=== PATIENT | female | born 1960 | race Caucasian/White ===

== ENCOUNTER 2017-04-11 15:30 | Outpatient (CLI) | payer MEDICARE, OTHER | END 2017-04-11 15:31 | disposition critical access hospital (66) | LOC: EMS 15:30 | PROVIDERS: ATTEND Surgery | DX: R11.0 Nausea (principal); R19.7 Diarrhea, unspecified; R53.1 Weakness | CPT/HCPCS: A0425; A0429 ==

== ENCOUNTER 2017-04-11 16:03 | Emergency (ER) | payer MEDICARE, OTHER ==
[2017-04-11] MEDS ORDERED: SODIUM CHLORIDE 0.9% 1,000 ML IV ONE ×2 (16:14)
[2017-04-11] MEDS ORDERED: ONDANSETRON 4 MG/2 ML VIAL IVP STA (16:20)
--- NOTE | 2017-04-11 16:22 | ED Physician Documentation ---
PD HPI NVD - Stated complaint Stated Complaint: DIARRHEA - Chief complaint Chief Complaint: Abd Pain - History obtained from History obtained from: Patient, EMS - History of Present Illness Timing - onset: How many days ago (2) Timing - duration: Days (2) Timing - details: Gradual onset Pain level max: 0 Pain level now: 0 Associated symptoms: No: Fever, Abdominal pain, Chest pain, Hematemesis, Melena , Hematochezia, Dizzy, Near syncope / syncope, Loss of appetite, Weight loss, Dysuria, Hematuria, Vaginal bleeding Contributing factors: No: Sick contact, Bad food, Travel, Recent antibiotics, Alcohol use, Anticoagulated, Diabetes Improved by: Other (nothing) Worsened by: Other (nothing) Recently seen: Not recently seen - Additonal information Additional information: Patient is a 56-year-old diabetic female who presents to the emergency department with diarrhea for the past 2 days. She states that she has had 5 episodes of diarrhea between yesterday and today. No fevers. No abdominal pain. Has had nausea but no vomiting. Blood sugar 112 today. Review of Systems Constitutional: denies: Fever, Chills Ears: denies: Ear pain Nose: denies: Rhinorrhea / runny nose, Congestion Throat: denies: Sore throat Cardiac: denies: Chest pain / pressure Respiratory: denies: Cough GI: reports: Nausea, Diarrhea. 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 - Present Medications Home Medications: Ambulatory Orders Medication Instructions Recorded Confirmed Atenolol 200 mg PO DAILY 10/23/12 04/11/17 Diphenhydramine HCl [Benadryl] 25 mg PO DAILY 10/23/12 04/11/17 Insulin Glargine,Hum.rec.anlog 21 unit SQ BID 10/23/12 04/11/17 [Lantus] Levothyroxine [Synthroid] 150 mcg PO QDAC 10/23/12 04/11/17 Pregabalin [Lyrica] 75 mg PO BID 10/23/12 04/11/17 Sertraline [Zoloft] 100 mg PO DAILY 10/23/12 04/11/17 Telmisartan [Micardis] 80 mg PO HS 10/23/12 04/11/17 Warfarin Sodium [Coumadin] 2.5 mg PO DAILY 10/23/12 04/11/17 Warfarin Sodium [Coumadin] 5 mg PO DAILY 10/23/12 04/11/17 Simvastatin [Zocor] 20 mg PO DAILY 02/26/13 04/11/17 Ondansetron Odt [Zofran] 4 mg TL Q6H PRN #10 tablet 04/11/17 - Allergies Allergies/Adverse Reactions: Allergies Allergy/AdvReac Type Severity Reaction Status Date / Time naproxen [From Naprosyn] Allergy Intermediate Edema Verified 04/11/17 16:16 piroxicam [From Feldene] Allergy Intermediate Rash Verified 04/11/17 16:16 prednisone Allergy Intermediate Edema Verified 04/11/17 16:16 codeine AdvReac Intermediate Emesis Verified 04/11/17 16:16 - Social History Does the pt smoke?: No Smoking Status: Never smoker PD ED PE NORMAL - Vitals Vital signs reviewed: Yes - General General: Alert and oriented X 3, No acute distress, Well developed/nourished - HEENT HEENT: Moist mucous membranes - Neck Neck: Supple, no meningeal sign - Cardiac Cardiac: RRR, Strong equal pulses - Respiratory Respiratory: No respiratory distress, Clear bilaterally - Abdomen Abdomen: Soft, Non tender, Non distended - Back Back: No CVA TTP - Derm Derm: Warm and dry, No rash - Extremities Extremities: No edema - Neuro Neuro: Alert and oriented X 3 - Psych Psych: Normal mood, Normal affect Results - Vitals Vitals: Vital Signs - 24 hr 04/11/17 04/11/17 04/11/17 16:13 16:20 18:12 Temperature 35.8 C L 37.0 C Heart Rate 56 L 80 Respiratory 25 H 14 Rate Blood Pressure 144/78 H 125/60 O2 Saturation 99 95 Oxygen O2 Source Room air - Labs Labs: Laboratory Tests 04/11/17 04/11/17 04/11/17 16:36 16:36 16:36 WBC 6.2 RBC 3.95 L Hgb 12.4 Hct 37.5 MCV 94.9 MCH 31.3 H MCHC 33.0 RDW 13.7 Plt Count 123 L MPV 8.1 Neut # 3.8 Lymph # 1.5 [place] # 0.6 Eos # 0.2 Baso # 0.1 Absolute Nucleated RBC 0.01 Nucleated RBC % 0.1 PT 24.5 H INR 2.2 H Sodium 139 Potassium 4.0 Chloride 104 Carbon Dioxide 24 Anion Gap 11.0 BUN 17 Creatinine 1.5 H Estimated GFR (MDRD) 36 L Glucose 103 H Calcium 9.4 Total Bilirubin 1.1 H AST 200 H ALT 32 Alkaline Phosphatase 58 Total Protein 7.2 Albumin 3.8 Globulin 3.4 Albumin/Globulin Ratio 1.1 Lipase 38 PD MEDICAL DECISION MAKING - ED course Complexity details: reviewed results, re-evaluated patient, considered differential, d/w patient ED course: Patient is a 56-year-old diabetic female who presents to the emergency department with diarrhea and nausea for 2 days. Has had approximately 5 total episodes of diarrhea. No diarrhea here. Feels better after IV fluids and Zofran. Tolerating p.o. without difficulty. Abdomen is soft, nontender nondistended. No evidence of diverticulitis, bowel obstruction, sepsis. Will continue supportive care and follow-up with her doctor. Diarrhea is nonbloody. Patient counseled regarding signs and symptoms for which I believe and urgent re-evaluation would be necessary. Patient with good understanding of and agreement to plan and is comfortable going home at this time This document was made in part using voice recognition software. While efforts are made to proofread this document, sound alike and grammatical errors may occur. Departure - Departure Disposition: 01 Home, Self Care Clinical Impression: Viral gastroenteritis Condition: Good Instructions: ED Gastroenteritis Viral Follow-Up: your,doctor in 1 week [Other] Prescriptions: Ondansetron Odt [Zofran] 4 mg TL Q6H PRN #10 tablet PRN Reason: Nausea / Vomiting Comments: Return if you worsen. This should improve over the next 2-3 days. Discharge Date/Time: 04/11/17 18:14
[2017-04-11] MEDS ORDERED: ONDANSETRON 4 MG/2 ML VIAL ONE (16:30)
[2017-04-11 16:50] LABS: BASOPHILS # (AUTO) 0.1 10^3/uL (0.0-0.1); EOSINOPHILS # (AUTO) 0.2 10^3/uL (0.0-0.7); EOSINOPHILS % (AUTO) 2.5 %; HCT - HEMATOCRIT 37.5 % (37.0-47.0); HGB - HEMOGLOBIN 12.4 g/dL (12.0-16.0); LYMPHOCYTES # (AUTO) 1.5 10^3/uL (1.5-3.5); LYMPHOCYTES % (AUTO) 24.9 %; MEAN CORPUSCULAR HEMOGLOBIN 31.3 pg (27.0-31.0); MEAN CORPUSCULAR VOLUME 94.9 fL (81.0-99.0); MEAN PLATELET VOLUME 8.1 fL (7.9-10.8); MONOCYTES # (AUTO) 0.6 10^3/uL (0.0-1.0); MONOCYTES % (AUTO) 9.7 %; NEUTROPHILS # (AUTO) 3.8 10^3/uL (1.5-6.6); NEUTROPHILS % (AUTO) 61.9 %; NUCLEATED RED BLOOD CELLS AUTO 0.1 /100WBC; RED BLOOD COUNT 3.95 10^6/uL (4.20-5.40); RED CELL DISTRIBUTION WIDTH 13.7 % (12.0-15.0); UNCORRECTED WHITE BLOOD COUNT 6.2 x10^3/uL; WHITE BLOOD COUNT 6.2 x10^3/uL (4.8-10.8)
[2017-04-11 17:02] LABS: ALBUMIN/GLOBULIN RATIO 1.1 (1.0-2.2); BILIRUBIN,TOTAL 1.1 mg/dL (0.2-1.0); CALCIUM 9.4 mg/dL (8.5-10.3); CREATININE 1.5 mg/dL (0.4-1.0); TOTAL PROTEIN 7.2 g/dL (6.7-8.2)
[2017-04-11 17:21] LABS: INR 2.2 (0.8-1.2); PT - PROTHROMBIN TIME 24.5 secs (9.9-12.6)
[2017-04-11 18:13] VITALS: BP 125/60
== END 2017-04-11 18:14 | disposition home or self-care (01) ==
LOC: EDUNIT# → ED 16:03
DX: A08.4 Viral intestinal infection, unspecified (principal); I10 Essential (primary) hypertension; E78.00 Pure hypercholesterolemia, unspecified; E03.9 Hypothyroidism, unspecified; Z79.01 Long term (current) use of anticoagulants
CPT/HCPCS: 36415; 80053; 83690; 85025; 85610; 96361; 96374; 99284

== ENCOUNTER 2021-03-08 12:50 | Outpatient (CLI) | payer MEDICARE, OTHER | END 2021-03-08 12:51 | disposition critical access hospital (66) | LOC: EMS 12:50 | DX: R42 Dizziness and giddiness (principal); R06.02 Shortness of breath; I95.1 Orthostatic hypotension | CPT/HCPCS: A0425; A0427 ==

== ENCOUNTER 2021-03-08 13:14 | Emergency (ER) | payer MEDICARE, OTHER ==
[2021-03-08 14:05] LABS: BASOPHILS % (AUTO) 0.6 %; EOSINOPHILS # (AUTO) 0.3 10^3/uL (0.0-0.7); EOSINOPHILS % (AUTO) 3.6 %; HCT - HEMATOCRIT 35.8 % (37.0-47.0); HGB - HEMOGLOBIN 10.9 g/dL (12.0-16.0); LYMPHOCYTES # (AUTO) 1.2 10^3/uL (1.5-3.5); LYMPHOCYTES % (AUTO) 16.5 %; MEAN CORPUSCULAR HEMOGLOBIN 29.2 pg (27.0-31.0); MEAN CORPUSCULAR HGB CONC 30.4 g/dL (32.0-36.0); MEAN PLATELET VOLUME 10.6 fL (7.9-10.8); MONOCYTES # (AUTO) 0.7 10^3/uL (0.0-1.0); MONOCYTES % (AUTO) 8.9 %; NEUTROPHILS # (AUTO) 5.1 10^3/uL (1.5-6.6); NEUTROPHILS % (AUTO) 70.1 %; PLT - PLATELET COUNT 157 10^3/uL (130-450); RED BLOOD COUNT 3.73 10^6/uL (4.20-5.40); RED CELL DISTRIBUTION WIDTH 14.6 % (12.0-15.0); WHITE BLOOD COUNT 7.3 x10^3/uL (4.8-10.8)
[2021-03-08 14:06] LABS: VBG HCO3 24.6 mmol/L (23-28); VBG PCO2 45.6 mmHg (41-51); VBG PH 7.34 (7.31-7.41)
[2021-03-08 14:12] LABS: INR 1.4 (0.8-1.2); PT - PROTHROMBIN TIME 15.7 secs (9.9-12.6)
[2021-03-08 14:18] LABS: ALBUMIN 3.1 g/dL (3.2-5.5); ALBUMIN/GLOBULIN RATIO 0.7 (1.0-2.2); ALKALINE PHOSPHATASE 82 IU/L (42-121); ALT ALANINE AMINOTRANSFERASE 10 IU/L (10-60); AST ASPARTATE AMINOTRANSFERASE 15 IU/L (10-42); BILIRUBIN,TOTAL 1.1 mg/dL (0.2-1.0); BUN - BLOOD UREA NITROGEN 19 mg/dL (6-20); CALCIUM 8.8 mg/dL (8.5-10.3); CARBON DIOXIDE - CO2 22 mmol/L (21-32); CHLORIDE 103 mmol/L (101-111); CREATININE 1.5 mg/dL (0.4-1.0); GFR - MDRD 35 (>89); GLUCOSE 115 mg/dL (70-100); LIPASE 38 U/L (22-51); POTASSIUM 3.4 mmol/L (3.5-5.0); SODIUM 136 mmol/L (135-145); TOTAL PROTEIN 7.5 g/dL (6.7-8.2)
--- NOTE | 2021-03-08 14:44 | XRAY Report ---
PROCEDURE: Chest 1 View X-Ray INDICATIONS: Chest pain TECHNIQUE: One view of the chest was acquired. COMPARISON: Prior comparison dated 04/14/2010 not available for review. Comparison FINDINGS: Surgical changes and devices: None. Lungs and pleura: No pleural effusions or pneumothorax. There is chronic appearing interstitial prom inence predominantly in the right upper lung zone without focal consolidation. Findings are most pron ounced in the right upper lung zone. No pneumothorax or pleural effusion.. Mediastinum: Mediastinal contours appear normal. Heart size is normal. Bones and chest wall: No suspicious bony lesions. Overlying soft tissues appear unremarkable. IMPRESSION: Chronic appearing interstitial prominence most pronounced in the right upper lung zone. No focal airs pace disease. Recommend follow-up chest radiograph 6-8 weeks after treatment to document stability ve rsus resolution. Reviewed by: Choco Nixon MD on 03/08/2021 2:43 PM PDT Approved by: Choco Nixon MD on 03/08/2021 2:43 PM PDT Station ID: [id number]
[2021-03-08 14:48] LABS: KETONES, SERUM (ACETEST) NEGATIVE (NEGATIVE)
[2021-03-08] MEDS ORDERED: SODIUM CHLORIDE 0.9% 1,000 ML IV STA (15:09)
--- NOTE | 2021-03-08 15:18 | XRAY Report ---
PROCEDURE: Tib/Fib RT INDICATIONS: RLE wound TECHNIQUE: 2 views of the tibia and fibula were acquired. COMPARISON: Right lower leg MRI 02/26/2014 FINDINGS: Bones: No acute fractures or dislocations. No suspicious bony lesions. The anterior cortex of the tibia appears mildly irregular on the lateral view, which may be secondary to overlying calcification s versus possibly subacute or chronic osteomyelitis. Soft tissues: A large area of skin irregularity is seen at the anterolateral aspect of the lower leg . Prominent soft tissue calcifications are present. Soft tissue edema is seen. IMPRESSION: Large area of skin irregularity with soft tissue edema and soft tissue calcifications, consistent wit h patient's known chronic wound. There is an irregular appearance of the adjacent anterior cortex of the tibia that may be partially related to superimposed soft tissue calcifications, although a subacu te to chronic osteomyelitis is not excluded. Reviewed by: Fredrick Hernandez MD on 03/08/2021 3:16 PM PDT Approved by: Fredrick Hernandez MD on 03/08/2021 3:16 PM PDT Station ID: [id number]
--- NOTE | 2021-03-08 15:20 | ED Physician Documentation ---
History of Present Illness - Stated complaint Stated Complaint: DIZZINESS - Chief complaint Chief Complaint: Cardiac - History obtained from History obtained from: Patient - History of Present Illness Timing: Today Pain level max: 0 Pain level now: 0 - Additonal information Additional information: Patient is a 60-year-old female who presents to the emergency department stating she has had intermittent lightheadedness and dizziness for the past month. Comes and goes. Feels like she is lightheaded when she stands up. Worse with standing, better with lying down. She states she is diabetic but has been able to control her sugars with diet and therefore is off insulin now. 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 She states that she has not been seeing wound care but has been taking care of this at home herself. She is concerned about potential infection. No fevers. No chills. No falls. No trauma. She states that the wound has been present on her leg for the last 20 years. Has been through multiple rounds of wound care without resolution. She states she has had osteomyelitis in her tibia before. 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 - Present Medications Home Medications: Ambulatory Orders Medication Instructions Recorded Confirmed Atenolol 200 mg PO DAILY 10/23/12 04/11/17 Insulin Glargine,Hum.rec.anlog 21 unit SQ BID 10/23/12 04/11/17 [Lantus] Levothyroxine [Synthroid] 150 mcg PO QDAC 10/23/12 04/11/17 Pregabalin [Lyrica] 75 mg PO BID 10/23/12 04/11/17 Sertraline [Zoloft] 100 mg PO DAILY 10/23/12 04/11/17 Telmisartan [Micardis] 80 mg PO HS 10/23/12 04/11/17 Warfarin Sodium [Coumadin] 2.5 mg PO DAILY 10/23/12 04/11/17 Warfarin Sodium [Coumadin] 5 mg PO DAILY 10/23/12 04/11/17 diphenhydrAMINE HCl [Benadryl] 25 mg PO DAILY 10/23/12 04/11/17 Simvastatin [Zocor] 20 mg PO DAILY 02/26/13 04/11/17 Ondansetron Odt [Zofran] 4 mg TL Q6H PRN #10 tablet 04/11/17 Doxycycline Monohydrate 100 mg PO BID #20 cap 03/08/21 Metoprolol Tartrate [Lopressor] 25 mg PO Q6H PRN #30 tablet 03/08/21 cephALEXin [Keflex] 500 mg PO Q6H #40 cap 03/08/21 - Allergies Allergies/Adverse Reactions: Allergies Allergy/AdvReac Type Severity Reaction Status Date / Time naproxen [From Naprosyn] Allergy Intermediate Edema Verified 04/11/17 16:16 piroxicam [From Feldene] Allergy Intermediate Rash Verified 04/11/17 16:16 prednisone Allergy Intermediate Edema Verified 04/11/17 16:16 codeine AdvReac Intermediate Emesis Verified 04/11/17 16:16 - Social History Does the pt smoke?: No Smoking Status: Never smoker PD ED PE NORMAL - Vitals Vital signs reviewed: Yes - General General: Alert and oriented X 3, No acute distress - HEENT HEENT: Moist mucous membranes - Neck Neck: Supple, no meningeal sign - Cardiac Cardiac: RRR - Respiratory Respiratory: No respiratory distress, Clear bilaterally - Abdomen Abdomen: Soft, Non tender, Non distended - Derm Derm: Warm and dry - Extremities Extremities: Other (There is a large open wound to the right anterior tibia. Foul-smelling and draining. Appears chronic in nature. It is approximately 6 x 10 cm.) - Neuro Neuro: Alert and oriented X 3 Results - Vitals Vitals: Vital Signs - 24 hr 03/08/21 03/08/21 03/08/21 13:15 14:03 16:08 Temperature 36.2 C L Heart Rate 117 H 106 H 85 Respiratory 16 11 L 16 Rate Blood Pressure 104/71 97/73 117/70 O2 Saturation 99 100 97 Oxygen O2 Source Room air - EKG (time done) 1330 Rate: Rate (enter#) (103) Rhythm: Atrial fibrillation [place]: Normal Intervals: Normal [place] QRS: Normal Ischemia: Normal ST segments - Labs Labs: Microbiology 03/08/21 15:40 Wound Culture - Preliminary Left Lower Extremity - Abscess Laboratory Tests 03/08/21 03/08/21 03/08/21 13:52 13:52 13:57 WBC 7.3 RBC 3.73 L Hgb 10.9 L Hct 35.8 L MCV 96.0 MCH 29.2 MCHC 30.4 L RDW 14.6 Plt Count 157 MPV 10.6 Neut # (Auto) 5.1 Lymph # (Auto) 1.2 L [place] # (Auto) 0.7 Eos # (Auto) 0.3 Baso # (Auto) 0.0 Absolute Nucleated RBC 0.00 Nucleated RBC % 0.0 ESR PT 15.7 H INR 1.4 H VBG pH 7.340 VBG pCO2 45.6 VBG pO2 34.0 VBG HCO3 24.6 VBG Total CO2 26.0 VBG O2 Saturation 61.0 VBG Base Excess -1.0 Sodium Potassium Chloride Carbon Dioxide Anion Gap BUN Creatinine Estimated GFR (MDRD) Glucose Calcium Total Bilirubin AST ALT Alkaline Phosphatase Troponin I High Sens C-Reactive Protein Total Protein Albumin Globulin Albumin/Globulin Ratio Lipase Serum Ketones 03/08/21 03/08/21 03/08/21 13:57 13:57 13:57 WBC RBC Hgb Hct MCV MCH MCHC RDW Plt Count MPV Neut # (Auto) Lymph # (Auto) [place] # (Auto) Eos # (Auto) Baso # (Auto) Absolute Nucleated RBC Nucleated RBC % ESR 77 H PT INR VBG pH VBG pCO2 VBG pO2 VBG HCO3 VBG Total CO2 VBG O2 Saturation VBG Base Excess Sodium 136 Potassium 3.4 L Chloride 103 Carbon Dioxide 22 Anion Gap 11.0 BUN 19 Creatinine 1.5 H Estimated GFR (MDRD) 35 L Glucose 115 H Calcium 8.8 Total Bilirubin 1.1 H AST 15 ALT 10 Alkaline Phosphatase 82 Troponin I High Sens 11.1 C-Reactive Protein Total Protein 7.5 Albumin 3.1 L Globulin 4.4 H Albumin/Globulin Ratio 0.7 L Lipase 38 Serum Ketones NEGATIVE 03/08/21 13:57 WBC RBC Hgb Hct MCV MCH MCHC RDW Plt Count MPV Neut # (Auto) Lymph # (Auto) [place] # (Auto) Eos # (Auto) Baso # (Auto) Absolute Nucleated RBC Nucleated RBC % ESR PT INR VBG pH VBG pCO2 VBG pO2 VBG HCO3 VBG Total CO2 VBG O2 Saturation VBG Base Excess Sodium Potassium Chloride Carbon Dioxide Anion Gap BUN Creatinine Estimated GFR (MDRD) Glucose Calcium Total Bilirubin AST ALT Alkaline Phosphatase Troponin I High Sens C-Reactive Protein 3.3 H Total Protein Albumin Globulin Albumin/Globulin Ratio Lipase Serum Ketones - Rads (name of study) R tib fib xray Radiology: Final report received, EMP read contemporaneously, See rad report cxr Radiology: Final report received, EMP read contemporaneously, See rad report PD MEDICAL DECISION MAKING - ED course Complexity details: reviewed results, re-evaluated patient, considered differential, d/w patient ED course: 60-year-old female with 2 issues, the first appears to be paroxysmal atrial fibrillation. She converted back to a sinus rhythm while in the emergency de partment and her dizziness resolved. She is already anticoagulated and on a beta-allison. She states that she has had an irregular heartbeat in the past. The second is the right lower extremity wound, chronic for 20 years the patient states has been seen by wound care multiple times. Wound culture obtained. The wound dried by being exposed to the air in the emergency department, recommend that she leave it open to the air as much as possible. Mepitel was placed over the wound bed. We will prescribe antibiotics, close follow-up with her doctor and recommend a wound care referral. No evidence of active osteomyelitis. The patient states she has had prior osteomyelitis in that leg. Patient counseled regarding signs and symptoms for which I believe and urgent re-evaluation would be necessary. Patient with good understanding of and agreement to plan and is comfortable going home at this time This document was made in part using voice recognition software. While efforts are made to proofread this document, sound alike and grammatical errors may occur. IMPRESSION: Large area of skin irregularity with soft tissue edema and soft tissue calcifications, consistent with patient's known chronic wound. There is an irregular appearance of the adjacent anterior cortex of the tibia that may be partially related to superimposed soft tissue calcifications, although a subacute to chronic osteomyelitis is not excluded. IMPRESSION: Chronic appearing interstitial prominence most pronounced in the right upper lung zone. No focal airspace disease. Recommend follow-up chest radiograph 6-8 weeks after treatment to document stability versus resolution. Departure - Departure Disposition: Home, Self Care Clinical Impression: Paroxysmal atrial fibrillation, Chronic wound of extremity Condition: Good Instructions: ED Afib, ED Wound Care Follow-Up: Rosie Franklin MD [Primary Care Provider] - Within 1 week Prescriptions: Doxycycline Monohydrate 100 mg PO BID #20 cap cephALEXin [Keflex] 500 mg PO Q6H #40 cap Metoprolol Tartrate [Lopressor] 25 mg PO Q6H PRN #30 tablet PRN Reason: Tachycardia Comments: You were found to have paroxysmal atrial fibrillation today. You are already on metoprolol for this. We will add short acting metoprolol if you feel your heart racing. Please follow-up with your doctor for further care. Continue your Eliquis at home. Return if you worsen. You should also be referred to wound care for the chronic wound on your leg. We will start you on antibiotics, but this will need long-term care. The Mepitel can stay in place for 10 to 14 days and you can change the outer dressing. Return if you worsen. Try to leave the wound open to the air as much as possible. Your prescriptions were sent to the [facility] today. Discharge Date/Time: 03/08/21 16:20
[2021-03-08] MEDS ORDERED: DOXYCYCLINE 100 MG TABLET PO STA (15:50)
[2021-03-08] MEDS ORDERED: cephALEXin 250 MG CAPSULE PO STA (15:50)
[2021-03-08 16:09] VITALS: BP 117/70
== END 2021-03-08 16:20 | disposition home or self-care (01) ==
LOC: EDUNIT# → ED 13:14
DX: I48.0 Paroxysmal atrial fibrillation (principal); E11.622 Type 2 diabetes mellitus with other skin ulcer; L97.819 Non-pressure chronic ulcer of other part of right lower leg with unspecified severity; Z79.01 Long term (current) use of anticoagulants
CPT/HCPCS: 36415; 71045; 73590; 80053; 82009; 82803; 83690; 84484; 85025; 85610; 85651; 86140; 87070; 87181; 87205; 93005; 99284; A9270

== ENCOUNTER 2021-03-20 09:08 | Outpatient (CLI) | payer MEDICARE, OTHER | END 2021-03-20 09:09 | disposition critical access hospital (66) | LOC: EMS 09:08 | DX: R53.1 Weakness (principal); R42 Dizziness and giddiness; S81.801A Unspecified open wound, right lower leg, initial encounter | CPT/HCPCS: A0425; A0429 ==

== ENCOUNTER 2021-03-20 09:28 | Emergency (ER) | payer MEDICARE, OTHER ==
[2021-03-20] MEDS ORDERED: SODIUM CHLORIDE 0.9% 1,000 ML IV STA (09:39)
--- NOTE | 2021-03-20 09:47 | ED Physician Documentation ---
History of Present Illness - Stated complaint Stated Complaint: LEG INFECTION - Chief complaint Chief Complaint: Ext Problem - History obtained from History obtained from: Patient, EMS - Additonal information Additional information: Patient comes emergency department via EMS for chief complaint of generalized weakness. The patient has a history of chronic pain and diabetes. 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 Patient states that she has not noticed any drainage from the wound and the skin does not look any redder than usual. She states she saw her primary doctor, who she clarifies to be "Dr. Bassett", last week. At that time, bone was reportedly seen in the floor of the wound, so Augmentin was started. Patient denies having had any imaging studies to determine whether she had osteomyelitis. She is not on any IV antibiotics. The patient has not had any fevers or chills. No swelling of the leg. She states that she has just been feeling more "lethargic", which she clarifies to be a low energy feeling. Her finally called EMS for her today. The patient states she has been drinking plenty of water but has not been eating healthful food recently. She takes a long-acting oxycodone as well as a shorter acting for breakthrough pain. No other symptoms of illness, such as cough, shortness of breath, abdominal pain, nausea, or vomiting. No diarrhea or dysuria. Review of Systems Ten Systems: 10 systems reviewed and negative Constitutional: reports: Reviewed and negative Eyes: reports: Reviewed and negative Ears: reports: Reviewed and negative Nose: reports: Reviewed and negative Throat: reports: Reviewed and negative Cardiac: reports: Reviewed and negative Respiratory: reports: Reviewed and negative GI: reports: Reviewed and negative : reports: Reviewed and negative Skin: reports: Reviewed and negative Musculoskeletal: reports: Reviewed and negative Neurologic: reports: Reviewed and negative Psychiatric: reports: Reviewed and negative Endocrine: reports: Reviewed and negative Immunocompromised: reports: Reviewed and negative PD PAST MEDICAL HISTORY - Past Medical History Cardiovascular: Hypertension, High cholesterol Respiratory: None Endocrine/Autoimmune: HyPOthyroidism, Other : None HEENT: None Psych: Depression Musculoskeletal: Fatigue Derm: None - Past Surgical History /[employer]EL: section, 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 - Present Medications Home Medications: Ambulatory Orders Medication Instructions Recorded Confirmed Levothyroxine [Synthroid] 150 mcg PO QDAC 10/23/12 03/20/21 Pregabalin [Lyrica] 75 mg PO BID 10/23/12 03/20/21 Sertraline [Zoloft] 100 mg PO DAILY 10/23/12 03/20/21 Telmisartan [Micardis] 80 mg PO HS 10/23/12 03/20/21 Simvastatin [Zocor] 40 mg PO DAILY 02/26/13 03/20/21 Amox/Clav 500/125 [Augmentin 1 tablet PO Q12H 03/20/21 03/20/21 500/125] Apixaban [Eliquis] 5 mg ORAL BID 03/20/21 03/20/21 Duloxetine HCl [Cymbalta] 60 mg PO DAILY 03/20/21 03/20/21 Metoprolol Succinate [Toprol Xl] 25 mg PO DAILY 03/20/21 03/20/21 oxyCODONE ER [OxyCONTIN] 10 mg PO Q12H 03/20/21 03/20/21 oxyCODONE [Roxicodone] 5 mg PO Q8HR PRN 03/20/21 03/20/21 - Allergies Allergies/Adverse Reactions: Allergies Allergy/AdvReac Type Severity Reaction Status Date / Time naproxen [From Naprosyn] Allergy Intermediate Edema Verified 04/11/17 16:16 piroxicam [From Feldene] Allergy Intermediate Rash Verified 04/11/17 16:16 prednisone Allergy Intermediate Edema Verified 04/11/17 16:16 codeine AdvReac Intermediate Emesis Verified 04/11/17 16:16 - Social History Does the pt smoke?: No Smoking Status: Never smoker PD ED PE NORMAL - Vitals Vital signs reviewed: Yes - General General: Alert and oriented X 3, No acute distress, Well developed/nourished (Obese) - HEENT HEENT: Atraumatic, PERRL, EOMI, Moist mucous membranes - Neck Neck: Supple, no meningeal sign - Cardiac Cardiac: RRR, No murmur, Strong equal pulses - Respiratory Respiratory: No respiratory distress, Clear bilaterally - Abdomen Abdomen: Soft, Non tender, Other (Obese abdomen, nontender) - Back Back: No CVA TTP - Derm Derm: Warm and dry, No rash, Other (Large, dry, scabbed, chronic appearing anterior tibial ulcer the right lower extremity. Extensive scarring around wound, but no intense erythema or induration. No fluctuance.) - Extremities Extremities: No deformity, No edema, No calf tenderness / cord - Neuro Neuro: Alert and oriented X 3 - Psych Psych: Normal mood, Normal affect Results - Vitals Vitals: Oxygen O2 Source Room air - Labs Labs: Laboratory Tests 03/20/21 03/20/21 03/20/21 09:51 10:01 10:01 WBC 15.2 H RBC 4.10 L Hgb 12.0 Hct 38.1 MCV 92.9 MCH 29.3 MCHC 31.5 L RDW 15.6 H Plt Count 225 MPV 10.6 Neut # (Auto) 9.6 H Lymph # (Auto) 3.7 H Am[place] # (Auto) 1.6 H Eos # (Auto) 0.1 Baso # (Auto) 0.1 Absolute Nucleated RBC 0.02 Nucleated RBC % 0.1 Manual Slide Review Indicated RBC Morph Micro Appear 3+ ANISOCYTOSIS Sodium 135 Potassium 3.9 Chloride 100 L Carbon Dioxide 22 Anion Gap 13.0 BUN 41 H Creatinine 2.0 H Estimated GFR (MDRD) 25 L Glucose 139 H Calcium 8.8 Total Bilirubin 1.5 H AST 20 ALT 13 Alkaline Phosphatase 107 Total Protein 7.4 Albumin 3.4 Globulin 4.0 Albumin/Globulin Ratio 0.9 L Lipase 41 Urine Color DARK YELLOW Urine Clarity HAZY Urine pH 5.0 Ur Specific [place] >=1.030 H Urine Protein NEGATIVE Urine Glucose (UA) NEGATIVE Urine Ketones TRACE Urine Occult Blood SMALL H Urine Nitrite NEGATIVE Urine Bilirubin NEGATIVE Urine Urobilinogen 0.2 (NORMAL) Ur Leukocyte Esterase SMALL H Urine RBC 0-5 Urine WBC 11-25 H Ur Squamous Epith Cells MANY Squamous H Urine Bacteria Few Ur Microscopic Review INDICATED Urine Culture Comments NOT INDICATED PD MEDICAL DECISION MAKING - ED course Complexity details: reviewed results, re-evaluated patient, considered differential, d/w patient ED course: Patient was given the remainder of the liter 0.9 normal saline she had been started on by EMS and was worked up with laboratory studies and UA, as well as EKG. Her work-up was unremarkable. I did not find any evidence of infection of the chronic, scabbed ulcer on her anteroior tibial area. Pt is stable for d/c home. We have discussed ongoing management of the wound and the usual indications for return. Departure - Departure Disposition: Home, Self Care Clinical Impression: Dehydration Condition: Stable Instructions: ED Dehydration Comments: The labs show evidence of dehydration, which has been treated today with a liter of normal saline. Otherwise, no acute concerns have turned up on emergency department evaluation. Please be sure to drink lots of water throughout the day. You should aim to drink 8 to 10 glasses of water per day as in adults. Please follow-up with your primary doctor. Your wound does not appear to have infection on top of the chronic open sore and scabbing. Please continue your antibiotics until done. Discharge Date/Time: 03/20/21 11:40
[2021-03-20 10:07] LABS: GLUCOSE, URINE (UA) NEGATIVE (NEGATIVE); KETONES,URINE (UA) TRACE mg/dL (NEGATIVE); LEUKOCYTE ESTERASE, URINE SMALL (NEGATIVE); NITRITE,URINE NEGATIVE (NEGATIVE); OCCULT BLOOD,URINE SMALL (NEGATIVE); PROTEIN,URINE NEGATIVE (NEGATIVE); UROBILINOGEN,URINE 0.2 (NORMAL) E.U./dL (NORMAL)
[2021-03-20 10:07] LABS: BASOPHILS # (AUTO) 0.1 10^3/uL (0.0-0.1); BASOPHILS % (AUTO) 0.5 %; EOSINOPHILS # (AUTO) 0.1 10^3/uL (0.0-0.7); EOSINOPHILS % (AUTO) 0.4 %; HCT - HEMATOCRIT 38.1 % (37.0-47.0); LYMPHOCYTES # (AUTO) 3.7 10^3/uL (1.5-3.5); LYMPHOCYTES % (AUTO) 24.4 %; MEAN CORPUSCULAR HEMOGLOBIN 29.3 pg (27.0-31.0); MEAN CORPUSCULAR HGB CONC 31.5 g/dL (32.0-36.0); MEAN CORPUSCULAR VOLUME 92.9 fL (81.0-99.0); MEAN PLATELET VOLUME 10.6 fL (7.9-10.8); MONOCYTES # (AUTO) 1.6 10^3/uL (0.0-1.0); MONOCYTES % (AUTO) 10.5 %; NEUTROPHILS # (AUTO) 9.6 10^3/uL (1.5-6.6); NEUTROPHILS % (AUTO) 63.3 %; NRBC ABSOLUTE COUNT (AUTO) 0.02 x10^3/uL; NUCLEATED RED BLOOD CELLS AUTO 0.1 /100WBC; PLT - PLATELET COUNT 225 10^3/uL (130-450); RED CELL DISTRIBUTION WIDTH 15.6 % (12.0-15.0); WHITE BLOOD COUNT 15.2 x10^3/uL (4.8-10.8)
[2021-03-20 10:13] LABS: SLIDE REVIEW? Indicated
[2021-03-20 10:14] LABS: BILIRUBIN,URINE NEGATIVE (NEGATIVE); CLARITY,URINE HAZY (CLEAR); ICTOTEST,URINE NEGATIVE
[2021-03-20 10:19] LABS: BACTERIA,URINE Few /HPF (None Seen); RBC,URINE 0-5 /HPF (0-5); SQUAMOUS EPITHELIAL CELL,UR MANY Squamous (<= Few)
[2021-03-20 10:21] LABS: ALBUMIN 3.4 g/dL (3.2-5.5); ALBUMIN/GLOBULIN RATIO 0.9 (1.0-2.2); BILIRUBIN,TOTAL 1.5 mg/dL (0.2-1.0); CALCIUM 8.8 mg/dL (8.5-10.3); POTASSIUM 3.9 mmol/L (3.5-5.0); TOTAL PROTEIN 7.4 g/dL (6.7-8.2)
[2021-03-20 10:31] LABS: RBC MORPHOLOGY (MULTIPLE) 3+ ANISOCYTOSIS (NORMAL)
[2021-03-20 11:34] VITALS: BP 114/79
== END 2021-03-20 11:40 | disposition home or self-care (01) ==
LOC: EDUNIT# → ED 09:28
DX: E86.0 Dehydration (principal); E11.622 Type 2 diabetes mellitus with other skin ulcer; L97.219 Non-pressure chronic ulcer of right calf with unspecified severity; I10 Essential (primary) hypertension; I44.1 Atrioventricular block, second degree; I49.3 Ventricular premature depolarization; Z79.01 Long term (current) use of anticoagulants
CPT/HCPCS: 36415; 80053; 81001; 81003; 83690; 85025; 87086; 93005; 96360; 99283

== ENCOUNTER 2021-03-22 08:44 | Outpatient (CLI) | payer MEDICARE, OTHER | END 2021-03-22 08:45 | disposition critical access hospital (66) | LOC: EMS 08:44 | DX: R55 Syncope and collapse (principal); R53.1 Weakness; R46.4 Slowness and poor responsiveness | CPT/HCPCS: A0425; A0429 ==

== ENCOUNTER 2021-03-22 09:06 | Inpatient (IN) | payer MEDICARE, OTHER ==
--- NOTE | 2021-03-22 09:19 | ED Physician Documentation ---
PD HPI SYNCOPE - Stated complaint Stated Complaint: AMS - History obtained from History obtained from: Patient - History of Present Illness Witnessed: Unwitnessed (feeling lightheaded and generally weak with recent meds, antibiotics and diarrhea. Was on Keflex and Doxy for leg infection, with culture showing e.coli. PMD changed to Augmentin 3 days ago and fatigue/diarrhea worse.) Timing - onset: How many days ago (worse weakness and lightheaded the past few days, and increased diarrhea a lot since change to augmentin.), How many weeks ago (has had feeling of fatigue for 2 weeks. Seen in ER for apparent new onset atrial fib (new Dx anyway). Also eval of leg infection. started on abx and metoprolol. She states diarrhea some with that. and feeling lightheaded, which was worse the past few days. She held her metoprolol the past 3 days.) Preceding symptoms: Nausea / vomiting (nausea and less intake, no vomiting. Has diarrhea.), Light headed, Generalized weakness. No: Headache, Chest pain, Palpitations, Abdominal pain Contributing factors: Recent med change (started on Metoprolol for atrial fib on . Has not taken it the past 3-4 days due to weakness. Has had diarrhea since abx, worse with abx change to Augmentin 3 days ago.), Just stood up Injury occurred: No: Fell, Head injury, Neck injury Similar symptoms before: Has not had sx before Recently seen: Clinic, Emergency Dept Review of Systems Constitutional: denies: Fever, Chills Nose: denies: Rhinorrhea / runny nose, Congestion Throat: denies: Sore throat Cardiac: denies: Chest pain / pressure, Palpitations, Pedal edema, Calf pain Respiratory: reports: Dyspnea. denies: Cough, Wheezing GI: reports: Nausea, Diarrhea. denies: Abdominal Pain, Vomiting, Constipation, Bloody / black stool : denies: Dysuria, Frequency Skin: denies: Rash, Lesions Musculoskeletal: denies: Extremity swelling Neurologic: reports: Generalized weakness, Near syncope. 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 - Present Medications Home Medications: Ambulatory Orders Medication Instructions Recorded Confirmed Pregabalin [Lyrica] 150 mg PO BID 10/23/12 03/22/21 Amox/Clav 500/125 [Augmentin 1 tablet PO Q12H 03/20/21 03/22/21 500/125] Apixaban [Eliquis] 5 mg PO BID 03/20/21 03/22/21 Duloxetine HCl [Cymbalta] 60 mg PO DAILY 03/20/21 03/22/21 Metoprolol Succinate [Toprol Xl] 25 mg PO DAILY 03/20/21 03/22/21 oxyCODONE ER [OxyCONTIN] 10 mg PO BID 03/20/21 03/22/21 oxyCODONE [Roxicodone] 5 mg PO Q8HR PRN 03/20/21 03/22/21 Levothyroxine Sodium [Synthroid] 150 mcg PO QDAC 03/22/21 03/22/21 Loperamide [Imodium] 2 mg PO ONCE 03/22/21 03/22/21 Ondansetron HCl [Zofran] 4 mg ORAL QID PRN 03/22/21 03/22/21 Simvastatin [Zocor] 40 mg PO QPM 03/22/21 03/22/21 Telmisartan 40 mg PO QPM 03/22/21 03/22/21 - Allergies Allergies/Adverse Reactions: Allergies Allergy/AdvReac Type Severity Reaction Status Date / Time naproxen [From Naprosyn] Allergy Intermediate Edema Verified 03/22/21 09:22 piroxicam [From Feldene] Allergy Intermediate Rash Verified 03/22/21 09:22 prednisone Allergy Intermediate Edema Verified 03/22/21 09:22 codeine AdvReac Intermediate Emesis Verified 03/22/21 09:22 - Social History Does the pt smoke?: No Smoking Status: Never smoker Does the pt drink ETOH?: No Does the pt have substance abuse?: No PD ED PE NORMAL - Vitals Vital signs reviewed: Yes (BP initially low. ) - General General: Alert and oriented X 3, Well developed/nourished, Other (mild pallor. ) - HEENT HEENT: Pharynx benign. No: Moist mucous membranes - Neck Neck: Supple, no meningeal sign, No adenopathy, No JVD - Cardiac Cardiac: No: RRR (irregular but rate controlled. ) - Respiratory Respiratory: Clear bilaterally - Abdomen Abdomen: Soft, Non tender, Non distended. No: Normal bowel sounds (increased) - Back Back: No CVA TTP - Derm Derm: Normal color, Warm and dry - Extremities Extremities: No tenderness to palpate, Normal ROM s pain, No edema, No calf tenderness / cord - Neuro Neuro: Alert and oriented X 3, No motor deficit, Normal speech Eye Opening: Spontaneous Motor: Obeys Commands Verbal: Oriented GCS Score: 15 - Psych Psych: Normal mood Results - Vitals Vitals: Vital Signs - 24 hr 03/22/21 03/22/21 03/22/21 09:17 09:59 10:28 Temperature 36.5 C Heart Rate 81 69 83 Respiratory 11 L 16 16 Rate Blood Pressure 73/45 L 73/40 L 81/56 L O2 Saturation 98 100 99 03/22/21 03/22/21 03/22/21 10:55 11:17 11:49 Temperature Heart Rate 67 69 88 Respiratory 11 L 11 L Rate Blood Pressure 81/56 L 85/50 L 87/40 L O2 Saturation 100 100 100 03/22/21 03/22/21 03/22/21 12:00 12:39 12:54 Temperature Heart Rate 65 65 69 Respiratory 14 22 Rate Blood Pressure 102/69 83/47 L 83/47 L O2 Saturation 100 100 100 03/22/21 03/22/21 03/22/21 13:08 14:03 14:48 Temperature Heart Rate 66 73 70 Respiratory 13 17 13 Rate Blood Pressure 96/52 L 98/49 L 87/50 L O2 Saturation 100 97 100 03/22/21 03/22/21 14:57 15:12 Temperature Heart Rate 69 71 Respiratory 10 L Rate Blood Pressure 101/57 L 109/65 O2 Saturation 100 100 Oxygen O2 Source Room air - EKG (time done) 10:01 Rate: Rate (enter#) (71) Rhythm: Atrial fibrillation [place]: Normal QRS: Normal Ischemia: Normal ST segments. No: ST elevation c/w ischemia, ST depression - Labs Labs: Laboratory Tests 03/22/21 03/22/21 03/22/21 09:52 09:52 09:52 WBC 11.9 H RBC 4.08 L Hgb 11.9 L Hct 38.6 MCV 94.6 MCH 29.2 MCHC 30.8 L RDW 17.2 H Plt Count 230 MPV 10.4 Neut # (Auto) 8.2 H Lymph # (Auto) 2.4 Webb # (Auto) 0.7 Eos # (Auto) 0.4 Baso # (Auto) 0.1 Absolute Nucleated RBC 0.00 Nucleated RBC % 0.0 PT INR APTT Sodium Potassium Chloride Carbon Dioxide Anion Gap BUN Creatinine Estimated GFR (MDRD) Glucose Lactic Acid 4.4 H* Calcium Total Bilirubin AST ALT Alkaline Phosphatase Troponin I High Sens 17.5 H* C-Reactive Protein Total Protein Albumin Globulin Albumin/Globulin Ratio Lipase Nasal Adenovirus (PCR) Nasal B. parapertussis DNA (PCR) Nasal Coronavir 229E PCR Nasal Coronavir HKU1 PCR Nasal Coronavir NL63 PCR Nasal Coronavir OC43 PCR Nasal Enterovir/Rhinovir PCR Nasal Influenza B PCR Nasal Influenza A PCR Nasal Parainfluen 1 PCR Nasal Parainfluen 2 PCR Nasal Parainfluen 3 PCR Nasal Parainfluen 4 PCR Nasal RSV (PCR) Nasal B.pertussis DNA PCR Nasal C.pneumoniae (PCR) David Human Metapneumo PCR Nasal M.pneumoniae (PCR) Nasal SARS-CoV-2 (PCR) Stl C. diff Tox B Gene 03/22/21 03/22/21 03/22/21 10:00 10:45 10:55 WBC RBC Hgb Hct MCV MCH MCHC RDW Plt Count MPV Neut # (Auto) Lymph # (Auto) Webb # (Auto) Eos # (Auto) Baso # (Auto) Absolute Nucleated RBC Nucleated RBC % PT INR APTT Sodium 135 Potassium 3.9 Chloride 103 Carbon Dioxide 18 L Anion Gap 14.0 H BUN 47 H Creatinine 3.6 H Estimated GFR (MDRD) 13 L Glucose 90 Lactic Acid Calcium 8.2 L Total Bilirubin 0.6 AST 24 ALT 14 Alkaline Phosphatase 89 Troponin I High Sens C-Reactive Protein < 1.0 Total Protein 6.3 L Albumin 2.8 L Globulin 3.5 Albumin/Globulin Ratio 0.8 L Lipase 91 H Nasal Adenovirus (PCR) NOT DETECTED Nasal B. parapertussis DNA (PCR) NOT DETECTED Nasal Coronavir 229E PCR NOT DETECTED Nasal Coronavir HKU1 PCR NOT DETECTED Nasal Coronavir NL63 PCR NOT DETECTED Nasal Coronavir OC43 PCR NOT DETECTED Nasal Enterovir/Rhinovir PCR NOT DETECTED Nasal Influenza B PCR NOT DETECTED Nasal Influenza A PCR NOT DETECTED Nasal Parainfluen 1 PCR NOT DETECTED Nasal Parainfluen 2 PCR NOT DETECTED Nasal Parainfluen 3 PCR NOT DETECTED Nasal Parainfluen 4 PCR NOT DETECTED Nasal RSV (PCR) NOT DETECTED Nasal B.pertussis DNA PCR NOT DETECTED Nasal C.pneumoniae (PCR) NOT DETECTED David Human Metapneumo PCR NOT DETECTED Nasal M.pneumoniae (PCR) NOT DETECTED Nasal SARS-CoV-2 (PCR) NOT DETECTED Stl C. diff Tox B Gene NEGATIVE 03/22/21 03/22/21 03/22/21 12:15 12:20 15:14 WBC RBC Hgb Hct MCV MCH MCHC RDW Plt Count MPV Neut # (Auto) Lymph # (Auto) Webb # (Auto) Eos # (Auto) Baso # (Auto) Absolute Nucleated RBC Nucleated RBC % PT 11.5 INR 1.0 APTT 13.4 L Sodium 136 Potassium 4.0 Chloride 106 Carbon Dioxide 20 L Anion Gap 10.0 BUN 43 H Creatinine 3.3 H Estimated GFR (MDRD) 14 L Glucose 120 H Lactic Acid 1.8 Calcium 7.4 L Total Bilirubin AST ALT Alkaline Phosphatase Troponin I High Sens C-Reactive Protein Total Protein Albumin Globulin Albumin/Globulin Ratio Lipase Nasal Adenovirus (PCR) Nasal B. parapertussis DNA (PCR) Nasal Coronavir 229E PCR Nasal Coronavir HKU1 PCR Nasal Coronavir NL63 PCR Nasal Coronavir OC43 PCR Nasal Enterovir/Rhinovir PCR Nasal Influenza B PCR Nasal Influenza A PCR Nasal Parainfluen 1 PCR Nasal Parainfluen 2 PCR Nasal Parainfluen 3 PCR Nasal Parainfluen 4 PCR Nasal RSV (PCR) Nasal B.pertussis DNA PCR Nasal C.pneumoniae (PCR) David Human Metapneumo PCR Nasal M.pneumoniae (PCR) Nasal SARS-CoV-2 (PCR) Stl C. diff Tox B Gene - Rads (name of study) chest xray Radiology: Prelim report reviewed (no acute process), See rad report PD MEDICAL DECISION MAKING - ED course Complexity details: reviewed old records (her wound culture from prior visit showed e.coli that was resistant to Ampicillin, so not sure why PMD changed her abx to Augmentin.), reviewed results, considered differential (weak and lightheaded, with low BP and diarrhea. Presume abx related diarrhea, eval for c.diff. Concern for sepsis from leg versus dehydration and effect of recent betablocker for atrial fib. ), d/w patient ED course: general weakness, lightheaded, nausea with diarrhea since on abx for leg infection. Infection not worse per se, no fever, so I think is underhydrated/ill from diarrhea and not septic from leg. Has low BP, improving with fluids. Elevated Creatinine and lactate. No doubt BP added effect from recent Rx for Metoprolol. Stay in the ER to evaluate stability since we do not have ICU beds available. Considering transfer or floor admission. Over the course of several hours the patient's blood pressure remained stable between 91 and 110 systolic. She main tained IV fluids. She looks well with pink color and feels good. Her lactate cleared and her creatinine is slightly improving. I do not get a sense of sepsis as the cause. I talked with the hospitalist again who concurs the patient seems stable enough to be admitted here. They are looking at being able to transfer the patient from the ICU anyway in case the patient does not do as well later. Departure - Departure Disposition: 66 [facility] DC/Xfer Clinical Impression: General weakness, Antibiotic-associated diarrhea, Chronic wound of extremity, Paroxysmal atrial fibrillation, DOUG (acute kidney injury) Hypotension Qualifiers: Hypotension type: unspecified hypotension type Qualified Code(s): I95.9 - Hypotension, unspecified Condition: Stable Record reviewed to determine appropriate education?: Yes Discharge Date/Time: 03/22/21 18:20
[2021-03-22] MEDS ORDERED: SODIUM CHLORIDE 0.9% 1,000 ML IV STA ×5 (09:50→16:16)
[2021-03-22 10:00] LABS: BASOPHILS # (AUTO) 0.1 10^3/uL (0.0-0.1); BASOPHILS % (AUTO) 0.6 %; EOSINOPHILS # (AUTO) 0.4 10^3/uL (0.0-0.7); EOSINOPHILS % (AUTO) 3.2 %; HCT - HEMATOCRIT 38.6 % (37.0-47.0); HGB - HEMOGLOBIN 11.9 g/dL (12.0-16.0); LYMPHOCYTES # (AUTO) 2.4 10^3/uL (1.5-3.5); LYMPHOCYTES % (AUTO) 19.9 %; MEAN CORPUSCULAR HEMOGLOBIN 29.2 pg (27.0-31.0); MEAN CORPUSCULAR HGB CONC 30.8 g/dL (32.0-36.0); MEAN CORPUSCULAR VOLUME 94.6 fL (81.0-99.0); MEAN PLATELET VOLUME 10.4 fL (7.9-10.8); MONOCYTES # (AUTO) 0.7 10^3/uL (0.0-1.0); NEUTROPHILS # (AUTO) 8.2 10^3/uL (1.5-6.6); NEUTROPHILS % (AUTO) 68.9 %; PLT - PLATELET COUNT 230 10^3/uL (130-450); RED BLOOD COUNT 4.08 10^6/uL (4.20-5.40); RED CELL DISTRIBUTION WIDTH 17.2 % (12.0-15.0); WHITE BLOOD COUNT 11.9 x10^3/uL (4.8-10.8)
[2021-03-22] MEDS ORDERED: cefTRIAXone 2 GM in SODIUM CHLORIDE 0.9% MINIBAG 100 ML IV STA (10:26)
--- NOTE | 2021-03-22 10:53 | XRAY Report ---
PROCEDURE: Chest 1 View X-Ray INDICATIONS: Chest pain TECHNIQUE: One view of the chest was acquired. COMPARISON: 03/08/2021 FINDINGS: Surgical changes and devices: None. Lungs and pleura: No pleural effusions or pneumothorax. Lungs are clear. Mediastinum: Mediastinal contours appear normal. Heart size is normal. Bones and chest wall: No suspicious bony lesions. Overlying soft tissues appear unremarkable. IMPRESSION: No acute cardiopulmonary process demonstrated radiographically. Reviewed by: Zak Moses MD on 03/22/2021 10:51 AM PDT Approved by: Zak Moses MD on 03/22/2021 10:51 AM PDT Station ID: [id number]
[2021-03-22 11:15] LABS: ALBUMIN 2.8 g/dL (3.2-5.5); ALBUMIN/GLOBULIN RATIO 0.8 (1.0-2.2); ALKALINE PHOSPHATASE 89 IU/L (42-121); ALT ALANINE AMINOTRANSFERASE 14 IU/L (10-60); AST ASPARTATE AMINOTRANSFERASE 24 IU/L (10-42); BILIRUBIN,TOTAL 0.6 mg/dL (0.2-1.0); BUN - BLOOD UREA NITROGEN 47 mg/dL (6-20); CALCIUM 8.2 mg/dL (8.5-10.3); CARBON DIOXIDE - CO2 18 mmol/L (21-32); CHLORIDE 103 mmol/L (101-111); CREATININE 3.6 mg/dL (0.4-1.0); CRP - C-REACTIVE PROTEIN < 1.0 mg/dL (0-1.0); GFR - MDRD 13 (>89); GLUCOSE 90 mg/dL (70-100); LIPASE 91 U/L (22-51); POTASSIUM 3.9 mmol/L (3.5-5.0); SODIUM 135 mmol/L (135-145); TOTAL PROTEIN 6.3 g/dL (6.7-8.2)
[2021-03-22 12:13] LABS: B. PARAPERTUSSIS- RESP PCR PAN NOT DETECTED; B. PERTUSSIS- RESP PCR PANEL NOT DETECTED; C. PNEUMONIAE- RESP PCR PANEL NOT DETECTED; CORONAVIRUS 229E-RESP PCR NOT DETECTED; CORONAVIRUS HKU1-RESP PCR NOT DETECTED; CORONAVIRUS NL63-RESP PCR NOT DETECTED; CORONAVIRUS OC43-RESP PCR NOT DETECTED; HUMAN METAPNEUMOVIRUS NOT DETECTED; INFLUENZA A- RESP PCR PANEL NOT DETECTED; INFLUENZA B - RESP PCR PANEL NOT DETECTED; M. PNEUMONIAE- RESP PCR PANEL NOT DETECTED; PARAINFLUENZA VIRUS 1 NOT DETECTED; PARAINFLUENZA VIRUS 2 NOT DETECTED; PARAINFLUENZA VIRUS 3 NOT DETECTED; PARAINFLUENZA VIRUS 4 NOT DETECTED; RHINOVIRUS/ENTEROVIRUS NOT DETECTED; RSV- RESP PCR PANEL NOT DETECTED; SARS-CoV-2 -RESP PCR PANEL NOT DETECTED
[2021-03-22 12:33] LABS: PT - PROTHROMBIN TIME 11.5 secs (9.9-12.6)
[2021-03-22 12:40] LABS: PARTIAL THROMBOPLASTIN TIME 13.4 secs (24.9-33.3)
[2021-03-22 15:27] LABS: CALCIUM 7.4 mg/dL (8.5-10.3); CREATININE 3.3 mg/dL (0.4-1.0)
[2021-03-22] MEDS ORDERED: ONDANSETRON ODT 4 MG TABLET TL PRN (16:57)
[2021-03-22] MEDS ORDERED: SODIUM CHLORIDE FLUSH 0.9% 10 ML SYRINGE IVP PRN (16:57)
[2021-03-22] MEDS ORDERED: ACETAMINOPHEN 325 MG TABLET PO PRN (16:57)
[2021-03-22] MEDS ORDERED: ONDANSETRON 4 MG/2 ML VIAL IVP PRN (16:57)
[2021-03-22 17:31] LABS: PHOSPHORUS 3.9 mg/dL (2.5-4.6)
--- NOTE | 2021-03-22 19:29 | HISTORY & PHYSICAL EXAMINATION ---
Chief Complaint - Chief Complaint Chief Complaint: Dizziness/Weakness/Diarrhea History of Present Illness - Admitted From Admitted From:: Emergency Department - History Obtained From Records Reviewed: [facility] History obtained from: Patient - History of Present Illness HPI Comment/Other: Jennifer Richter is a pleasant morbidly obese 60yo female with hx of atrial fib diagnosed 2 weeks ago, chronic R leg wound,DOUG,and hypothyroidism that presented to ED after passing out on toilet this morning.Of interest she was seen in ED for dizziness and confusion on the 03/08. She has had diarrhea and increasing weakness since starting keflex+Doxy for her chronic leg infection last week. Was switched to augmentin aprox 3 days ago which pt feels worsened diarrhea.She is Covid negative and C-Diff negative. In the ED labs were drawn and she was given fluids and ceftriaxone. Upon admin to floor she is answering questions appropriately and is well versed on her various medical conditions. She is still feeling weak and having diarrhea. She describes her diarrhea as non bloody. Other than the associated weakness and dizziness she has no other associated sy mptoms.Her main concern is that she wants this diarrhea to resolve so she can see her joint machine operator. She is also worried about her kidney function. She also desires pain medication and something to help her get some rest. History - Past Medical History Cardiovascular: reports: Hypertension, High cholesterol, Atrial fibrillation Respiratory: reports: None Endocrine/Autoimmune: reports: HyPOthyroidism : reports: None, Other (DOUG from chronic abx ) HEENT: reports: None Psych: reports: Depression Musculoskeletal: reports: Fatigue Derm: reports: None MRSA Hx?: No Other Past Medical History: Chronic RLE wound for 18+ years. Seen multiple specialists. Patient stated one doctor diagnosed it as "morphea.". Factor (7 or 8) deficiency - Past Surgical History Ortho: reports: Other (Unspecified knee surgery) /ROAD[employer]AY DES[employer]ER: reports: section, 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 - Family & Social History Living arrangement: At home Living Situation: With spouse/s.o. - Substance History Use: Uses substance without health or social issues: NONE Abuse: Recurrent use of substance despite neg consequences: NONE - POLST POLST Status: Full Code Meds/Allgy - Home Medications Home Medications: Ambulatory Orders Medication Instructions Recorded Confirmed Pregabalin [Lyrica] 150 mg PO BID 10/23/12 03/22/21 Amox/Clav 500/125 [Augmentin 1 tablet PO Q12H 03/20/21 03/22/21 500/125] Apixaban [Eliquis] 5 mg PO BID 03/20/21 03/22/21 Duloxetine HCl [Cymbalta] 60 mg PO DAILY 03/20/21 03/22/21 Metoprolol Succinate [Toprol Xl] 25 mg PO DAILY 03/20/21 03/22/21 oxyCODONE ER [OxyCONTIN] 10 mg PO BID 03/20/21 03/22/21 oxyCODONE [Roxicodone] 5 mg PO Q8HR PRN 03/20/21 03/22/21 Levothyroxine Sodium [Synthroid] 150 mcg PO QDAC 03/22/21 03/22/21 Loperamide [Imodium] 2 mg PO ONCE 03/22/21 03/22/21 Ondansetron HCl [Zofran] 4 mg ORAL QID PRN 03/22/21 03/22/21 Simvastatin [Zocor] 40 mg PO QPM 03/22/21 03/22/21 Telmisartan 40 mg PO QPM 03/22/21 03/22/21 - Allergies Allergies/Adverse Reactions: Allergies Allergy/AdvReac Type Severity Reaction Status Date / Time naproxen [From Naprosyn] Allergy Intermediate Edema Verified 03/22/21 09:22 piroxicam [From Feldene] Allergy Intermediate Rash Verified 03/22/21 09:22 prednisone Allergy Intermediate Edema Verified 03/22/21 09:22 codeine AdvReac Intermediate Emesis Verified 03/22/21 09:22 Review of Systems - Constitutional Constitutional: reports: Fatigue, Chills, Weakness (Progressively after diarrhea started) - Eyes Eyes: denies: Blurred vision, Vision loss - Cardiovascular Cariovascular: reports: Irregular heart rate, Palpitations (Does feel palpitations), Lightheadedness (Consistent since diarrhea), Syncope ("passed out" on toilet this morning. One time episode of syncope. Woke up dizzy and confused.). denies: Chest pain - Respiratory Respiratory: reports: SOB with exertion (Has trouble walking to bathroom without feeling SOB since diarrheal episodes started.). denies: Cough, SOB at rest, Pleuritic pain - Gastrointestinal Gastrointestinal: reports: Diarrhea (6-7 episodes today. Consistent since abx started. Non bloody. "regular looking diarrhea according to pt"), Nausea (occasional nausea with accompanied light headedness). denies: Abdominal pain, Abdominal distention, Constipation, Rectal bleeding, Bloody stools, Vomiting - Integumentary Integumentary: reports: Lesions (Significant right leg lesion.) - Neurological Neurological: reports: General weakness, Dizziness - Hematologic/Lymphatic Hematologic/Lymphatic: reports: Recurrent infections (Reoccurent leg infection) Prior Level of Functionality: Usually can complete daily tasks, feed herself. Has supportive boyfriend currently. Can ambulate fairly well with cane despite leg wound. However, over the past month her ambulation and independence has declined. Exam - Vital Signs Reviewed Vital Signs: Yes Vital Signs: Vital Signs x48h Temp Pulse Resp BP BP Pulse Ox 03/22/21 18:36 36.9 C 20 114/85 H 03/22/21 18:07 70 10 L 106/65 100 03/22/21 17:50 70 10 L 94/71 100 03/22/21 15:12 71 109/65 100 03/22/21 14:57 69 10 L 101/57 L 100 03/22/21 14:48 70 13 87/50 L 100 03/22/21 14:03 73 17 98/49 L 97 03/22/21 13:08 66 13 96/52 L 100 03/22/21 12:54 69 22 83/47 L 100 03/22/21 12:39 65 83/47 L 100 03/22/21 12:00 65 14 102/69 100 03/22/21 11:49 88 87/40 L 100 - Physical Exam General Appearance: positive: No acute distress (Well appearing, pleasant), Alert (Answers questions appropriately.) Eyes Bilateral: positive: PERRL, EOMI Neck: positive: No JVD, Trachea midline. negative: Lymphadenopathy (R), Lymphadenopathy (L) Respiratory: positive: Chest non-tender, No respiratory distress, Breath sounds nml Cardiovascular: positive: No murmur, No gallop, Irregularly irregular Peripheral Pulses: positive: 1+ Abdomen: positive: Non-tender, Nml bowel sounds Skin: positive: Warm, Dry, Other (Significant osteolytic lesion on right leg.) Extremities: positive: Non-tender Neurologic/Psychiatric: positive: Oriented x3, CN's nml (2-12), Motor nml, Sensation nml Conclusion/Plan - Problem List (1) Syncope and collapse Conclusion/Plan: The pt had a syncopal event this morning with associated dizziness and diarrhea which brought her into the ED. The patient has felt progressively weaker since the diarrhea started and has been consistently having up to 6-7 episodes a day after starting abx. In the ED before receiving fluids her lowest BP was 83/47. The patient likely suffered orthostatic hypotension due to dehydration from consistent diarrhea for the past week. She does have a recent cardiac history of A-fib which could have also caused her syncopal episode. She did experience a- fib with RVR here in the unit at 0030 for which she was given fluid bolus and digoxin. She does not have any other hx of syncopal events. She does not use drugs or alcohol. She does not have hx of HOCM or valvular disease that may have caused this. She is not having any other neurological symptoms that might suggest stroke or seizure disorder that may have caused this event either. Will continue to hydrate and monitor blood pressure while controlling the diarrhea and dehydration. See plan for dehydration and a fib. (2) Dehydration Conclusion/Plan: In the ED her Systolic BP dropped into 80s, had dizziness, and consistent diarrhea.This indicates a volume depletion. Additionally, her Bun and Cr are elevated which further indicates dehydration. This could also be due to her hx of DOUG from chronic ABX use for her leg wound. Her Cr and Bun were elevated at 47 and 3.6 respectfully. But have decreased to 43 and 3.3. However this is likely due to the stress from the consisten diarrhea and dehydration. The troponin was also elevated at 17.5 and 22.3 which is not surprising with the history DOUG. She is already feeling better with fluids and labs are trending in a positive direction. Will continue to give fluids and monitor BP. Recheck labs in the morning including a troponin. (3) Antibiotic-associated diarrhea Conclusion/Plan: This patient likely has an antibiotic associated diarrhea. She is C-diff negative, has non-bloody diarrhea, and no abdominal pain or associated fever with this condition. She does have an elevated WBC count at 11.9, but that is likely due to the infection in her leg and not due to this diarrhea.The timing of symptom onset with antibiotic implementation supports the idea this is likely associated with the medications.It was considered that her hypothyroidism could possibly be related to this, but usually hypothyroidism is associated with decreased motility, constipation, and cramping. Other GI pathologies were considered, but with no pain or other associated symptoms this is unlikely. After receiving fluids she is looking pretty good. She mentions she is feeling better. Will start antidiarrheals, give fluids, and find alternative treatment for her leg infection. Will reassess her in the morning. I expect her to continue to improve. (4) Chronic wound of extremity Conclusion/Plan: This woman has had a wound on her right leg for what she states is 18 years. She mentioned she has seen multiple specialists for this issue and has been on chronic abx therapy on and off for years. This problematic as it has probably caused her to have to be admitted for dehyrdation secondary to the medication induced diarrhea. An appropriate abx therapy regiment needs to be addressed by a wound care/infectious disease specialist. Will send note to primary care provider as to the current situation so that they can coordinate care. Will also consult pharmacist tomorrow AM for what abx therapy should be continued in the interim b etween now and a primary care/specialist visit. (5) Paroxysmal atrial fibrillation Conclusion/Plan: She was diagnosed with atrial fibrillation aprox two weeks ago. She was put on metoprolol for rate control. She is also anticoagulated on apixban which is a go od choice currently due to renal hx. She has not been taking the metoprolol the past couple days due to her "not feeling well." She wants to see her joint machine operator and has a current appointment sometime in April. Will not restart the metoprolol at this time due to volume status, but she can continue to take her apixban. Her a-fib does not need any further management at this time. (6) Hypertension Conclusion/Plan: She has hx of htn. She is currently taking telmisartan for her blood pressure.This was discontinued to her current hypotension and volume status. Will reevaluate when she is in a more stable state. Qualifiers: Hypertension type: unspecified Qualified Code(s): I10 - Essential (primary) hypertension (7) Diabetes Conclusion/Plan: Pt states she has diabetes.However, her glucose levels are sitting at 100 and she is not on any diabetic medication. No further evaluation for this condition is needed at this time. Qualifiers: Diabetes mellitus type: type 2 - Lab Results Fish Bones: 03/22/21 09:52 03/22/21 15:14 Other Lab Results: WBC 11.9 x10^3/uL (4.8-10.8) H 03/22/21 09:52 RBC 4.08 10^6/uL (4.20-5.40) L 03/22/21 09:52 Hgb 11.9 g/dL (12.0-16.0) L 03/22/21 09:52 Hct 38.6 % (37.0-47.0) 03/22/21 09:52 MCV 94.6 fL (81.0-99.0) 03/22/21 09:52 MCH 29.2 pg (27.0-31.0) 03/22/21 09:52 MCHC 30.8 g/dL (32.0-36.0) L 03/22/21 09:52 RDW 17.2 % (12.0-15.0) H 03/22/21 09:52 Plt Count 230 10^3/uL (130-450) 03/22/21 09:52 MPV 10.4 fL (7.9-10.8) 03/22/21 09:52 Neut # (Auto) 8.2 10^3/uL (1.5-6.6) H 03/22/21 09:52 Lymph # (Auto) 2.4 10^3/uL (1.5-3.5) 03/22/21 09:52 Harper # (Auto) 0.7 10^3/uL (0.0-1.0) 03/22/21 09:52 Eos # (Auto) 0.4 10^3/uL (0.0-0.7) 03/22/21 09:52 Baso # (Auto) 0.1 10^3/uL (0.0-0.1) 03/22/21 09:52 Absolute Nucleated RBC 0.00 x10^3/uL 03/22/21 09:52 Nucleated RBC % 0.0 /100WBC 03/22/21 09:52 PT 11.5 secs (9.9-12.6) 03/22/21 12:15 INR 1.0 (0.8-1.2) 03/22/21 12:15 APTT 13.4 secs (24.9-33.3) L 03/22/21 12:15 Sodium 136 mmol/L (135-145) 03/22/21 15:14 Potassium 4.0 mmol/L (3.5-5.0) 03/22/21 15:14 Chloride 106 mmol/L (101-111) 03/22/21 15:14 Carbon Dioxide 20 mmol/L (21-32) L 03/22/21 15:14 Anion Gap 10.0 (6-13) 03/22/21 15:14 BUN 43 mg/dL (6-20) H 03/22/21 15:14 Creatinine 3.3 mg/dL (0.4-1.0) H 03/22/21 15:14 Estimated GFR (MDRD) 14 (>89) L 03/22/21 15:14 Glucose 120 mg/dL (70-100) H 03/22/21 15:14 Lactic Acid 1.8 mmol/L (0.5-2.2) 03/22/21 12:20 Calcium 7.4 mg/dL (8.5-10.3) L 03/22/21 15:14 Phosphorus 3.9 mg/dL (2.5-4.6) 03/22/21 17:10 Magnesium 2.0 mg/dL (1.7-2.8) 03/22/21 17:10 Total Bilirubin 0.6 mg/dL (0.2-1.0) 03/22/21 10:45 AST 24 IU/L (10-42) 03/22/21 10:45 ALT 14 IU/L (10-60) 03/22/21 10:45 Alkaline Phosphatase 89 IU/L (42-121) 03/22/21 10:45 Troponin I High Sens 17.8 ng/L (2.3-14.8) H* 03/22/21 22:03 C-Reactive Protein < 1.0 mg/dL (0-1.0) 03/22/21 10:45 Total Protein 6.3 g/dL (6.7-8.2) L 03/22/21 10:45 Albumin 2.8 g/dL (3.2-5.5) L 03/22/21 10:45 Globulin 3.5 g/dL (2.1-4.2) 03/22/21 10:45 Albumin/Globulin Ratio 0.8 (1.0-2.2) L 03/22/21 10:45 Lipase 91 U/L (22-51) H 03/22/21 10:45 Urine Color YELLOW 03/23/21 00:50 Urine Clarity CLEAR (CLEAR) 03/23/21 00:50 Urine pH 5.0 PH (5.0-7.5) 03/23/21 00:50 Ur Specific [place] 1.015 (1.002-1.030) 03/23/21 00:50 Urine Protein NEGATIVE mg/dL (NEGATIVE) 03/23/21 00:50 Urine Glucose (UA) NEGATIVE mg/dL (NEGATIVE) 03/23/21 00:50 Urine Ketones NEGATIVE mg/dL (NEGATIVE) 03/23/21 00:50 Urine Occult Blood NEGATIVE (NEGATIVE) 03/23/21 00:50 Urine Nitrite NEGATIVE (NEGATIVE) 03/23/21 00:50 Urine Bilirubin NEGATIVE (NEGATIVE) 03/23/21 00:50 Urine Urobilinogen 0.2 (NORMAL) E.U./dL (NORMAL) 03/23/21 00:50 Ur Leukocyte Esterase NEGATIVE (NEGATIVE) 03/23/21 00:50 Ur Microscopic Review NOT INDICATED 03/23/21 00:50 Urine Culture Comments NOT INDICATED 03/23/21 00:50 Nasal Adenovirus (PCR) NOT DETECTED 03/22/21 10:55 Nasal B. parapertussis DNA (PCR) NOT DETECTED 03/22/21 10:55 Nasal Coronavir 229E PCR NOT DETECTED 03/22/21 10:55 Nasal Coronavir HKU1 PCR NOT DETECTED 03/22/21 10:55 Nasal Coronavir NL63 PCR NOT DETECTED 03/22/21 10:55 Nasal Coronavir OC43 PCR NOT DETECTED 03/22/21 10:55 Nasal Enterovir/Rhinovir PCR NOT DETECTED 03/22/21 10:55 Nasal Influenza B PCR NOT DETECTED 03/22/21 10:55 Nasal Influenza A PCR NOT DETECTED 03/22/21 10:55 Nasal Parainfluen 1 PCR NOT DETECTED 03/22/21 10:55 Nasal Parainfluen 2 PCR NOT DETECTED 03/22/21 10:55 Nasal Parainfluen 3 PCR NOT DETECTED 03/22/21 10:55 Nasal Parainfluen 4 PCR NOT DETECTED 03/22/21 10:55 Nasal RSV (PCR) NOT DETECTED 03/22/21 10:55 Nasal B.pertussis DNA PCR NOT DETECTED 03/22/21 10:55 Nasal C.pneumoniae (PCR) NOT DETECTED 03/22/21 10:55 David Human Metapneumo PCR NOT DETECTED 03/22/21 10:55 Nasal M.pneumoniae (PCR) NOT DETECTED 03/22/21 10:55 Nasal SARS-CoV-2 (PCR) NOT DETECTED 03/22/21 10:55 Stl C. diff Tox B Gene NEGATIVE (NEGATIVE) 03/22/21 10:00 - EKG Results EKG Interpreted Independently: Yes EKG Findings: Rate controlled a fib. Core Measures - Anticipated LOS I expect patient to be DC'd or transferred within 96 hours.: Yes - DVT/VTE - Prophylaxis VTE/DVT Device ordered at admit?: No VTE/DVT Prophylaxis med ordered at admit?: Yes
[2021-03-22] MEDS: LACTATED RINGERS 1,000 ML IV SCH (20:19)
[2021-03-22] MEDS ORDERED: ZOLPIDEM 5 MG TABLET PO PRN (20:40)
[2021-03-22] MEDS: DIPHENOX/ATROPINE 2.5/0.025 MG TABLET PO PRN ×2 (21:02→23:56)
[2021-03-22] MEDS: oxyCODONE 5 MG TABLET PO PRN (21:02)
[2021-03-23] MEDS ORDERED: DIGOXIN 500 MCG/2 ML AMP IVP STA (00:10)
[2021-03-23] MEDS ORDERED: LACTATED RINGERS 500 ML IV ONE (00:10)
[2021-03-23] MEDS: SODIUM CHLORIDE FLUSH 0.9% 10 ML SYRINGE IVP SCH ×4 (00:27→22:55)
[2021-03-23 01:04] LABS: BILIRUBIN,URINE NEGATIVE (NEGATIVE); GLUCOSE, URINE (UA) NEGATIVE (NEGATIVE); KETONES,URINE (UA) NEGATIVE (NEGATIVE); LEUKOCYTE ESTERASE, URINE NEGATIVE (NEGATIVE); NITRITE,URINE NEGATIVE (NEGATIVE); OCCULT BLOOD,URINE NEGATIVE (NEGATIVE); PROTEIN,URINE NEGATIVE (NEGATIVE); UROBILINOGEN,URINE 0.2 (NORMAL) E.U./dL (NORMAL)
[2021-03-23 01:06] LABS: CLARITY,URINE CLEAR (CLEAR)
[2021-03-23] MEDS: LACTATED RINGERS 1,000 ML IV SCH (01:36)
[2021-03-23] MEDS: LEVOTHYROXINE 75 MCG TABLET PO SCH (08:27)
[2021-03-23] MEDS: APIXABAN 5 MG TABLET PO SCH ×2 (08:27→22:21)
[2021-03-23] MEDS: SACCHAROMYCES BOULARDII 250 MG CAPSULE PO SCH ×2 (08:27→17:33)
[2021-03-23] MEDS: DULoxetine 30 MG CAPSULE PO SCH (08:28)
[2021-03-23] MEDS: oxyCODONE ER 10 MG TABLET PO SCH ×2 (08:28→22:28)
[2021-03-23] MEDS: METOPROLOL SUCCINATE 25 MG TABLET PO SCH (08:29)
[2021-03-23] MEDS ORDERED: PREGABALIN 25 MG CAPSULE PO SCH ×2 (09:00→15:03)
--- NOTE | 2021-03-23 11:11 | PROVIDER PROGRESS NOTE ---
Assessment/Plan - Problem List (1) Syncope and collapse Assessment/Plan: This is likely secondary to dehydration related to antibiotic associated diarrhea. Patient has been receiving IV hydration with lactated Ringer. She was given a bolus Normal saline today. Orthostatics were significantly positive. She became dizzy upon standing. IV hydration was continued with normal saline at 125 mL/h. 2D echocardiogram was done. Showed an ejection fraction of 60 to 65%. (2) Dehydration Assessment/Plan: Secondary to antibiotic associated diarrhea. Patient was given a bolus of normal saline today. Continue IV hydration with normal saline at 125 mL/h. Patient has good urine output. (3) DOUG (acute kidney injury) Assessment/Plan: Likely pre-renal. Secondary to dehydration related to diarrhea. Initial creatinine was 3.6. Creatinine has improved to 2.2 With estimated GFR of 23. Anticipating further improvement Continue IV hydration with normal saline at 125 mL/h. (5) Chronic wound of extremity Assessment/Plan: Has had the problem for about 18 years. She has been on chronic antibiotic therapy intermittently for years. She is to follow-up with infectious disease specialist. She will would call and reschedule her missed appointment. She is to follow-up with wound care as well. (6) Paroxysmal atrial fibrillation Assessment/Plan: Diagnosed with atrial fibrillation 2 weeks ago. She is on metoprolol succinate 25mg po daily Eliquis as well 2D echocardiogram done 03/23/21 showed an ejection fraction of 60 to 65%. (7) Hypotension Qualifiers: Hypotension type: unspecified hypotension type Qualified Code(s): I95.9 - Hypotension, unspecified Assessment/Plan: Please secondary to dehydration. Patient receiving IV hydration with normal saline at 125 mL/h. Patient's orthostatic vitals were positive. Midodrine 5 mg 3 times daily ordered. We will check patient's a.m. cortisol level. (8) Diabetes Qualifiers: Diabetes mellitus type: type 2 Assessment/Plan: Will monitor blood glucose with meals. (9) Hypothyroidism Assessment/Plan: On Synthroid 150 mcg p.o. daily. (10) Elevated troponin Assessment/Plan: Possibly due to tachycardia with Atrial fibrillation. Troponin trend: 22.3->17.8->14.9 2D echo showed preserved ejection fraction at 60 to 65% Patient does not have chest pain or dyspnea. - Current Meds Current Meds: Current Medications Generic Name Dose Route Start Last Admin Trade Name Freq PRN Reason Stop Dose Admin Apixaban 5 mg 03/23/21 09:00 03/23/21 08:27 Apixaban 5 Mg Tablet PO 5 mg BID JOSEPH Administration Diphenoxylate HCl/Atropine 1 tab 03/22/21 20:39 03/22/21 23:56 Diphenox/Atropine 2.5/0.025 Mg Tablet PO 1 tab QID PRN Administration Diarrhea Duloxetine HCl 60 mg 03/23/21 09:00 03/23/21 08:28 Duloxetine 30 Mg Capsule PO 60 mg DAILY JOSEPH Administration Lactated Ringer's 1,000 mls @ 100 mls/hr 03/22/21 19:00 03/23/21 01:36 Lr IV 03/23/21 14:59 100 mls/hr .Q10H JOSEPH Administration Levothyroxine Sodium 150 mcg 03/23/21 07:00 03/23/21 08:27 Levothyroxine 75 Mcg Tablet PO 150 mcg QDAC JOSEPH Administration Metoprolol Succinate 25 mg 03/23/21 09:00 03/23/21 08:29 Metoprolol Succinate 25 Mg Tablet PO Not Given DAILY JOSEPH Oxycodone HCl 5 mg 03/22/21 20:39 03/22/21 21:02 Oxycodone 5 Mg Tablet PO 5 mg Q8H PRN Administration PAIN Oxycodone HCl 10 mg 03/23/21 09:00 03/23/21 08:28 Oxycodone Er 10 Mg Tablet PO 10 mg BID JOSEPH Administration Pregabalin 150 mg 03/23/21 09:00 03/23/21 08:28 Pregabalin 25 Mg Capsule PO 150 mg BID JOSEPH Administration Saccharomyces Boulardii 250 mg 03/23/21 08:00 03/23/21 08:27 Saccharomyces Boulardii 250 Mg Capsule PO 250 mg BIDWM JOSEPH Administration Sodium Chloride 10 ml 03/23/21 01:00 03/23/21 08:31 Sodium Chloride Flush 0.9% 10 Ml Syringe IVP 10 ml 0100,0900,1700 JOSEPH Administration - Lab Result Fish Bone Diagrams: 03/22/21 09:52 03/23/21 12:31 Subjective - Subjective Patient Reports: Other (Resting comfortably in bed at time of exam. She had significantly positive orthostatics vitals. She was very dizzy with standing. She converted to sinus rhythm last night but then converted to atrial fibrillation again this morning. Denies any other complaint) Objective Vital Signs: Vital Signs - 24 hr 03/22/21 03/22/21 03/22/21 11:17 11:49 12:00 Temperature Heart Rate 69 88 65 Heart Rate [ Brachial] Respiratory 11 L 14 Rate Blood Pressure 85/50 L 87/40 L 102/69 Blood Pressure [Right Brachial artery] O2 Saturation 100 100 100 03/22/21 03/22/21 03/22/21 12:39 12:54 13:08 Temperature Heart Rate 65 69 66 Heart Rate [ Brachial] Respiratory 22 13 Rate Blood Pressure 83/47 L 83/47 L 96/52 L Blood Pressure [Right Brachial artery] O2 Saturation 100 100 100 03/22/21 03/22/21 03/22/21 14:03 14:48 14:57 Temperature Heart Rate 73 70 69 Heart Rate [ Brachial] Respiratory 17 13 10 L Rate Blood Pressure 98/49 L 87/50 L 101/57 L Blood Pressure [Right Brachial artery] O2 Saturation 97 100 100 03/22/21 03/22/21 03/22/21 15:12 17:50 18:07 Temperature Heart Rate 71 70 70 Heart Rate [ Brachial] Respiratory 10 L 10 L Rate Blood Pressure 109/65 94/71 106/65 Blood Pressure [Right Brachial artery] O2 Saturation 100 100 100 03/22/21 03/22/21 03/23/21 18:36 23:59 00:04 Temperature 36.9 C 36.6 C Heart Rate Heart Rate [ 158 H 166 H Brachial] Respiratory 20 16 Rate Blood Pressure Blood Pressure 114/85 H 107/54 L 86/63 L [Right Brachial artery] O2 Saturation 03/23/21 03/23/21 03/23/21 00:12 00:26 00:41 Temperature Heart Rate 158 H Heart Rate [ 75 Brachial] Respiratory Rate Blood Pressure Blood Pressure 114/35 L [Right Brachial artery] O2 Saturation 99 03/23/21 03/23/21 05:00 07:55 Temperature 36.8 C 36.7 C Heart Rate Heart Rate [ 82 79 Brachial] Respiratory 20 18 Rate Blood Pressure Blood Pressure 112/64 91/52 L [Right Brachial artery] O2 Saturation 95 99 Oxygen O2 Source Room air I&O (Last 24 Hrs): Intake and Output Totals x24h 03/21/21 03/22/21 03/23/21 23:59 23:59 23:59 Intake Total 5300 1000 Balance 5300 1000 General: Alert, Oriented x3, No acute distress HEENT: PERRLA, EOMI Neck: Supple, No JVD Neuro: Alert, Non Focal, Oriented Times 3 Cardiovascular: Other (Irregularly irregular heart rhythm) Respiratory: Chest non-tender, No respiratory distress, Breath sounds nml Abdomen: Normal bowel sounds, Soft, No tenderness, No masses Extremities: No edema, Other (Extensive veruccous ulcer/wound in right lower extremity) Comments/Notes: Significant ulcer/wound on right lower extremity - Results Results: Laboratory Results WBC 11.9 x10^3/uL (4.8-10.8) H 03/22/21 09:52 RBC 4.08 10^6/uL (4.20-5.40) L 03/22/21 09:52 Hgb 11.9 g/dL (12.0-16.0) L 03/22/21 09:52 Hct 38.6 % (37.0-47.0) 03/22/21 09:52 MCV 94.6 fL (81.0-99.0) 03/22/21 09:52 MCH 29.2 pg (27.0-31.0) 03/22/21 09:52 MCHC 30.8 g/dL (32.0-36.0) L 03/22/21 09:52 RDW 17.2 % (12.0-15.0) H 03/22/21 09:52 Plt Count 230 10^3/uL (130-450) 03/22/21 09:52 MPV 10.4 fL (7.9-10.8) 03/22/21 09:52 Neut # (Auto) 8.2 10^3/uL (1.5-6.6) H 03/22/21 09:52 Lymph # (Auto) 2.4 10^3/uL (1.5-3.5) 03/22/21 09:52 [place] # (Auto) 0.7 10^3/uL (0.0-1.0) 03/22/21 09:52 Eos # (Auto) 0.4 10^3/uL (0.0-0.7) 03/22/21 09:52 Baso # (Auto) 0.1 10^3/uL (0.0-0.1) 03/22/21 09:52 Absolute Nucleated RBC 0.00 x10^3/uL 03/22/21 09:52 Nucleated RBC % 0.0 /100WBC 03/22/21 09:52 PT 11.5 secs (9.9-12.6) 03/22/21 12:15 INR 1.0 (0.8-1.2) 03/22/21 12:15 APTT 13.4 secs (24.9-33.3) L 03/22/21 12:15 Sodium 136 mmol/L (135-145) 03/22/21 15:14 Potassium 4.0 mmol/L (3.5-5.0) 03/22/21 15:14 Chloride 106 mmol/L (101-111) 03/22/21 15:14 Carbon Dioxide 20 mmol/L (21-32) L 03/22/21 15:14 Anion Gap 10.0 (6-13) 03/22/21 15:14 BUN 43 mg/dL (6-20) H 03/22/21 15:14 Creatinine 3.3 mg/dL (0.4-1.0) H 03/22/21 15:14 Estimated GFR (MDRD) 14 (>89) L 03/22/21 15:14 Glucose 120 mg/dL (70-100) H 03/22/21 15:14 Lactic Acid 1.8 mmol/L (0.5-2.2) 03/22/21 12:20 Calcium 7.4 mg/dL (8.5-10.3) L 03/22/21 15:14 Phosphorus 3.9 mg/dL (2.5-4.6) 03/22/21 17:10 Magnesium 2.0 mg/dL (1.7-2.8) 03/22/21 17:10 Total Bilirubin 0.6 mg/dL (0.2-1.0) 03/22/21 10:45 AST 24 IU/L (10-42) 03/22/21 10:45 ALT 14 IU/L (10-60) 03/22/21 10:45 Alkaline Phosphatase 89 IU/L (42-121) 03/22/21 10:45 Troponin I High Sens 17.8 ng/L (2.3-14.8) H* 03/22/21 22:03 C-Reactive Protein < 1.0 mg/dL (0-1.0) 03/22/21 10:45 Total Protein 6.3 g/dL (6.7-8.2) L 03/22/21 10:45 Albumin 2.8 g/dL (3.2-5.5) L 03/22/21 10:45 Globulin 3.5 g/dL (2.1-4.2) 03/22/21 10:45 Albumin/Globulin Ratio 0.8 (1.0-2.2) L 03/22/21 10:45 Lipase 91 U/L (22-51) H 03/22/21 10:45 Urine Color YELLOW 03/23/21 00:50 Urine Clarity CLEAR (CLEAR) 03/23/21 00:50 Urine pH 5.0 PH (5.0-7.5) 03/23/21 00:50 Ur Specific [place] 1.015 (1.002-1.030) 03/23/21 00:50 Urine Protein NEGATIVE mg/dL (NEGATIVE) 03/23/21 00:50 Urine Glucose (UA) NEGATIVE mg/dL (NEGATIVE) 03/23/21 00:50 Urine Ketones NEGATIVE mg/dL (NEGATIVE) 03/23/21 00:50 Urine Occult Blood NEGATIVE (NEGATIVE) 03/23/21 00:50 Urine Nitrite NEGATIVE (NEGATIVE) 03/23/21 00:50 Urine Bilirubin NEGATIVE (NEGATIVE) 03/23/21 00:50 Urine Urobilinogen 0.2 (NORMAL) E.U./dL (NORMAL) 03/23/21 00:50 Ur Leukocyte Esterase NEGATIVE (NEGATIVE) 03/23/21 00:50 Ur Microscopic Review NOT INDICATED 03/23/21 00:50 Urine Culture Comments NOT INDICATED 03/23/21 00:50 Nasal Adenovirus (PCR) NOT DETECTED 03/22/21 10:55 Nasal B. parapertussis DNA (PCR) NOT DETECTED 03/22/21 10:55 Nasal Coronavir 229E PCR NOT DETECTED 03/22/21 10:55 Nasal Coronavir HKU1 PCR NOT DETECTED 03/22/21 10:55 Nasal Coronavir NL63 PCR NOT DETECTED 03/22/21 10:55 Nasal Coronavir OC43 PCR NOT DETECTED 03/22/21 10:55 Nasal Enterovir/Rhinovir PCR NOT DETECTED 03/22/21 10:55 Nasal Influenza B PCR NOT DETECTED 03/22/21 10:55 Nasal Influenza A PCR NOT DETECTED 03/22/21 10:55 Nasal Parainfluen 1 PCR NOT DETECTED 03/22/21 10:55 Nasal Parainfluen 2 PCR NOT DETECTED 03/22/21 10:55 Nasal Parainfluen 3 PCR NOT DETECTED 03/22/21 10:55 Nasal Parainfluen 4 PCR NOT DETECTED 03/22/21 10:55 Nasal RSV (PCR) NOT DETECTED 03/22/21 10:55 Nasal B.pertussis DNA PCR NOT DETECTED 03/22/21 10:55 Nasal C.pneumoniae (PCR) NOT DETECTED 03/22/21 10:55 David Human Metapneumo PCR NOT DETECTED 03/22/21 10:55 Nasal M.pneumoniae (PCR) NOT DETECTED 03/22/21 10:55 Nasal SARS-CoV-2 (PCR) NOT DETECTED 03/22/21 10:55 Stl C. diff Tox B Gene NEGATIVE (NEGATIVE) 03/22/21 10:00 ABX Reporting Has patient been on IV antibiotics over the past 48 hours?: No
[2021-03-23] MEDS ORDERED: SODIUM CHLORIDE 0.9% 1,000 ML IV ONE (11:32)
[2021-03-23 13:11] LABS: CALCIUM 8.1 mg/dL (8.5-10.3); CREATININE 2.2 mg/dL (0.4-1.0); PHOSPHORUS 2.7 mg/dL (2.5-4.6); POTASSIUM 3.9 mmol/L (3.5-5.0)
[2021-03-23] MEDS: MULTIVITAMIN W/MINERALS TABLET PO SCH (13:21)
[2021-03-23] MEDS: ZINC SULFATE 220 MG CAPSULE PO SCH (13:21)
[2021-03-23] MEDS: MIDODRINE 2.5 MG TABLET PO SCH ×2 (17:33→22:37)
[2021-03-23] MEDS: SODIUM CHLORIDE 0.9% 1,000 ML IV SCH (17:34)
[2021-03-23] MEDS: PREGABALIN 100 MG CAPSULE PO SCH (22:21)
[2021-03-23] MEDS: PREGABALIN 25 MG CAPSULE PO SCH (22:22)
[2021-03-23] MEDS: ATORVASTATIN 10 MG TABLET PO SCH (22:22)
[2021-03-24] MEDS: SODIUM CHLORIDE 0.9% 1,000 ML IV SCH ×3 (01:07→22:16)
[2021-03-24] MEDS: oxyCODONE 5 MG TABLET PO PRN (04:28)
[2021-03-24] MEDS: MIDODRINE 2.5 MG TABLET PO SCH ×3 (05:51→22:20)
[2021-03-24] MEDS: LEVOTHYROXINE 75 MCG TABLET PO SCH (06:23)
--- NOTE | 2021-03-24 07:59 | PROVIDER PROGRESS NOTE ---
Assessment/Plan - Problem List (1) Syncope and collapse Assessment/Plan: This is likely secondary to dehydration related to antibiotic associated diarrhea. Patient has been receiving IV hydration with lactated Ringer. Orthostatics were still significantly positive. She became dizzy upon standing. IV hydration was continued with normal saline at 125 mL/h. 2D echocardiogram was done. Showed an ejection fraction of 60 to 65%. (2) Dehydration Assessment/Plan: Secondary to antibiotic associated diarrhea. Continue IV hydration with normal saline at 125 mL/h. Patient has good urine output. (3) DOUG (acute kidney injury) Assessment/Plan: Likely pre-renal. Secondary to dehydration related to diarrhea. Initial creatinine was 3.6. Creatinine has improved to 1.6 With estimated GFR of 33. Anticipating further improvement Continue IV hydration with normal saline at 125 mL/h. (4) Antibiotic-associated diarrhea Assessment/Plan: Test for C. difficile was negative. Patient is currently not on antibiotics Diarrhea has improved. (5) Chronic wound of extremity Assessment/Plan: Has had the problem for about 18 years. She has been on chronic antibiotic therapy intermittently for years. She is to follow-up with infectious disease specialist. She will would call and reschedule her missed appointment. She is to follow-up with wound care as well. (6) Paroxysmal atrial fibrillation Assessment/Plan: Diagnosed with atrial fibrillation 2 weeks ago. She is on metoprolol succinate 25mg po daily Eliquis as well 2D echocardiogram done 03/23/21 showed an ejection fraction of 60 to 65%. (7) Hypotension Qualifiers: Hypotension type: unspecified hypotension type Qualified Code(s): I95.9 - Hypotension, unspecified Assessment/Plan: Please secondary to dehydration. Patient receiving IV hydration with normal saline at 125 mL/h. Patient's orthostatic vitals were positive. Midodrine 5 mg 3 times daily ordered. A.m. cortisol level was low at 3.9 Stress dose hydrocortisone succinate at 100 mg IV 3 times daily for 6 doses was initiated (8) Diabetes Qualifiers: Diabetes mellitus type: type 2 Assessment/Plan: Will monitor blood glucose with meals. Patient may need sliding scale insulin given initiation of steroids. (9) Hypothyroidism Assessment/Plan: On Synthroid 150 mcg p.o. daily. (10) Elevated troponin Assessment/Plan: Possibly due to tachycardia with Atrial fibrillation. Troponin trend: 22.3->17.8->14.9 2D echo showed preserved ejection fraction at 60 to 65% Patient does not have chest pain or dyspnea. - Current Meds Current Meds: Current Medications Generic Name Dose Route Start Last Admin Trade Name Freq PRN Reason Stop Dose Admin Apixaban 5 mg 03/23/21 09:00 03/23/21 22:21 Apixaban 5 Mg Tablet PO 5 mg BID JOSEPH Administration Atorvastatin Calcium 20 mg 03/23/21 21:00 03/23/21 22:22 Atorvastatin 10 Mg Tablet PO 20 mg QPM JOSEPH Administration Diphenoxylate HCl/Atropine 1 tab 03/22/21 20:39 03/22/21 23:56 Diphenox/Atropine 2.5/0.025 Mg Tablet PO 1 tab QID PRN Administration Diarrhea Duloxetine HCl 60 mg 03/23/21 09:00 03/23/21 08:28 Duloxetine 30 Mg Capsule PO 60 mg DAILY JOSEPH Administration Sodium Chloride 1,000 mls @ 125 mls/hr 03/23/21 17:00 03/24/21 01:07 Normal Saline 0.9% IV 125 mls/hr .Q8H JOSEPH Administration Levothyroxine Sodium 150 mcg 03/23/21 07:00 03/24/21 06:23 Levothyroxine 75 Mcg Tablet PO 150 mcg QDAC JOSEPH Administration Metoprolol Succinate 25 mg 03/23/21 09:00 03/23/21 08:29 Metoprolol Succinate 25 Mg Tablet PO Not Given DAILY JOSEPH Midodrine 5 mg 03/23/21 17:00 03/24/21 05:51 Midodrine 2.5 Mg Tablet PO 5 mg TID JOSEPH Administration Multivitamins/Minerals 1 tab 03/23/21 13:00 03/23/21 13:21 Multivitamin W/Minerals Tablet PO 1 tab DAILYWM JOSEPH Administration Oxycodone HCl 5 mg 03/22/21 20:39 03/24/21 04:28 Oxycodone 5 Mg Tablet PO 5 mg Q8H PRN Administration PAIN Oxycodone HCl 10 mg 03/23/21 09:00 03/23/21 22:28 Oxycodone Er 10 Mg Tablet PO 10 mg BID JOSEPH Administration Pregabalin 100 mg 03/23/21 21:00 03/23/21 22:21 Pregabalin 100 Mg Capsule PO 100 mg BID JOSEPH Administration Pregabalin 50 mg 03/23/21 15:05 03/23/21 22:22 Pregabalin 25 Mg Capsule PO 50 mg BID JOSEPH Administration Saccharomyces Boulardii 250 mg 03/23/21 08:00 03/23/21 17:33 Saccharomyces Boulardii 250 Mg Capsule PO 250 mg BIDWM JOSEPH Administration Sodium Chloride 10 ml 03/23/21 01:00 03/23/21 22:55 Sodium Chloride Flush 0.9% 10 Ml Syringe IVP Not Given 0100,0900,1700 JOSEPH Zinc Sulfate 220 mg 03/23/21 13:00 03/23/21 13:21 Zinc Sulfate 220 Mg Capsule PO 03/29/21 13:00 220 mg DAILY JOSEPH Administration Zolpidem Tartrate 5 mg 03/22/21 20:40 03/23/21 23:44 Zolpidem 5 Mg Tablet PO 5 mg QPM PRN Administration Insomnia - Lab Result Fish Bone Diagrams: 03/24/21 08:11 03/24/21 08:11 - Additional Planning My Orders: My Active Orders 03/23/21 11:31 Echo Transthoracic w/Definity [ECHO] Routine 03/23/21 13:00 Multivitamin W/Minerals [Theragran M] 1 tab PO DAILYWM Zinc Sulfate 220 mg PO DAILY 03/23/21 17:00 Midodrine [ProAmatine] 5 mg PO TID Sodium Chloride 0.9% [Normal Saline 0.9%] 1,000 ml IV 125 mls/hr 03/24/21 05:00 CORTISOL,AM [IAI] DAILYLAB Subjective - Subjective Patient Reports: Other (Patient reported feeling better this morning. She was able to ambulate to the bathroom without dizziness. However orthostatic vital check was positive and she complained of dizziness. She denied any other complaints. 8 AM cortisol was low.) Objective Vital Signs: Vital Signs - 24 hr 03/23/21 03/23/21 03/23/21 11:41 16:32 19:46 Temperature 36.5 C 36.9 C 36.8 C Heart Rate [ 74 73 87 Brachial] Respiratory 18 18 22 Rate Blood Pressure [Left Radial artery] Blood Pressure 88/51 L 86/50 L 139/56 H [Right Brachial artery] O2 Saturation 96 100 98 03/23/21 03/24/21 03/24/21 22:50 04:19 05:53 Temperature 36.4 C L 36.6 C Heart Rate [ 92 95 Brachial] Respiratory 22 18 18 Rate Blood Pressure 87/44 L [Left Radial artery] Blood Pressure 102/53 L 132/72 H [Right Brachial artery] O2 Saturation 97 99 Oxygen O2 Source Room air I&O (Last 24 Hrs): Intake and Output Totals x24h 03/22/21 03/23/21 03/24/21 23:59 23:59 23:59 Intake Total 5300 3600 1443.75 Balance 5300 3600 1443.75 General: Alert, Oriented x3, No acute distress HEENT: PERRLA, EOMI Neck: Supple, No JVD Neuro: Alert, Non Focal, Oriented Times 3 Cardiovascular: Other (irregularly irregular rhythm) Respiratory: Chest non-tender, No respiratory distress, Breath sounds nml Abdomen: Normal bowel sounds, Soft, No tenderness Extremities: Other (Extensive veruccous ulcer/wound in right lower extremity) - Results Results: Laboratory Results WBC 11.9 x10^3/uL (4.8-10.8) H 03/22/21 09:52 RBC 4.08 10^6/uL (4.20-5.40) L 03/22/21 09:52 Hgb 11.9 g/dL (12.0-16.0) L 03/22/21 09:52 Hct 38.6 % (37.0-47.0) 03/22/21 09:52 MCV 94.6 fL (81.0-99.0) 03/22/21 09:52 MCH 29.2 pg (27.0-31.0) 03/22/21 09:52 MCHC 30.8 g/dL (32.0-36.0) L 03/22/21 09:52 RDW 17.2 % (12.0-15.0) H 03/22/21 09:52 Plt Count 230 10^3/uL (130-450) 03/22/21 09:52 MPV 10.4 fL (7.9-10.8) 03/22/21 09:52 Neut # (Auto) 8.2 10^3/uL (1.5-6.6) H 03/22/21 09:52 Lymph # (Auto) 2.4 10^3/uL (1.5-3.5) 03/22/21 09:52 [place] # (Auto) 0.7 10^3/uL (0.0-1.0) 03/22/21 09:52 Eos # (Auto) 0.4 10^3/uL (0.0-0.7) 03/22/21 09:52 Baso # (Auto) 0.1 10^3/uL (0.0-0.1) 03/22/21 09:52 Absolute Nucleated RBC 0.00 x10^3/uL 03/22/21 09:52 Nucleated RBC % 0.0 /100WBC 03/22/21 09:52 PT 11.5 secs (9.9-12.6) 03/22/21 12:15 INR 1.0 (0.8-1.2) 03/22/21 12:15 APTT 13.4 secs (24.9-33.3) L 03/22/21 12:15 Sodium 141 mmol/L (135-145) 03/23/21 12:31 Potassium 3.9 mmol/L (3.5-5.0) 03/23/21 12:31 Chloride 112 mmol/L (101-111) H 03/23/21 12:31 Carbon Dioxide 20 mmol/L (21-32) L 03/23/21 12:31 Anion Gap 9.0 (6-13) 03/23/21 12:31 BUN 27 mg/dL (6-20) H 03/23/21 12:31 Creatinine 2.2 mg/dL (0.4-1.0) H 03/23/21 12:31 Estimated GFR (MDRD) 23 (>89) L 03/23/21 12:31 Glucose 113 mg/dL (70-100) H 03/23/21 12:31 Lactic Acid 1.8 mmol/L (0.5-2.2) 03/22/21 12:20 Calcium 8.1 mg/dL (8.5-10.3) L 03/23/21 12:31 Phosphorus 2.7 mg/dL (2.5-4.6) 03/23/21 12:31 Magnesium 2.0 mg/dL (1.7-2.8) 03/23/21 12:31 Total Bilirubin 0.6 mg/dL (0.2-1.0) 03/22/21 10:45 AST 24 IU/L (10-42) 03/22/21 10:45 ALT 14 IU/L (10-60) 03/22/21 10:45 Alkaline Phosphatase 89 IU/L (42-121) 03/22/21 10:45 Troponin I High Sens 14.9 ng/L (2.3-14.8) H* 03/23/21 12:31 C-Reactive Protein < 1.0 mg/dL (0-1.0) 03/22/21 10:45 Total Protein 6.3 g/dL (6.7-8.2) L 03/22/21 10:45 Albumin 2.8 g/dL (3.2-5.5) L 03/22/21 10:45 Globulin 3.5 g/dL (2.1-4.2) 03/22/21 10:45 Albumin/Globulin Ratio 0.8 (1.0-2.2) L 03/22/21 10:45 Lipase 91 U/L (22-51) H 03/22/21 10:45 Urine Color YELLOW 03/23/21 00:50 Urine Clarity CLEAR (CLEAR) 03/23/21 00:50 Urine pH 5.0 PH (5.0-7.5) 03/23/21 00:50 Ur Specific [place] 1.015 (1.002-1.030) 03/23/21 00:50 Urine Protein NEGATIVE mg/dL (NEGATIVE) 03/23/21 00:50 Urine Glucose (UA) NEGATIVE mg/dL (NEGATIVE) 03/23/21 00:50 Urine Ketones NEGATIVE mg/dL (NEGATIVE) 03/23/21 00:50 Urine Occult Blood NEGATIVE (NEGATIVE) 03/23/21 00:50 Urine Nitrite NEGATIVE (NEGATIVE) 03/23/21 00:50 Urine Bilirubin NEGATIVE (NEGATIVE) 03/23/21 00:50 Urine Urobilinogen 0.2 (NORMAL) E.U./dL (NORMAL) 03/23/21 00:50 Ur Leukocyte Esterase NEGATIVE (NEGATIVE) 03/23/21 00:50 Ur Microscopic Review NOT INDICATED 03/23/21 00:50 Urine Culture Comments NOT INDICATED 03/23/21 00:50 Nasal Adenovirus (PCR) NOT DETECTED 03/22/21 10:55 Nasal B. parapertussis DNA (PCR) NOT DETECTED 03/22/21 10:55 Nasal Coronavir 229E PCR NOT DETECTED 03/22/21 10:55 Nasal Coronavir HKU1 PCR NOT DETECTED 03/22/21 10:55 Nasal Coronavir NL63 PCR NOT DETECTED 03/22/21 10:55 Nasal Coronavir OC43 PCR NOT DETECTED 03/22/21 10:55 Nasal Enterovir/Rhinovir PCR NOT DETECTED 03/22/21 10:55 Nasal Influenza B PCR NOT DETECTED 03/22/21 10:55 Nasal Influenza A PCR NOT DETECTED 03/22/21 10:55 Nasal Parainfluen 1 PCR NOT DETECTED 03/22/21 10:55 Nasal Parainfluen 2 PCR NOT DETECTED 03/22/21 10:55 Nasal Parainfluen 3 PCR NOT DETECTED 03/22/21 10:55 Nasal Parainfluen 4 PCR NOT DETECTED 03/22/21 10:55 Nasal RSV (PCR) NOT DETECTED 03/22/21 10:55 Nasal B.pertussis DNA PCR NOT DETECTED 03/22/21 10:55 Nasal C.pneumoniae (PCR) NOT DETECTED 03/22/21 10:55 David Human Metapneumo PCR NOT DETECTED 03/22/21 10:55 Nasal M.pneumoniae (PCR) NOT DETECTED 03/22/21 10:55 Nasal SARS-CoV-2 (PCR) NOT DETECTED 03/22/21 10:55 Stl C. diff Tox B Gene NEGATIVE (NEGATIVE) 03/22/21 10:00 ABX Reporting Has patient been on IV antibiotics over the past 48 hours?: No
[2021-03-24 08:33] LABS: BASOPHILS # (AUTO) 0.1 10^3/uL (0.0-0.1); BASOPHILS % (AUTO) 0.6 %; EOSINOPHILS # (AUTO) 0.6 10^3/uL (0.0-0.7); EOSINOPHILS % (AUTO) 7.1 %; HCT - HEMATOCRIT 26.5 % (37.0-47.0); HGB - HEMOGLOBIN 7.8 g/dL (12.0-16.0); LYMPHOCYTES # (AUTO) 2.9 10^3/uL (1.5-3.5); LYMPHOCYTES % (AUTO) 37.6 %; MEAN CORPUSCULAR HEMOGLOBIN 28.5 pg (27.0-31.0); MEAN CORPUSCULAR HGB CONC 29.4 g/dL (32.0-36.0); MEAN CORPUSCULAR VOLUME 96.7 fL (81.0-99.0); MEAN PLATELET VOLUME 10.3 fL (7.9-10.8); MONOCYTES # (AUTO) 0.7 10^3/uL (0.0-1.0); MONOCYTES % (AUTO) 9.4 %; NEUTROPHILS # (AUTO) 3.5 10^3/uL (1.5-6.6); NEUTROPHILS % (AUTO) 44.9 %; PLT - PLATELET COUNT 131 10^3/uL (130-450); RED BLOOD COUNT 2.74 10^6/uL (4.20-5.40); RED CELL DISTRIBUTION WIDTH 17.5 % (12.0-15.0); WHITE BLOOD COUNT 7.7 x10^3/uL (4.8-10.8)
[2021-03-24 08:51] LABS: CALCIUM 7.6 mg/dL (8.5-10.3); CREATININE 1.6 mg/dL (0.4-1.0); MAGNESIUM 1.8 mg/dL (1.7-2.8); PHOSPHORUS 2.8 mg/dL (2.5-4.6); POTASSIUM 3.6 mmol/L (3.5-5.0)
[2021-03-24] MEDS: oxyCODONE ER 10 MG TABLET PO SCH ×2 (09:45→22:19)
[2021-03-24] MEDS: MULTIVITAMIN W/MINERALS TABLET PO SCH (09:45)
[2021-03-24] MEDS: SACCHAROMYCES BOULARDII 250 MG CAPSULE PO SCH ×2 (09:45→18:40)
[2021-03-24] MEDS: APIXABAN 5 MG TABLET PO SCH ×2 (09:45→22:20)
[2021-03-24] MEDS: SODIUM CHLORIDE FLUSH 0.9% 10 ML SYRINGE IVP SCH ×3 (09:46→22:23)
[2021-03-24] MEDS: ZINC SULFATE 220 MG CAPSULE PO SCH (09:46)
[2021-03-24] MEDS: DULoxetine 30 MG CAPSULE PO SCH (09:46)
[2021-03-24] MEDS: PREGABALIN 25 MG CAPSULE PO SCH ×2 (09:46→22:23)
[2021-03-24] MEDS: PREGABALIN 100 MG CAPSULE PO SCH ×2 (09:46→22:21)
[2021-03-24] MEDS ORDERED: HYDROCORTISONE SUCCINATE 100 MG/2 ML VIAL IVP ONE (12:00)
[2021-03-24] MEDS: METOPROLOL SUCCINATE 25 MG TABLET PO SCH (12:16)
[2021-03-24] MEDS: HYDROCORTISONE SUCCINATE 100 MG/2 ML VIAL IVP SCH (22:17)
[2021-03-24] MEDS: ATORVASTATIN 10 MG TABLET PO SCH (22:20)
--- NOTE | 2021-03-25 01:17 | PROVIDER PROGRESS NOTE ---
Ornament Stapler Note - Ornament Stapler Note Ornament Stapler Note: March 25, 2021 1:16 AM Patient had a seizure today and Keppra was added since Lamictal was at the highest dose possible. Later in the evening the patient requested a sleep aid and was given Ambien. Call light went off in the room and the nurse went to go help the patient on the toilet. The patient had gotten up without assist, was sitting on the toilet but the floor and the patient were covered in feces. Blood on the patient's arm where she had ripped off the IV. A couple of hours later the nurse was reassessing the patient in the IV when the nurse noted that there was a bruise in the right forehead. Patient then shared with the nurse at that point in time that when she was in the bathroom early in the evening she had fallen and hit her head. It was unwitnessed. She is 36.6, pulse 67, blood pressure 126/60, 97% on room air. Alert, oriented. No focal deficits. Due to unwitnessed report of head trauma, will obtain head CT
[2021-03-25 05:22] LABS: BASOPHILS % (AUTO) 0.2 %; HCT - HEMATOCRIT 30.3 % (37.0-47.0); LYMPHOCYTES # (AUTO) 1.2 10^3/uL (1.5-3.5); LYMPHOCYTES % (AUTO) 18.7 %; MEAN CORPUSCULAR HGB CONC 29.7 g/dL (32.0-36.0); MEAN CORPUSCULAR VOLUME 97.7 fL (81.0-99.0); MEAN PLATELET VOLUME 10.7 fL (7.9-10.8); MONOCYTES # (AUTO) 0.2 10^3/uL (0.0-1.0); MONOCYTES % (AUTO) 3.3 %; NEUTROPHILS # (AUTO) 4.8 10^3/uL (1.5-6.6); NEUTROPHILS % (AUTO) 76.2 %; PLT - PLATELET COUNT 154 10^3/uL (130-450); RED CELL DISTRIBUTION WIDTH 17.1 % (12.0-15.0); WHITE BLOOD COUNT 6.3 x10^3/uL (4.8-10.8)
[2021-03-25 05:34] LABS: CREATININE 1.5 mg/dL (0.4-1.0); MAGNESIUM 1.7 mg/dL (1.7-2.8); PHOSPHORUS 2.8 mg/dL (2.5-4.6); POTASSIUM 3.6 mmol/L (3.5-5.0)
[2021-03-25] MEDS: HYDROCORTISONE SUCCINATE 100 MG/2 ML VIAL IVP SCH (05:54)
[2021-03-25] MEDS: SODIUM CHLORIDE 0.9% 1,000 ML IV SCH ×2 (05:56→12:20)
[2021-03-25] MEDS: LEVOTHYROXINE 75 MCG TABLET PO SCH (05:56)
[2021-03-25] MEDS: MIDODRINE 2.5 MG TABLET PO SCH ×2 (05:56→14:00)
[2021-03-25] MEDS: SACCHAROMYCES BOULARDII 250 MG CAPSULE PO SCH (09:00)
[2021-03-25] MEDS: PREGABALIN 25 MG CAPSULE PO SCH (09:00)
[2021-03-25] MEDS: oxyCODONE ER 10 MG TABLET PO SCH (09:00)
[2021-03-25] MEDS: PREGABALIN 100 MG CAPSULE PO SCH (09:00)
[2021-03-25] MEDS: ZINC SULFATE 220 MG CAPSULE PO SCH (09:00)
[2021-03-25] MEDS: APIXABAN 5 MG TABLET PO SCH (09:01)
[2021-03-25] MEDS: SODIUM CHLORIDE FLUSH 0.9% 10 ML SYRINGE IVP SCH (09:01)
[2021-03-25] MEDS: MULTIVITAMIN W/MINERALS TABLET PO SCH (09:01)
[2021-03-25] MEDS: DULoxetine 30 MG CAPSULE PO SCH (09:01)
[2021-03-25] MEDS: METOPROLOL SUCCINATE 25 MG TABLET PO SCH (09:08)
[2021-03-25 12:37] VITALS: BP 150/85
--- NOTE | 2021-03-25 13:18 | DISCHARGE SUMMARY ---
Discharge Summary Admit Date: 03/22/21 Discharge Date: 03/25/21 Discharging Provider: Rosalino Ochoa Primary Care Provider: Rosie Franklin Code Status: Attempt Resuscitation Condition at Discharge: Stable Discharge Disposition: 01 Home, Self Care - DIAGNOSES Admission Diagnoses: Syncope and collapse Dehydration Antibiotic associated diarrhea Chronic wound of extremity Paroxysmal atrial fibrillation Hypertension Diabetes Discharge Diagnoses with Status of Each Condition: Syncope and collapse: Acute. Secondary to dehydration. Improved/resolved Dehydration: Acute. 2/2 Diarrhea. Improved/Resolved Antibiotic associated diarrhea: Improved Chronic wound of extremity: To follow up with Infectious Disease Paroxysmal atrial fibrillation: Chronic. Stable Hypertension: Chronic. Stable Diabetes: Chronic. Stable - HPI History of Present Illness: Jennifer Richter is a pleasant morbidly obese 60yo female with hx of atrial fib diagnosed 2 weeks ago, chronic R leg wound,DOUG,and hypothyroidism that presented to ED after passing out on toilet this morning.Of interest she was seen in ED for dizziness and confusion on the 03/08. She has had diarrhea and increasing weakness since starting keflex+Doxy for her chronic leg infection last week. Was switched to augmentin aprox 3 days ago which pt feels worsened diarrhea.She is Covid negative and C-Diff negative. In the ED labs were drawn and she was given fluids and ceftriaxone. Upon admin to floor she is answering questions appropriately and is well versed on her various medical conditions. She is still feeling weak and having diarrhea. She describes her diarrhea as non bloody. 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 She is also worried about her kidney function. She also desires pain medication and something to help her get some rest. - HOSPITAL COURSE Hospital Course: She was adequately hydrated during her hospital stay with normal saline. Her 8 AM cortisol level was noted to be low so she was placed on hydrocortisone 100 mg 3 times daily IV for a total of 6 doses. She also received midodrine 5 mg p.o. 3 times daily throughout her hospital stay. Upon discharge midodrine was prescribed 3 times daily for 7 days. She was instructed to follow-up with her primary care physician for review about possible continuation beyond 7 days. Patient dizziness improved significantly with hydration. By the time of discharge her systolic blood pressure was 126. She was advised to stand up slowly when doing so. She was advised to always use a walker to get around. She is to follow-up with infectious diseases regarding the chronic wound on her right lower extremity If she is to continue antibiotics she has been advised to also take a probiotic. She was tested for C. difficile and was negative. She was recently diagnosed with atrial fibrillation for which she is on metoprolol which was resumed at time of discharge. She had a 2D echocardiogram done during this hospital stay which showed an ejection fraction of 60 to 65%. It was largely unremarkable study. And resources to enable her to get bariatric bed. At presentation her creatinine was 3.6 with estimated GFR of 13. By the day of discharge her creatinine was 1.5 with an estimated GFR of 35. Her lactic acid on admission was 4.4. This improved with IV hydration to 1.8. Was discharged home in stable condition. - ALLERGIES Allergies/Adverse Reactions: Allergies Allergy/AdvReac Type Severity Reaction Status Date / Time naproxen [From Naprosyn] Allergy Intermediate Edema Verified 03/22/21 09:22 piroxicam [From Feldene] Allergy Intermediate Rash Verified 03/22/21 09:22 prednisone Allergy Intermediate Edema Verified 03/22/21 09:22 codeine AdvReac Intermediate Emesis Verified 03/22/21 09:22 - MEDICATIONS Home Medications: Ambulatory Orders Medication Instructions Recorded Confirmed Pregabalin [Lyrica] 150 mg PO BID 10/23/12 03/22/21 Amox/Clav 500/125 [Augmentin 1 tablet PO Q12H 03/20/21 03/22/21 500/125] Apixaban [Eliquis] 5 mg PO BID 03/20/21 03/22/21 Duloxetine HCl [Cymbalta] 60 mg PO DAILY 03/20/21 03/22/21 Metoprolol Succinate [Toprol Xl] 25 mg PO DAILY 03/20/21 03/22/21 oxyCODONE ER [OxyCONTIN] 10 mg PO BID 03/20/21 03/22/21 oxyCODONE [Roxicodone] 5 mg PO Q8HR PRN 03/20/21 03/22/21 Levothyroxine Sodium [Synthroid] 150 mcg PO QDAC 03/22/21 03/22/21 Loperamide [Imodium] 2 mg PO ONCE 03/22/21 03/22/21 Ondansetron HCl [Zofran] 4 mg ORAL QID PRN 03/22/21 03/22/21 Simvastatin [Zocor] 40 mg PO QPM 03/22/21 03/22/21 Telmisartan 40 mg PO QPM 03/22/21 03/22/21 Midodrine HCl 5 mg PO TID 7 Days #21 tablet 03/25/21 - PHYSICAL EXAM AT DISCHARGE General Appearance: positive: No acute distress, Alert Eyes Bilateral: positive: PERRL, EOMI Neck: positive: Nml inspection, No JVD, Trachea midline Respiratory: positive: Chest non-tender, No respiratory distress. negative: Wheezes, Rales, Rhonchi Cardiovascular: positive: No murmur, Irregularly irregular Abdomen: positive: Non-tender, No organomegaly, Nml bowel sounds, No distention. negative: Guarding, Rebound Skin: positive: Color nml, No rash, Warm, Dry Extremities: positive: Non-tender, No pedal edema, Other (Extensive veruccous ulcer/wound in right lower extremity) Neurologic/Psychiatric: positive: Oriented x3, Mood/affect nml - LABS Result Diagrams: 03/25/21 05:10 03/25/21 05:10 - TIME SPENT Time Spent in Discharge (Minutes): 25
--- NOTE | 2021-03-25 13:24 | Discharge Plan ---
Discharge Plan Problem Reviewed?: Yes Disposition: Home, Self Care Condition: Stable Diet: Cardiac Activity Restrictions: Activity as Tolerated Assistance Devices: Walker Health Concerns: You were admitted after a syncopal episode at home on 03/22/21. This was due to significant dehydration as a result of antibiotic induced diarrhea. You had positive orthostatics in the ED. Your creatinine was noted at 3.6 You were admitted and treated with IV hydration throughout the course of your hospital stay. Midodrine was also ordered and after checking your cortisol and noting that there was no you were placed on hydrocortisone. Your blood pressure improved significantly to the cause of your hospital stay. Your renal function improved such that by the time of discharge her creatinine was 1.5. You had good urine output. By the day of discharge lowest blood pressure was 126/68 while standing. You are being discharged in fairly stable condition. You have been advised to use a walker to get around. You have been advised to stand slowly. Exercise caution when getting around. You are to follow-up with infectious disease regarding the wound on your right lower extremity. Should they decide to continue antibiotics, you have been encouraged to use a probiotic. You may follow-up with your primary care physician as needed. No Smoking: If you smoke, Please STOP! Call for help. Follow-up with: Rosie Franklin MD [Primary Care Provider] -
== END 2021-03-25 14:15 | disposition home or self-care (01) | DRG 394 ==
LOC: EDUNIT# → ED 09:06 → MS3 16:57
PROVIDERS: ADMIT Specialist; ATTEND Internal Medicine
DX: K52.1 Toxic gastroenteritis and colitis (principal); T36.95XA Adverse effect of unspecified systemic antibiotic, initial encounter; N17.9 Acute kidney failure, unspecified; R53.1 Weakness; Z68.41 Body mass index [BMI] 40.0-44.9, adult; I95.9 Hypotension, unspecified; Z16.11 Resistance to penicillins; T36.8X5A Adverse effect of other systemic antibiotics, initial encounter; Y92.009 Unspecified place in unspecified non-institutional (private) residence as the place of occurrence of the external cause; S81.801A Unspecified open wound, right lower leg, initial encounter; E86.0 Dehydration; R55 Syncope and collapse; Z20.822 Contact with and (suspected) exposure to COVID-19; I48.0 Paroxysmal atrial fibrillation; I10 Essential (primary) hypertension; E66.01 Morbid (severe) obesity due to excess calories; E11.9 Type 2 diabetes mellitus without complications; S81.801D Unspecified open wound, right lower leg, subsequent encounter; B96.20 Unspecified Escherichia coli [E. coli] as the cause of diseases classified elsewhere; I95.1 Orthostatic hypotension; E03.9 Hypothyroidism, unspecified; E78.00 Pure hypercholesterolemia, unspecified; T44.7X6A Underdosing of beta-adrenoreceptor antagonists, initial encounter; Z91.128 Patient's intentional underdosing of medication regimen for other reason; R77.8 Other specified abnormalities of plasma proteins
CPT/HCPCS: 36415; 71045; 80048; 80053; 81003; 81599; 82533; 83605; 83690; 83735; 84100; 84484; 85025; 85610; 85730; 86140; 87040; 87493; 87631; 93005; 96361; 96365; 99285; A9270; C8929; J7120; 0202U; 81001; 87045; 87046; 87086; 93306

== ENCOUNTER 2021-05-21 15:28 | Outpatient (CLI) | payer MEDICARE, OTHER ==
[2021-05-21 15:42] LABS: BASOPHILS # (AUTO) 0.1 10^3/uL (0.0-0.1); BASOPHILS % (AUTO) 0.7 %; EOSINOPHILS # (AUTO) 0.5 10^3/uL (0.0-0.7); EOSINOPHILS % (AUTO) 6.1 %; HCT - HEMATOCRIT 31.3 % (37.0-47.0); HGB - HEMOGLOBIN 9.6 g/dL (12.0-16.0); LYMPHOCYTES # (AUTO) 1.8 10^3/uL (1.5-3.5); LYMPHOCYTES % (AUTO) 24.3 %; MEAN CORPUSCULAR HEMOGLOBIN 28.2 pg (27.0-31.0); MEAN CORPUSCULAR HGB CONC 30.7 g/dL (32.0-36.0); MEAN CORPUSCULAR VOLUME 92.1 fL (81.0-99.0); MONOCYTES # (AUTO) 0.7 10^3/uL (0.0-1.0); MONOCYTES % (AUTO) 9.9 %; NEUTROPHILS # (AUTO) 4.4 10^3/uL (1.5-6.6); NEUTROPHILS % (AUTO) 58.7 %; PLT - PLATELET COUNT 194 10^3/uL (130-450); RED CELL DISTRIBUTION WIDTH 16.7 % (12.0-15.0); WHITE BLOOD COUNT 7.5 x10^3/uL (4.8-10.8)
[2021-05-21 16:01] LABS: ALBUMIN 2.5 g/dL (3.2-5.5); ALBUMIN/GLOBULIN RATIO 0.8 (1.0-2.2); ALKALINE PHOSPHATASE 66 IU/L (42-121); ALT ALANINE AMINOTRANSFERASE 13 IU/L (10-60); AST ASPARTATE AMINOTRANSFERASE 26 IU/L (10-42); BILIRUBIN,TOTAL 0.5 mg/dL (0.2-1.0); BUN - BLOOD UREA NITROGEN 14 mg/dL (6-20); CALCIUM 8.3 mg/dL (8.5-10.3); CARBON DIOXIDE - CO2 25 mmol/L (21-32); CHLORIDE 102 mmol/L (101-111); GFR - MDRD 56 (>89); GLUCOSE 157 mg/dL (70-100); POTASSIUM 3.8 mmol/L (3.5-5.0); SODIUM 136 mmol/L (135-145); TOTAL PROTEIN 5.7 g/dL (6.7-8.2)
[2021-05-21 16:28] LABS: CRP - C-REACTIVE PROTEIN < 1.0 mg/dL (0-1.0)
== END 2021-05-21 15:29 | disposition home or self-care (01) ==
LOC: LAB.R 15:28
PROVIDERS: ATTEND Internal Medicine Infectious Disease
DX: M86.8X6 Other osteomyelitis, lower leg (principal)
CPT/HCPCS: 80053; 85025; 85651; 86140

== ENCOUNTER 2021-05-30 08:00 | Outpatient (CLI) | payer MEDICARE, OTHER ==
[2021-05-30 18:27] LABS: BASOPHILS % (AUTO) 0.7 %; EOSINOPHILS # (AUTO) 0.5 10^3/uL (0.0-0.7); HCT - HEMATOCRIT 29.1 % (37.0-47.0); HGB - HEMOGLOBIN 8.7 g/dL (12.0-16.0); LYMPHOCYTES # (AUTO) 1.2 10^3/uL (1.5-3.5); LYMPHOCYTES % (AUTO) 20.9 %; MEAN CORPUSCULAR HGB CONC 29.9 g/dL (32.0-36.0); MEAN CORPUSCULAR VOLUME 93.6 fL (81.0-99.0); MEAN PLATELET VOLUME 11.8 fL (7.9-10.8); MONOCYTES # (AUTO) 0.5 10^3/uL (0.0-1.0); MONOCYTES % (AUTO) 8.7 %; NEUTROPHILS # (AUTO) 3.4 10^3/uL (1.5-6.6); NEUTROPHILS % (AUTO) 60.3 %; PLT - PLATELET COUNT 191 10^3/uL (130-450); RED BLOOD COUNT 3.11 10^6/uL (4.20-5.40); RED CELL DISTRIBUTION WIDTH 17.2 % (12.0-15.0); WHITE BLOOD COUNT 5.6 x10^3/uL (4.8-10.8)
[2021-05-30 18:52] LABS: ALBUMIN 2.3 g/dL (3.2-5.5); ALBUMIN/GLOBULIN RATIO 0.8 (1.0-2.2); ALKALINE PHOSPHATASE 59 IU/L (42-121); ALT ALANINE AMINOTRANSFERASE < 10 IU/L (10-60); AST ASPARTATE AMINOTRANSFERASE 17 IU/L (10-42); BILIRUBIN,TOTAL 0.3 mg/dL (0.2-1.0); BUN - BLOOD UREA NITROGEN 10 mg/dL (6-20); CALCIUM 8.3 mg/dL (8.5-10.3); CARBON DIOXIDE - CO2 28 mmol/L (21-32); CHLORIDE 100 mmol/L (101-111); CREATININE 0.9 mg/dL (0.4-1.0); GFR - MDRD 64 (>89); GLUCOSE 171 mg/dL (70-100); POTASSIUM 4.5 mmol/L (3.5-5.0); SODIUM 135 mmol/L (135-145); TOTAL PROTEIN 5.3 g/dL (6.7-8.2)
[2021-05-30 19:41] LABS: CRP - C-REACTIVE PROTEIN < 1.0 mg/dL (0-1.0)
== END 2021-05-30 23:59 ==
LOC: LAB.N 08:00
PROVIDERS: ATTEND Internal Medicine Infectious Disease
DX: M86.8X5 Other osteomyelitis, thigh (principal); M86.8X8 Other osteomyelitis, other site
CPT/HCPCS: 36415; 80053; 85025; 85651; 86140

== ENCOUNTER 2021-06-04 08:00 | Outpatient (CLI) | payer MEDICARE, OTHER ==
[2021-06-04 19:44] LABS: BASOPHILS % (AUTO) 0.7 %; EOSINOPHILS # (AUTO) 0.5 10^3/uL (0.0-0.7); EOSINOPHILS % (AUTO) 8.2 %; HCT - HEMATOCRIT 37.1 % (37.0-47.0); LYMPHOCYTES # (AUTO) 1.5 10^3/uL (1.5-3.5); LYMPHOCYTES % (AUTO) 26.3 %; MEAN CORPUSCULAR HEMOGLOBIN 27.8 pg (27.0-31.0); MEAN CORPUSCULAR HGB CONC 29.6 g/dL (32.0-36.0); MEAN CORPUSCULAR VOLUME 93.9 fL (81.0-99.0); MEAN PLATELET VOLUME 10.8 fL (7.9-10.8); MONOCYTES # (AUTO) 0.7 10^3/uL (0.0-1.0); MONOCYTES % (AUTO) 12.1 %; NEUTROPHILS # (AUTO) 3.1 10^3/uL (1.5-6.6); NEUTROPHILS % (AUTO) 52.4 %; PLT - PLATELET COUNT 203 10^3/uL (130-450); RED BLOOD COUNT 3.95 10^6/uL (4.20-5.40); RED CELL DISTRIBUTION WIDTH 17.4 % (12.0-15.0); WHITE BLOOD COUNT 5.9 x10^3/uL (4.8-10.8)
== END 2021-06-04 23:59 ==
LOC: LAB 08:00
PROVIDERS: ATTEND Internal Medicine Infectious Disease
DX: M86.8X8 Other osteomyelitis, other site (principal)
CPT/HCPCS: 36415; 80053; 85025; 85651; 86140

== ENCOUNTER 2021-06-07 17:20 | Outpatient (CLI) | payer MEDICARE, OTHER ==
[2021-06-07 18:23] LABS: BASOPHILS # (AUTO) 0.1 10^3/uL (0.0-0.1); EOSINOPHILS # (AUTO) 0.4 10^3/uL (0.0-0.7); EOSINOPHILS % (AUTO) 5.6 %; HCT - HEMATOCRIT 33.4 % (37.0-47.0); HGB - HEMOGLOBIN 10.2 g/dL (12.0-16.0); LYMPHOCYTES # (AUTO) 1.6 10^3/uL (1.5-3.5); LYMPHOCYTES % (AUTO) 23.1 %; MEAN CORPUSCULAR HEMOGLOBIN 28.3 pg (27.0-31.0); MEAN CORPUSCULAR HGB CONC 30.5 g/dL (32.0-36.0); MEAN CORPUSCULAR VOLUME 92.8 fL (81.0-99.0); MEAN PLATELET VOLUME 10.3 fL (7.9-10.8); MONOCYTES # (AUTO) 0.6 10^3/uL (0.0-1.0); MONOCYTES % (AUTO) 9.3 %; NEUTROPHILS # (AUTO) 4.1 10^3/uL (1.5-6.6); NEUTROPHILS % (AUTO) 60.6 %; PLT - PLATELET COUNT 227 10^3/uL (130-450); RED CELL DISTRIBUTION WIDTH 16.9 % (12.0-15.0); WHITE BLOOD COUNT 6.8 x10^3/uL (4.8-10.8)
[2021-06-07 19:18] LABS: ALBUMIN/GLOBULIN RATIO 0.9 (1.0-2.2); ALKALINE PHOSPHATASE 67 IU/L (42-121); ALT ALANINE AMINOTRANSFERASE 11 IU/L (10-60); AST ASPARTATE AMINOTRANSFERASE 19 IU/L (10-42); BILIRUBIN,TOTAL 0.6 mg/dL (0.2-1.0); BUN - BLOOD UREA NITROGEN 13 mg/dL (6-20); CALCIUM 8.7 mg/dL (8.5-10.3); CARBON DIOXIDE - CO2 27 mmol/L (21-32); CHLORIDE 97 mmol/L (101-111); CREATININE 0.8 mg/dL (0.4-1.0); GFR - MDRD 73 (>89); GLUCOSE 147 mg/dL (70-100); POTASSIUM 4.5 mmol/L (3.5-5.0); SODIUM 134 mmol/L (135-145); TOTAL PROTEIN 6.2 g/dL (6.7-8.2)
[2021-06-07 19:19] LABS: CRP - C-REACTIVE PROTEIN < 1.0 mg/dL (0-1.0)
== END 2021-06-07 23:59 | disposition home or self-care (01) ==
LOC: LAB.R 17:20
PROVIDERS: ATTEND Internal Medicine Infectious Disease
DX: M86.8X8 Other osteomyelitis, other site (principal)
CPT/HCPCS: 80053; 85025; 85651; 86140

== ENCOUNTER 2021-06-11 08:00 | Outpatient (CLI) | payer MEDICARE, OTHER ==
[2021-06-11 17:52] LABS: BASOPHILS # (AUTO) 0.1 10^3/uL (0.0-0.1); BASOPHILS % (AUTO) 0.9 %; EOSINOPHILS # (AUTO) 0.4 10^3/uL (0.0-0.7); EOSINOPHILS % (AUTO) 5.9 %; HCT - HEMATOCRIT 33.5 % (37.0-47.0); HGB - HEMOGLOBIN 9.8 g/dL (12.0-16.0); LYMPHOCYTES # (AUTO) 2.1 10^3/uL (1.5-3.5); LYMPHOCYTES % (AUTO) 29.7 %; MEAN CORPUSCULAR HEMOGLOBIN 28.2 pg (27.0-31.0); MEAN CORPUSCULAR HGB CONC 29.3 g/dL (32.0-36.0); MEAN CORPUSCULAR VOLUME 96.3 fL (81.0-99.0); MEAN PLATELET VOLUME 10.3 fL (7.9-10.8); MONOCYTES % (AUTO) 14.2 %; NEUTROPHILS # (AUTO) 3.4 10^3/uL (1.5-6.6); NEUTROPHILS % (AUTO) 49.2 %; PLT - PLATELET COUNT 210 10^3/uL (130-450); RED BLOOD COUNT 3.48 10^6/uL (4.20-5.40); RED CELL DISTRIBUTION WIDTH 17.7 % (12.0-15.0); WHITE BLOOD COUNT 6.9 x10^3/uL (4.8-10.8)
[2021-06-11 18:10] LABS: ALBUMIN 2.9 g/dL (3.2-5.5); ALBUMIN/GLOBULIN RATIO 0.9 (1.0-2.2); BILIRUBIN,TOTAL 0.6 mg/dL (0.2-1.0); CALCIUM 8.7 mg/dL (8.5-10.3); CRP - C-REACTIVE PROTEIN 1.3 mg/dL (0-1.0)
[2021-06-11 18:30] LABS: FERRITIN 17.7 ng/mL (11.0-306.8)
[2021-06-11 18:34] LABS: FOLATE 14.6 ng/mL (5.90 - >24.8)
== END 2021-06-11 23:59 ==
LOC: LAB.R 08:00
PROVIDERS: ATTEND Internal Medicine
DX: M86.8X8 Other osteomyelitis, other site (principal)
CPT/HCPCS: 80053; 82607; 82728; 82746; 83540; 84466; 85025; 85651; 86140

== ENCOUNTER 2021-06-18 14:24 | Outpatient (CLI) | payer MEDICARE, OTHER ==
[2021-06-18 14:32] LABS: BASOPHILS % (AUTO) 0.6 %; EOSINOPHILS # (AUTO) 0.4 10^3/uL (0.0-0.7); HCT - HEMATOCRIT 33.3 % (37.0-47.0); HGB - HEMOGLOBIN 9.8 g/dL (12.0-16.0); LYMPHOCYTES # (AUTO) 1.1 10^3/uL (1.5-3.5); LYMPHOCYTES % (AUTO) 22.9 %; MEAN CORPUSCULAR HEMOGLOBIN 28.3 pg (27.0-31.0); MEAN CORPUSCULAR HGB CONC 29.4 g/dL (32.0-36.0); MEAN CORPUSCULAR VOLUME 96.2 fL (81.0-99.0); MEAN PLATELET VOLUME 11.4 fL (7.9-10.8); MONOCYTES # (AUTO) 0.6 10^3/uL (0.0-1.0); MONOCYTES % (AUTO) 11.6 %; NEUTROPHILS # (AUTO) 2.9 10^3/uL (1.5-6.6); NEUTROPHILS % (AUTO) 57.7 %; PLT - PLATELET COUNT 140 10^3/uL (130-450); RED BLOOD COUNT 3.46 10^6/uL (4.20-5.40); RED CELL DISTRIBUTION WIDTH 18.5 % (12.0-15.0)
[2021-06-18 14:49] LABS: ALBUMIN 2.6 g/dL (3.2-5.5); ALBUMIN/GLOBULIN RATIO 0.9 (1.0-2.2); ALKALINE PHOSPHATASE 71 IU/L (42-121); ALT ALANINE AMINOTRANSFERASE 13 IU/L (10-60); AST ASPARTATE AMINOTRANSFERASE 22 IU/L (10-42); BILIRUBIN,TOTAL 0.6 mg/dL (0.2-1.0); BUN - BLOOD UREA NITROGEN 12 mg/dL (6-20); CALCIUM 8.8 mg/dL (8.5-10.3); CARBON DIOXIDE - CO2 30 mmol/L (21-32); CHLORIDE 99 mmol/L (101-111); CREATININE 0.8 mg/dL (0.4-1.0); GFR - MDRD 73 (>89); GLUCOSE 185 mg/dL (70-100); POTASSIUM 4.2 mmol/L (3.5-5.0); SODIUM 137 mmol/L (135-145); TOTAL PROTEIN 5.6 g/dL (6.7-8.2)
[2021-06-18 14:53] LABS: CRP - C-REACTIVE PROTEIN < 1.0 mg/dL (0-1.0)
== END 2021-06-18 14:25 | disposition home or self-care (01) ==
LOC: LAB.R 14:24
PROVIDERS: ATTEND Internal Medicine Infectious Disease
DX: M86.8X8 Other osteomyelitis, other site (principal)
CPT/HCPCS: 80053; 85025; 85651; 86140

== ENCOUNTER 2021-06-25 08:00 | Outpatient (CLI) | payer MEDICARE, OTHER ==
[2021-06-25 21:14] LABS: BASOPHILS % (AUTO) 0.8 %; EOSINOPHILS # (AUTO) 0.1 10^3/uL (0.0-0.7); EOSINOPHILS % (AUTO) 1.9 %; HCT - HEMATOCRIT 31.8 % (37.0-47.0); HGB - HEMOGLOBIN 9.7 g/dL (12.0-16.0); LYMPHOCYTES # (AUTO) 1.3 10^3/uL (1.5-3.5); LYMPHOCYTES % (AUTO) 26.6 %; MEAN CORPUSCULAR HGB CONC 30.5 g/dL (32.0-36.0); MEAN CORPUSCULAR VOLUME 95.2 fL (81.0-99.0); MEAN PLATELET VOLUME 11.6 fL (7.9-10.8); MONOCYTES # (AUTO) 0.6 10^3/uL (0.0-1.0); NEUTROPHILS # (AUTO) 2.8 10^3/uL (1.5-6.6); NEUTROPHILS % (AUTO) 58.7 %; PLT - PLATELET COUNT 141 10^3/uL (130-450); RED BLOOD COUNT 3.34 10^6/uL (4.20-5.40); RED CELL DISTRIBUTION WIDTH 17.6 % (12.0-15.0); WHITE BLOOD COUNT 4.8 x10^3/uL (4.8-10.8)
[2021-06-25 21:32] LABS: ALBUMIN 2.6 g/dL (3.2-5.5); ALKALINE PHOSPHATASE 83 IU/L (42-121); ALT ALANINE AMINOTRANSFERASE 15 IU/L (10-60); AST ASPARTATE AMINOTRANSFERASE 22 IU/L (10-42); BILIRUBIN,TOTAL 0.5 mg/dL (0.2-1.0); BUN - BLOOD UREA NITROGEN 15 mg/dL (6-20); CALCIUM 8.6 mg/dL (8.5-10.3); CARBON DIOXIDE - CO2 29 mmol/L (21-32); CHLORIDE 100 mmol/L (101-111); CREATININE 0.9 mg/dL (0.4-1.0); GFR - MDRD 64 (>89); GLUCOSE 124 mg/dL (70-100); POTASSIUM 4.2 mmol/L (3.5-5.0); SODIUM 138 mmol/L (135-145); TOTAL PROTEIN 5.3 g/dL (6.7-8.2)
[2021-06-25 22:06] LABS: CRP - C-REACTIVE PROTEIN < 1.0 mg/dL (0-1.0)
== END 2021-06-25 23:59 ==
LOC: LAB.R 08:00
DX: M86.8X8 Other osteomyelitis, other site (principal)
CPT/HCPCS: 80053; 85025; 85651; 86140

== ENCOUNTER 2021-07-02 08:00 | Outpatient (CLI) | payer MEDICARE, OTHER ==
[2021-07-02 20:19] LABS: BASOPHILS % (AUTO) 0.4 %; EOSINOPHILS % (AUTO) 0.4 %; HCT - HEMATOCRIT 32.3 % (37.0-47.0); HGB - HEMOGLOBIN 9.4 g/dL (12.0-16.0); LYMPHOCYTES # (AUTO) 1.3 10^3/uL (1.5-3.5); LYMPHOCYTES % (AUTO) 25.6 %; MEAN CORPUSCULAR HEMOGLOBIN 27.8 pg (27.0-31.0); MEAN CORPUSCULAR HGB CONC 29.1 g/dL (32.0-36.0); MEAN CORPUSCULAR VOLUME 95.6 fL (81.0-99.0); MONOCYTES # (AUTO) 0.7 10^3/uL (0.0-1.0); NEUTROPHILS # (AUTO) 2.9 10^3/uL (1.5-6.6); NEUTROPHILS % (AUTO) 59.4 %; PLT - PLATELET COUNT 176 10^3/uL (130-450); RED BLOOD COUNT 3.38 10^6/uL (4.20-5.40); RED CELL DISTRIBUTION WIDTH 16.6 % (12.0-15.0); WHITE BLOOD COUNT 4.9 x10^3/uL (4.8-10.8)
== END 2021-07-02 23:59 ==
LOC: LAB.R 08:00
PROVIDERS: ATTEND Internal Medicine Infectious Disease
DX: M86.8X8 Other osteomyelitis, other site (principal)
CPT/HCPCS: 80053; 85025; 85651; 86140

== ENCOUNTER 2021-07-20 08:54 | Outpatient (CLI) | payer MEDICARE, OTHER | END 2021-07-20 08:55 | disposition home or self-care (01) | LOC: DI 08:54 | PROVIDERS: ATTEND Internal Medicine | DX: I48.0 Paroxysmal atrial fibrillation (principal); E11.9 Type 2 diabetes mellitus without complications; M34.9 Systemic sclerosis, unspecified; I11.9 Hypertensive heart disease without heart failure; Z82.49 Family history of ischemic heart disease and other diseases of the circulatory system | CPT/HCPCS: 93306 ==

== ENCOUNTER 2021-08-25 11:41 | Outpatient (CLI) | payer MEDICARE, OTHER | END 2021-08-25 11:42 | disposition short-term general hospital (02) | LOC: EMS 11:41 | DX: L08.9 Local infection of the skin and subcutaneous tissue, unspecified (principal); R53.81 Other malaise | CPT/HCPCS: A0425; A0427 ==

== ENCOUNTER 2021-09-21 12:54 | Outpatient (CLI) | payer MEDICARE, OTHER | END 2021-09-21 12:55 | disposition critical access hospital (66) | LOC: EMS 12:54 | DX: R41.82 Altered mental status, unspecified (principal) | CPT/HCPCS: A0425; A0429 ==

== ENCOUNTER 2021-09-21 13:16 | Emergency (ER) | payer MEDICARE, OTHER ==
--- OUTSIDE RECORDS SUMMARY | 2021-09-21 13:38 | EXTERNAL MEDICAL SUMMARY RPT | Continuity of Care Document ---
:1960 Author Organization [facility] Address [address] [place] [address] Phone Allergies No information. Encounters No information. Medications No information. Problems date description facility [id number] Unspecified open wound, right lower [facility] leg, sequela [id number] Malignant neoplasm of connective and [facility] soft tissue, unspecified Results No information.
[2021-09-21] MEDS ORDERED: SODIUM CHLORIDE 0.9% 1,000 ML IV STA (13:53)
--- NOTE | 2021-09-21 14:09 | XRAY Report ---
PROCEDURE: Chest 1 View X-Ray INDICATIONS: chest pain TECHNIQUE: One view of the chest was acquired. COMPARISON: 03/22/2021 FINDINGS: Surgical changes and devices: None. Lungs and pleura: No pleural effusions or pneumothorax. Lungs are clear. Mediastinum: Mediastinal contours appear normal. Heart size is normal. Bones and chest wall: No suspicious bony lesions. Overlying soft tissues appear unremarkable. IMPRESSION: No acute cardiopulmonary pathology. Reviewed by: Arian Howard MD on 09/21/2021 2:08 PM PDT Approved by: Arian Howard MD on 09/21/2021 2:08 PM PDT Station ID: [id number]
[2021-09-21 14:27] LABS: BASOPHILS # (AUTO) 0.1 10^3/uL (0.0-0.1); BASOPHILS % (AUTO) 0.4 %; EOSINOPHILS # (AUTO) 0.4 10^3/uL (0.0-0.7); EOSINOPHILS % (AUTO) 3.1 %; HGB - HEMOGLOBIN 11.7 g/dL (12.0-16.0); LYMPHOCYTES # (AUTO) 1.4 10^3/uL (1.5-3.5); LYMPHOCYTES % (AUTO) 10.4 %; MEAN CORPUSCULAR HEMOGLOBIN 30.1 pg (27.0-31.0); MEAN CORPUSCULAR HGB CONC 31.6 g/dL (32.0-36.0); MEAN CORPUSCULAR VOLUME 95.1 fL (81.0-99.0); MEAN PLATELET VOLUME 9.6 fL (7.9-10.8); MONOCYTES # (AUTO) 1.2 10^3/uL (0.0-1.0); MONOCYTES % (AUTO) 8.4 %; NEUTROPHILS # (AUTO) 10.6 10^3/uL (1.5-6.6); PLT - PLATELET COUNT 243 10^3/uL (130-450); RED BLOOD COUNT 3.89 10^6/uL (4.20-5.40); RED CELL DISTRIBUTION WIDTH 17.8 % (12.0-15.0); WHITE BLOOD COUNT 13.7 x10^3/uL (4.8-10.8)
[2021-09-21 14:40] LABS: ALBUMIN 2.9 g/dL (3.2-5.5); ALBUMIN/GLOBULIN RATIO 0.7 (1.0-2.2); ALKALINE PHOSPHATASE 70 IU/L (42-121); ALT ALANINE AMINOTRANSFERASE < 10 IU/L (10-60); AST ASPARTATE AMINOTRANSFERASE 12 IU/L (10-42); BILIRUBIN,TOTAL 1.3 mg/dL (0.2-1.0); BUN - BLOOD UREA NITROGEN 10 mg/dL (6-20); CALCIUM 10.2 mg/dL (8.5-10.3); CARBON DIOXIDE - CO2 27 mmol/L (21-32); CHLORIDE 94 mmol/L (101-111); GFR - MDRD 56 (>89); GLUCOSE 142 mg/dL (70-100); LIPASE 25 U/L (22-51); POTASSIUM 3.7 mmol/L (3.5-5.0); SODIUM 133 mmol/L (135-145); TOTAL PROTEIN 6.9 g/dL (6.7-8.2)
--- NOTE | 2021-09-21 18:03 | ED Physician Documentation ---
PD HPI ALTERED MENTAL STATUS - Stated complaint Stated Complaint: AMS - Chief complaint Chief Complaint: Neuro - History obtained from History obtained from: Patient, Family, EMS - History of Present Illness Timing - onset: How many days ago (3) Timing - duration: Days (3) Timing - details: Gradual onset, Still present Quality / character: Less responsive, Confused, Disoriented, Combative Associated symptoms: General weakness. 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 She has most recently been seen at [facility] where a biopsy was done and this appears to be a sarcoma and amputation has been recommended. The patient has not consented to this as yet. She does have a doctor at [facility] Dr. Walls who she has plans to see. She was going to see an oncologist at [facility] today and she was too confused and brought to the hospital by ambulance to [facility]. She has most recently been admitted to [facility] for infection with confusion in August of this year. Review of Systems Unable to obtain: Confused Constitutional: denies: Fever Eyes: denies: Decreased vision Ears: denies: Ear pain Nose: denies: Congestion Throat: denies: Sore throat GI: denies: Vomiting Musculoskeletal: reports: Extremity pain, Extremity swelling Neurologic: reports: Generalized weakness, Confused, Altered mental status. denies: Focal weakness, Numbness PD PAST MEDICAL HISTORY - Past Medical History Cardiovascular: Hypertension, High cholesterol, Atrial fibrillation Respiratory: None Endocrine/Autoimmune: HyPOthyroidism : None, Other HEENT: None Psych: Depression Musculoskeletal: Fatigue Derm: None - Past Surgical History Past Surgical History: Yes Ortho: Other /DIRECTOR PEDIATRIC: section, 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 - Present Medications Home Medications: Ambulatory Orders Medication Instructions Recorded Confirmed Pregabalin [Lyrica] 150 mg PO BID 10/23/12 09/21/21 Amox/Clav 500/125 [Augmentin 1 tablet PO Q12H 03/20/21 09/21/21 500/125] Apixaban [Eliquis] 5 mg PO BID 03/20/21 09/21/21 Duloxetine HCl [Cymbalta] 60 mg PO DAILY 03/20/21 09/21/21 oxyCODONE ER [OxyCONTIN] 10 mg PO BID 03/20/21 09/21/21 oxyCODONE [Roxicodone] 5 mg PO Q8HR PRN 03/20/21 09/21/21 Levothyroxine Sodium [Synthroid] 150 mcg PO QDAC 03/22/21 09/21/21 Loperamide [Imodium] 2 mg PO ONCE 03/22/21 09/21/21 Simvastatin [Zocor] 40 mg PO QPM 03/22/21 09/21/21 ondansetron HCL [Zofran] 4 mg ORAL QID PRN 03/22/21 09/21/21 - Allergies Allergies/Adverse Reactions: Allergies Allergy/AdvReac Type Severity Reaction Status Date / Time naproxen [From Naprosyn] Allergy Intermediate Edema Verified 09/21/21 13:26 piroxicam [From Feldene] Allergy Intermediate Rash Verified 09/21/21 13:26 prednisone Allergy Intermediate Edema Verified 09/21/21 13:26 amoxicillin [From Augmentin] Allergy Unknown Verified 09/21/21 13:39 benzalkonium chloride Allergy Unknown Verified 09/21/21 13:39 [From Medadyne] benzocaine [From Medadyne] Allergy Unknown Verified 09/21/21 13:39 clavulanic acid Allergy Unknown Verified 09/21/21 13:39 [From Augmentin] lidocaine [From Medadyne] Allergy Unknown Verified 09/21/21 13:39 codeine AdvReac Intermediate Emesis Verified 09/21/21 13:26 - Social History Does the pt smoke?: No Smoking Status: Never smoker Does the pt drink ETOH?: No Does the pt have substance abuse?: No - Immunizations Immunizations are current?: Yes - POLST POLST Status: Full Code PD ED PE NORMAL - Vitals Vital signs reviewed: Yes (Hypertensive mild) - General General: No acute distress, Well developed/nourished, Other (60-year-old female with a vacant stare does answer questions keeps her mouth mostly covered.) - HEENT HEENT: Atraumatic, PERRL, EOMI - Neck Neck: Supple, no meningeal sign - Cardiac Cardiac: RRR, No murmur - Respiratory Respiratory: No respiratory distress, Clear bilaterally, Other (Diminished breath sounds) - Abdomen Abdomen: Normal bowel sounds, Soft, Non tender, Non distended, No organomegaly - Back Back: No CVA TTP, No spinal TTP - Derm Derm: Normal color, Warm and dry - Extremities Extremities: Other (Over the right anterior calf the skin is mostly missing and there is a large mass that extends from just above the ankle to right below the knee. Skin does not cover this area it is granulating and there is pasty pus from the lateral margins of the wound. 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, No motor deficit, No sensory deficit, Normal speech Eye Opening: Spontaneous Motor: Obeys Commands Verbal: Confused GCS Score: 14 - Psych Psych: Other Results - Vitals Vitals: Vital Signs - 24 hr 09/21/21 09/21/21 09/21/21 13:26 14:00 15:15 Temperature 36.5 C 36.4 C L Heart Rate 100 102 H 88 Respiratory 16 18 20 Rate Blood Pressure 134/87 H 129/82 H 109/85 H O2 Saturation 100 100 100 09/21/21 09/21/21 17:00 18:02 Temperature 37.2 C Heart Rate 91 92 Respiratory 20 18 Rate Blood Pressure 110/66 112/73 O2 Saturation 100 100 Oxygen O2 Source Room air - Labs Labs: Microbiology 09/21/21 17:40 Wound Culture - Preliminary Right Lower Extremity - Wound Laboratory Tests 09/21/21 09/21/21 09/21/21 14:16 14:16 14:16 WBC 13.7 H RBC 3.89 L Hgb 11.7 L Hct 37.0 MCV 95.1 MCH 30.1 MCHC 31.6 L RDW 17.8 H Plt Count 243 MPV 9.6 Neut # (Auto) 10.6 H Lymph # (Auto) 1.4 L [place] # (Auto) 1.2 H Eos # (Auto) 0.4 Baso # (Auto) 0.1 Absolute Nucleated RBC 0.00 Nucleated RBC % 0.0 Sodium 133 L Potassium 3.7 Chloride 94 L Carbon Dioxide 27 Anion Gap 12.0 BUN 10 Creatinine 1.0 Estimated GFR (MDRD) 56 L Glucose 142 H Lactic Acid 2.0 Calcium 10.2 Total Bilirubin 1.3 H AST 12 ALT < 10 L Alkaline Phosphatase 70 Total Protein 6.9 Albumin 2.9 L Globulin 4.0 Albumin/Globulin Ratio 0.7 L Lipase 25 Procedures - IVC sono (time) 1350 Bedside IVC sono: IVC measures (cm) (1.1), Dehydration (est 1-2 liter deficit) PD MEDICAL DECISION MAKING - ED course Complexity details: reviewed old records, reviewed results, re-evaluated patient, considered differential, d/w patient, d/w family ED course: 60-year-old female with a 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 She has episodic sepsis associated with this. She usually has confusion and increased pain. She has been admitted in August at [facility] and she had plans to be seen by oncology at [facility] today. The ambulance diverted to [facility]. I have spoken to the infectious disease specialist at [facility] and she has recommended we place this patient on aztreonam vancomycin and Flagyl and transfer her to [facility] when a bed becomes available. The patient has been resistant to amputation. Departure - Departure Disposition: 02 Transfer Acute Care Hosp Clinical Impression: Complicated wound infection Carcinoma of lower limb Qualifiers: Laterality: right Qualified Code(s): C76.51 - Malignant neoplasm of right lower limb Condition: Stable
[2021-09-21] MEDS ORDERED: AZTREONAM 2 GM in SODIUM CHLORIDE 0.9% MINIBAG 100 ML IV STA (18:12)
[2021-09-21] MEDS ORDERED: metroNIDAZOLE 500 MG/100 ML 500 MG/100 ML BAG IV ONE (18:13)
[2021-09-21] MEDS ORDERED: VANCOMYCIN INJ 2 GM in SODIUM CHLORIDE 0.9% 500 ML IV STA (18:18)
[2021-09-21] MEDS ORDERED: VANCOMYCIN INJ 1 GM in SODIUM CHLORIDE 0.9% 500 ML IV SCH (19:00)
[2021-09-21] MEDS ORDERED: diltiaZEM INJ 5 MG/ML VIAL IVP STA (21:19)
--- NOTE | 2021-09-21 21:22 | ED Physician Documentation ---
ED Addendum - Addendum Addendum: 09/21/21 21:20 Nursing approached me and had noted that the patient's heart rate abruptly went to 160 just for 1 to 2 minutes and then back to 100. She was not on the heart monitor at the time but was on a oximetry Plath that showed the heart rate. By the time of being on the monitor it was sinus rhythm approximately 100. Patient does have a history of intermittent atrial fibrillation and is on an anticoagulant. Presumably she had a brief run of that versus SVT. She does not take any normal rate limiting medications. Blood pressure currently is 160s systolic. Heart rate is 98 on my exam she and she is awake and conversant without any dyspnea. Lung sounds are clear. At this point I would give a dose of diltiazem and perhaps place her on an oral dose preemptively given the more higher probability of atrial fibrillation in time of illness.
[2021-09-21 21:43] LABS: GLUCOSE, URINE (UA) NEGATIVE (NEGATIVE); KETONES,URINE (UA) 40 mg/dL (NEGATIVE); LEUKOCYTE ESTERASE, URINE NEGATIVE (NEGATIVE); NITRITE,URINE NEGATIVE (NEGATIVE); OCCULT BLOOD,URINE MODERATE (NEGATIVE); PROTEIN,URINE NEGATIVE (NEGATIVE); UROBILINOGEN,URINE 0.2 (NORMAL) E.U./dL (NORMAL)
[2021-09-21 21:50] LABS: BILIRUBIN,URINE NEGATIVE (NEGATIVE); CLARITY,URINE HAZY (CLEAR); ICTOTEST,URINE NEGATIVE; SQUAMOUS EPITHELIAL CELL,UR MOD Squamous (<= Few); WBC,URINE 0-3 /HPF (0-5)
[2021-09-21 21:51] LABS: BACTERIA,URINE Few /HPF (None Seen); MUCUS,URINE Few Strands
[2021-09-22] MEDS ORDERED: oxyCODONE 5 MG TABLET PO STA (03:21)
[2021-09-22] MEDS ORDERED: DULoxetine 30 MG CAPSULE PO STA (03:22)
[2021-09-22] MEDS ORDERED: PREGABALIN 100 MG CAPSULE PO STA (03:22)
[2021-09-22] MEDS ORDERED: diphenhydrAMINE 25 MG CAPSULE PO STA (03:22)
[2021-09-22] MEDS: oxyCODONE ER 10 MG TABLET PO SCH ×2 (03:34→08:38)
[2021-09-22] MEDS ORDERED: AZTREONAM 2 GM in SODIUM CHLORIDE 0.9% MINIBAG 100 ML IV SCH (07:00)
[2021-09-22] MEDS ORDERED: PREGABALIN 100 MG CAPSULE PO SCH ×2 (08:00)
[2021-09-22] MEDS ORDERED: PREGABALIN 25 MG CAPSULE PO SCH (08:00)
[2021-09-22] MEDS ORDERED: oxyCODONE 5 MG TABLET PO SCH (08:00)
[2021-09-22] MEDS ORDERED: oxyCODONE 5 MG TABLET PO PRN (08:16)
[2021-09-22] MEDS: metroNIDAZOLE 500 MG/100 ML 500 MG/100 ML BAG IV SCH ×2 (08:38→15:55)
[2021-09-22] MEDS: APIXABAN 5 MG TABLET PO SCH ×2 (08:38→08:39)
[2021-09-22 15:14] VITALS: BP 136/80
== END 2021-09-22 15:45 | disposition short-term general hospital (02) ==
LOC: EDUNIT# → ED 13:16
DX: L08.89 Other specified local infections of the skin and subcutaneous tissue (principal); C76.51 Malignant neoplasm of right lower limb; I48.91 Unspecified atrial fibrillation; Z79.01 Long term (current) use of anticoagulants
CPT/HCPCS: 36415; 71045; 80053; 81001; 83605; 83690; 85025; 87040; 87070; 87077; 87181; 87205; 96365; 96366; 96367; 96368; 96375; 99284; 99285; A9270; J3370; 81003; 87086

== ENCOUNTER 2021-09-22 15:55 | Outpatient (CLI) | payer MEDICARE, OTHER | END 2021-09-22 23:59 | disposition short-term general hospital (02) | LOC: EMS 15:55 | PROVIDERS: ATTEND Emergency Medicine | DX: A41.9 Sepsis, unspecified organism (principal); C49.21 Malignant neoplasm of connective and soft tissue of right lower limb, including hip | CPT/HCPCS: A0425; A0426 ==

== ENCOUNTER 2021-11-15 07:57 | Outpatient (CLI) | payer MEDICARE, OTHER | END 2021-11-15 07:58 | disposition critical access hospital (66) | LOC: EMS 07:57 | DX: R10.13 Epigastric pain (principal); K21.9 Gastro-esophageal reflux disease without esophagitis | CPT/HCPCS: A0425; A0429 ==

== ENCOUNTER 2021-11-15 08:02 | Emergency (ER) | payer MEDICARE, OTHER ==
--- NOTE | 2021-11-15 08:07 | ED Physician Documentation ---
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 Reports a chest pressure that began approximately 30 minutes ago. Is coming from [facility] where she is currently in treatment for recovery for recent right below-knee amputation.Pain is in the center of the chest without radiation. Was given aspirin at [facility] prior to arrival. Denies previous episodes of similar pain. Review of Systems Ten Systems: 10 systems reviewed and negative Constitutional: denies: Fever Eyes: denies: Loss of vision Ears: denies: Loss of hearing Nose: denies: Rhinorrhea / runny nose Throat: denies: Dental pain / toothache Cardiac: reports: Chest pain / pressure Respiratory: denies: Dyspnea GI: denies: Abdominal Pain : denies: Dysuria Skin: denies: Rash Musculoskeletal: denies: Neck pain PD PAST MEDICAL HISTORY - Past Medical History Cardiovascular: Hypertension, High cholesterol, Atrial fibrillation Respiratory: None Endocrine/Autoimmune: HyPOthyroidism : None, Other HEENT: None Psych: Depression Musculoskeletal: Fatigue Derm: None - Past Surgical History Past Surgical History: Yes 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, 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 - Present Medications Home Medications: Ambulatory Orders Medication Instructions Recorded Confirmed Pregabalin [Lyrica] 150 mg PO BID 10/23/12 11/15/21 Levothyroxine Sodium [Synthroid] 150 mcg PO QDAC 03/22/21 11/15/21 ondansetron HCL [Zofran] 8 mg SL Q8HR PRN 03/22/21 11/15/21 Acetaminophen [Tylenol] 650 mg PO Q4H PRN 11/15/21 11/15/21 Apixaban [Eliquis] 5 mg PO BID 11/15/21 11/15/21 Atorvastatin Calcium 40 mg PO DAILY PM 11/15/21 11/15/21 Bisacodyl Supp [Dulcolax Supp] 10 mg [place] PRN PRN 11/15/21 11/15/21 DULoxetine [Cymbalta] 3 cap PO DAILY 11/15/21 11/15/21 Famotidine [Pepcid] 20 mg PO BID 11/15/21 11/15/21 Folic Acid 1 mg PO DAILY 11/15/21 11/15/21 Insulin Glargine [Lantus Solostar] 8 unit SQ DAILY PM 11/15/21 11/15/21 LORazepam [Ativan] 0.5 mg PO Q6H PRN 11/15/21 11/15/21 Mag Hydrox/Aluminum Hyd/Simeth 30 ml PO Q8HR 7 Days #630 ml 11/15/21 [Mag-Al Hydrox-Simeth Max Susp] Metoprolol Succinate [Toprol Xl] 50 mg PO BID 11/15/21 11/15/21 Miconazole Nitrate 0 gm TOP BID 11/15/21 11/15/21 Mineral Oil [Mineral Oil Enema] 1 ea RC PRN PRN 11/15/21 11/15/21 Naloxone HCl [Narcan] 1 spray INH Q5MIN PRN 11/15/21 11/15/21 Omeprazole 40 mg PO DAILY #30 cap 11/15/21 Oxycodone HCl 1.5 tab PO Q4H PRN 11/15/21 11/15/21 Oxycodone HCl 10 mg PO Q4H PRN 11/15/21 11/15/21 Oxycodone HCl [Oxycodone HCl ER] 20 mg PO BID 11/15/21 11/15/21 Senna [Senokot] 2 tab PO BID 11/15/21 11/15/21 Senna [Senokot] 2 tab PO PRN PRN 11/15/21 11/15/21 Zolpidem Tartrate [Edluar] 5 mg SL DAILY PM PRN 11/15/21 11/15/21 diphenhydrAMINE HCL [Allergy] 1 cap PO Q6HR PRN 11/15/21 11/15/21 diphenhydrAMINE HCL [Allergy] 2 cap PO Q6H PRN 11/15/21 11/15/21 polyethylene glycoL 3350 [Miralax] 17 gm PO DAILY 11/15/21 11/15/21 polyethylene glycoL 3350 [Miralax] 17 gm PO PRN PRN 11/15/21 11/15/21 - Allergies Allergies/Adverse Reactions: Allergies Allergy/AdvReac Type Severity Reaction Status Date / Time naproxen [From Naprosyn] Allergy Intermediate Edema Verified 11/15/21 08:11 piroxicam [From Feldene] Allergy Intermediate Rash Verified 11/15/21 08:11 prednisone Allergy Intermediate Edema Verified 11/15/21 08:11 amoxicillin [From Augmentin] Allergy Unknown Verified 11/15/21 08:11 benzalkonium chloride Allergy Unknown Verified 11/15/21 08:11 [From Medadyne] benzocaine [From Medadyne] Allergy Unknown Verified 11/15/21 08:11 clavulanic acid Allergy Unknown Verified 11/15/21 08:11 [From Augmentin] lidocaine [From Medadyne] Allergy Unknown Verified 11/15/21 08:11 codeine AdvReac Intermediate Emesis Verified 11/15/21 08:11 - Social History Does the pt smoke?: No Smoking Status: Never smoker Does the pt drink ETOH?: No Does the pt have substance abuse?: No - Immunizations Immunizations are current?: Yes - POLST POLST Status: Full Code PD ED PE NORMAL - Vitals Vital signs reviewed: Yes (wnl) - General General: Alert and oriented X 3, No acute distress, Other (Obese) - HEENT HEENT: Atraumatic - Neck Neck: Supple, no meningeal sign - Cardiac Cardiac: RRR, No gallop - Respiratory Respiratory: No respiratory distress, Clear bilaterally - Abdomen Abdomen: Normal bowel sounds, Non tender - Female Female : Deferred - Rectal Rectal: Deferred - Derm Derm: Normal color - Extremities Extremities: No: No deformity (Right BKA with flap, appears well-healed) - Neuro Neuro: Alert and oriented X 3, 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, No motor deficit, No sensory deficit, Normal speech - Psych Psych: Other (Flat affect) Results - Vitals Vitals: Vital Signs - 24 hr 11/15/21 11/15/21 11/15/21 08:07 08:46 09:00 Temperature 36.1 C L Heart Rate 75 69 69 Respiratory 13 11 L 11 L Rate Blood Pressure 136/73 H 124/77 109/70 O2 Saturation 99 96 97 11/15/21 11/15/21 11/15/21 09:30 10:00 10:30 Temperature Heart Rate 66 71 70 Respiratory 9 L 10 L 10 L Rate Blood Pressure 109/70 110/64 118/70 O2 Saturation 96 97 98 11/15/21 11/15/21 11/15/21 11:56 12:00 12:30 Temperature Heart Rate 71 108 H Respiratory 14 21 14 Rate Blood Pressure 106/56 L 102/62 O2 Saturation 96 96 Oxygen O2 Source Room air - EKG (time done) 0809 Rate: Rate (enter#) (72) Rhythm: NSR [place]: Normal Intervals: Normal [place] QRS: Normal Ischemia: Normal ST segments. No: Hyperacute T waves, T wave inversion Compare to prior EKG: Old EKG unavailable Computer interpretation: Agree with computer - Labs Labs: Laboratory Tests 11/15/21 11/15/21 11/15/21 08:51 08:51 08:51 WBC 9.5 RBC 2.55 L Hgb 8.0 L Hct 27.1 L MCV 106.3 H MCH 31.4 H MCHC 29.5 L RDW 21.2 H Plt Count 164 MPV 10.6 Neut # (Auto) 7.4 H Lymph # (Auto) 0.9 L [place] # (Auto) 0.8 Eos # (Auto) 0.3 Baso # (Auto) 0.0 Absolute Nucleated RBC 0.00 Nucleated RBC % 0.0 Manual Slide Review Indicated WBC Morphology NORMAL APPEARANCE Platelet Estimate NORMAL (130-450,000) Platelet Morphology NORMAL APPEARANCE RBC Morph Micro Appear 1+ POLYCHROMASIA Sodium 139 Potassium 4.2 Chloride 99 L Carbon Dioxide 28 Anion Gap 12.0 BUN 12 Creatinine 1.0 Estimated GFR (MDRD) 56 L Glucose 128 H Calcium 8.8 Total Bilirubin 1.0 AST 17 ALT 25 Alkaline Phosphatase 88 Troponin I High Sens 3.3 Total Protein 6.8 Albumin 2.2 L Globulin 4.6 H Albumin/Globulin Ratio 0.5 L Lipase 30 11/15/21 10:41 WBC RBC Hgb Hct MCV MCH MCHC RDW Plt Count MPV Neut # (Auto) Lymph # (Auto) [place] # (Auto) Eos # (Auto) Baso # (Auto) Absolute Nucleated RBC Nucleated RBC % Manual Slide Review WBC Morphology Platelet Estimate Platelet Morphology RBC Morph Micro Appear Sodium Potassium Chloride Carbon Dioxide Anion Gap BUN Creatinine Estimated GFR (MDRD) Glucose Calcium Total Bilirubin AST ALT Alkaline Phosphatase Troponin I High Sens 3.2 Total Protein Albumin Globulin Albumin/Globulin Ratio Lipase PD MEDICAL DECISION MAKING - ED course Complexity details: reviewed results, d/w patient ED course: Patient is 60-year-old female with past medical significant for diabetes,Hypertension, obesity, recent hospitalization for right BKA as well as a history of A. fib on Eliquis. Afebrile, he medically stable on arrival to the emergency department. EKG is on above was negative for indications of acute ischemia or dysrhythmia. Serial troponins were negative. Chest x-ray nonacute. Pulmonary embolism is considered however patient's clinical presentation is inconsistent with this as she has no tachycardia, tachypnea, hemoptysis and is currently on a novel oral anticoagulant. She was monitored in the emergency department for several hours. Was given dose of oral Protonix and GI cocktail with some symptomatic relief. At this time will discharge back to her care facility on an ongoing course of MiraLAX And Protonix to add to her existing medications. Departure - Departure Disposition: 01 Home, Self Care Clinical Impression: Chest pain Instructions: ED Chest Pain Atypical Unkn Cause Prescriptions: Mag Hydrox/Aluminum Hyd/Simeth [Mag-Al Hydrox-Simeth Max Susp] 30 ml PO Q8HR 7 Days #630 ml Omeprazole 40 mg PO DAILY #30 cap Comments: Thank you for allowing us to care for you today at [facility]. Prescription sent electronically to [facility] pharmacy Today in the emergency department your evaluated for any possible life- threatening medical emergency. All the testing performed in the emergency department including your blood work, EKG and the chest x-ray performed were all very reassuring. I will be discharging with some medications you can take to help with any ongoing pain. Please follow-up with your primary care team as soon as possible. If it anytime you develop any new or worsening symptoms please not hesitate to return. Discharge Date/Time: 11/15/21 13:19
--- OUTSIDE RECORDS SUMMARY | 2021-11-15 08:11 | EXTERNAL MEDICAL SUMMARY RPT | Continuity of Care Document ---
:1960 Author Organization [facility] Address [address] [place] [address] Phone Allergies No information. Encounters No information. Medications No information. Problems date description facility [id number] squamous cell carcinoma, chronic wound [facility] right leg. [id number] Unspecified open wound, right lower [facility] leg, sequela [id number] Malignant neoplasm of connective and [facility] soft tissue, unspecified Results No information.
[2021-11-15] MEDS ORDERED: PANTOPRAZOLE 40 MG VIAL IVP STA (08:15)
[2021-11-15] MEDS ORDERED: ONDANSETRON 4 MG/2 ML VIAL IVP STA (08:15)
[2021-11-15] MEDS ORDERED: PANTOPRAZOLE 40 MG TABLET PO STA (08:38)
[2021-11-15] MEDS ORDERED: MAG HYDROX/AL HYDROX/SIMETH 30 ML UDC PO STA (08:39)
[2021-11-15 08:57] LABS: BASOPHILS % (AUTO) 0.2 %; EOSINOPHILS # (AUTO) 0.3 10^3/uL (0.0-0.7); EOSINOPHILS % (AUTO) 3.1 %; HCT - HEMATOCRIT 27.1 % (37.0-47.0); LYMPHOCYTES # (AUTO) 0.9 10^3/uL (1.5-3.5); LYMPHOCYTES % (AUTO) 9.2 %; MEAN CORPUSCULAR HEMOGLOBIN 31.4 pg (27.0-31.0); MEAN CORPUSCULAR HGB CONC 29.5 g/dL (32.0-36.0); MEAN CORPUSCULAR VOLUME 106.3 fL (81.0-99.0); MEAN PLATELET VOLUME 10.6 fL (7.9-10.8); MONOCYTES # (AUTO) 0.8 10^3/uL (0.0-1.0); MONOCYTES % (AUTO) 8.8 %; NEUTROPHILS # (AUTO) 7.4 10^3/uL (1.5-6.6); NEUTROPHILS % (AUTO) 78.2 %; PLT - PLATELET COUNT 164 10^3/uL (130-450); RED BLOOD COUNT 2.55 10^6/uL (4.20-5.40); RED CELL DISTRIBUTION WIDTH 21.2 % (12.0-15.0); WHITE BLOOD COUNT 9.5 x10^3/uL (4.8-10.8)
[2021-11-15 09:11] LABS: ALBUMIN 2.2 g/dL (3.2-5.5); ALBUMIN/GLOBULIN RATIO 0.5 (1.0-2.2); CALCIUM 8.8 mg/dL (8.5-10.3); POTASSIUM 4.2 mmol/L (3.5-5.0); TOTAL PROTEIN 6.8 g/dL (6.7-8.2)
[2021-11-15 09:15] LABS: SLIDE REVIEW? Indicated
[2021-11-15 09:16] LABS: PLATELET ESTIMATE, MANUAL NORMAL (130-450,000) (NORMAL); PLATELET MORPHOLOGY NORMAL APPEARANCE (NORMAL)
[2021-11-15 09:17] LABS: WBC MORPHOLOGY (MULTIPLE) NORMAL APPEARANCE (NORMAL)
--- NOTE | 2021-11-15 09:18 | XRAY Report ---
PROCEDURE: Chest 1 View X-Ray INDICATIONS: chest pain TECHNIQUE: One view of the chest was acquired. COMPARISON: 09/21/2021, 03/08/2021 FINDINGS: Surgical changes and devices: None. Lungs and pleura: No pleural effusions or pneumothorax. Continued chronic interstitial changes in th e right upper lobe. No acute infiltrates. Mediastinum: Mediastinal contours appear normal. Heart size is normal. Bones and chest wall: No suspicious bony lesions. Overlying soft tissues appear unremarkable. IMPRESSION: Chronic interstitial changes in the right upper lobe. No acute infiltrates. Reviewed by: Chandler Xavier MD on 11/15/2021 9:17 AM PDT Approved by: Chandler Xavier MD on 11/15/2021 9:17 AM PDT Station ID: [id number]
[2021-11-15 12:10] VITALS: BP 102/62
== END 2021-11-15 13:19 | disposition home or self-care (01) ==
LOC: EDUNIT# → ED 08:02
DX: R07.9 Chest pain, unspecified (principal); E11.9 Type 2 diabetes mellitus without complications; Z79.4 Long term (current) use of insulin; I10 Essential (primary) hypertension; I48.91 Unspecified atrial fibrillation; Z79.01 Long term (current) use of anticoagulants
CPT/HCPCS: 36415; 71045; 80053; 83690; 84484; 85025; 93005; 99283; 99284; A9270

== ENCOUNTER 2021-11-15 13:22 | Outpatient (CLI) | payer MEDICARE, OTHER | END 2021-11-15 13:23 | disposition home or self-care (01) | LOC: EMS 13:22 | PROVIDERS: ATTEND Student in an Organized Health Care Education/Training Program | DX: Z74.01 Bed confinement status (principal); Z89.511 Acquired absence of right leg below knee | CPT/HCPCS: A0425; A0428 ==

== ENCOUNTER 2022-01-22 09:20 | Inpatient (IN) | payer MEDICARE, OTHER ==
--- NOTE | 2022-01-22 09:26 | ED Physician Documentation ---
History of Present Illness - Stated complaint Stated Complaint: GENERAL WEAKNESS - History obtained from History obtained from: Patient, EMS - History of Present Illness Timing: How many days ago (2) - Additonal information Additional information: 61-year-old female with history of sarcoma, history of right-sided BKA, morbid obesity presents by EMS from home for generalized weakness. History is obtained mostly from EMS as the patient is listless and does not participate in the exam. EMS states that the patient was discharged home from [facility] to the care of her son several weeks ago. He told EMS that the patient has stopped taking all of her medications and refuses treatment. 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, 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 - Present Medications Home Medications: Ambulatory Orders Medication Instructions Recorded Confirmed Pregabalin [Lyrica] 150 mg PO BID 10/23/12 11/23/21 Levothyroxine Sodium [Synthroid] 150 mcg PO QDAC 03/22/21 11/23/21 ondansetron HCL [Zofran] 8 mg SL Q8HR PRN 03/22/21 11/23/21 Acetaminophen [Tylenol] 650 mg PO Q4H PRN 11/15/21 11/23/21 Apixaban [Eliquis] 5 mg PO BID 11/15/21 11/23/21 Atorvastatin Calcium 40 mg PO DAILY PM 11/15/21 11/23/21 Bisacodyl Supp [Dulcolax Supp] 10 mg [place] PRN PRN 11/15/21 11/23/21 Insulin Glargine [Lantus Solostar] 8 unit SQ DAILY PM 11/15/21 11/23/21 LORazepam [Ativan] 0.5 mg PO Q6H PRN 11/15/21 11/23/21 Metoprolol Succinate [Toprol Xl] 50 mg PO BID 11/15/21 11/23/21 Mineral Oil [Mineral Oil Enema] 1 ea RC PRN PRN 11/15/21 11/23/21 Naloxone HCl [Narcan] 1 spray INH Q5MIN PRN 11/15/21 11/23/21 Omeprazole 40 mg PO DAILY #30 cap 11/15/21 11/23/21 Oxycodone HCl [Oxycodone HCl ER] 20 mg PO BID 11/15/21 11/23/21 Senna [Senokot] 2 tab PO BID 11/15/21 11/23/21 Senna [Senokot] 2 tab PO PRN PRN 11/15/21 11/23/21 polyethylene glycoL 3350 [Miralax] 17 gm PO DAILY 11/15/21 11/23/21 polyethylene glycoL 3350 [Miralax] 17 gm PO PRN PRN 11/15/21 11/23/21 - Allergies Allergies/Adverse Reactions: Allergies Allergy/AdvReac Type Severity Reaction Status Date / Time naproxen [From Naprosyn] Allergy Intermediate Edema Verified 11/15/21 08:11 piroxicam [From Feldene] Allergy Intermediate Rash Verified 11/15/21 08:11 prednisone Allergy Intermediate Edema Verified 11/15/21 08:11 amoxicillin [From Augmentin] Allergy Unknown Verified 11/15/21 08:11 benzalkonium chloride Allergy Unknown Verified 11/15/21 08:11 [From Medadyne] benzocaine [From Medadyne] Allergy Unknown Verified 11/15/21 08:11 clavulanic acid Allergy Unknown Verified 11/15/21 08:11 [From Augmentin] lidocaine [From Medadyne] Allergy Unknown Verified 11/15/21 08:11 codeine AdvReac Intermediate Emesis Verified 11/15/21 08:11 - Social History Does the pt smoke?: No Smoking Status: Never smoker Does the pt drink ETOH?: No Does the pt have substance abuse?: No - Immunizations Immunizations are current?: Yes - POLST POLST Status: Full Code PD ED PE NORMAL - Vitals Vital signs reviewed: Yes - General General: No acute distress, Other (morbidly obese, appears older than stated age, chronically unwell) - HEENT HEENT: Atraumatic, PERRL, EOMI, Ears normal - Neck Neck: Supple, no meningeal sign, No bony TTP - Cardiac Cardiac: RRR, No murmur, Strong equal pulses - Respiratory Respiratory: No respiratory distress, Clear bilaterally - Abdomen Abdomen: Soft, Non tender, Non distended, Other (morbidly obese) - Female Female : Deferred - Rectal Rectal: Deferred - Back Back: No CVA TTP, No spinal TTP - Derm Derm: Normal color, Warm and dry, No rash - Extremities Extremities: Other (R BKA, clean and dry) - Neuro 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: 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7 MCHC 29.3 L RDW 15.6 H Plt Count 214 MPV 9.5 Neut # (Auto) 9.7 H Lymph # (Auto) 0.9 L [place] # (Auto) 0.7 Eos # (Auto) 0.4 Baso # (Auto) 0.0 Absolute Nucleated RBC 0.00 Nucleated RBC % 0.0 PT 12.9 H INR 1.2 Sodium 142 Potassium 4.0 Chloride 100 L Carbon Dioxide 30 Anion Gap 12.0 BUN 11 Creatinine 1.1 H Estimated GFR (MDRD) 50 L Glucose 130 H Calcium 9.3 Phosphorus 4.1 Magnesium 2.1 Total Bilirubin 1.2 H AST < 10 L ALT < 10 L Alkaline Phosphatase 90 Troponin I High Sens B-Natriuretic Peptide Total Protein 6.3 L Albumin 1.9 L Globulin 4.4 H Albumin/Globulin Ratio 0.4 L Urine Color Urine Clarity Urine pH Ur Specific [place] Urine Protein Urine Glucose (UA) Urine Ketones Urine Occult Blood Urine Nitrite Urine Bilirubin Urine Urobilinogen Ur Leukocyte Esterase Urine RBC Urine WBC Ur Squamous Epith Cells Urine Bacteria Ur Microscopic Review Urine Culture Comments Urine Opiates Screen Ur Oxycodone Screen Urine Methadone Screen Ur Propoxyphene Screen Ur Barbiturates Screen Ur Tricyclics Screen Ur Phencyclidine Scrn Ur Amphetamine Screen U Methamphetamines Scrn U Benzodiazepines Scrn Urine Cocaine Screen U Cannabinoids Screen 01/22/22 01/22/22 01/22/22 09:44 09:44 13:23 WBC RBC Hgb Hct MCV MCH MCHC RDW Plt Count MPV Neut # (Auto) Lymph # (Auto) [place] # (Auto) Eos # (Auto) Baso # (Auto) Absolute Nucleated RBC Nucleated RBC % PT INR Sodium Potassium Chloride Carbon Dioxide Anion Gap BUN Creatinine Estimated GFR (MDRD) Glucose Calcium Phosphorus Magnesium Total Bilirubin AST ALT Alkaline Phosphatase Troponin I High Sens 5.9 B-Natriuretic Peptide 214 H Total Protein Albumin Globulin Albumin/Globulin Ratio Urine Color YELLOW Urine Clarity CLOUDY Urine pH 6.0 Ur Specific [place] 1.025 Urine Protein NEGATIVE Urine Glucose (UA) NEGATIVE Urine Ketones 40 H Urine Occult Blood TRACE-INTA Urine Nitrite NEGATIVE Urine Bilirubin NEGATIVE Urine Urobilinogen 1 (NORMAL) Ur Leukocyte Esterase MODERATE H Urine RBC 0-5 Urine WBC >25 H Ur Squamous Epith Cells NONE SEEN Urine Bacteria Many H Ur Microscopic Review INDICATED Urine Culture Comments INDICATED Urine Opiates Screen Ur Oxycodone Screen Urine Methadone Screen Ur Propoxyphene Screen Ur Barbiturates Screen Ur Tricyclics Screen Ur Phencyclidine Scrn Ur Amphetamine Screen U Methamphetamines Scrn U Benzodiazepines Scrn Urine Cocaine Screen U Cannabinoids Screen 01/22/22 13:23 WBC RBC Hgb Hct MCV MCH MCHC RDW Plt Count MPV Neut # (Auto) Lymph # (Auto) [place] # (Auto) Eos # (Auto) Baso # (Auto) Absolute Nucleated RBC Nucleated RBC % PT INR Sodium Potassium Chloride Carbon Dioxide Anion Gap BUN Creatinine Estimated GFR (MDRD) Glucose Calcium Phosphorus Magnesium Total Bilirubin AST ALT Alkaline Phosphatase Troponin I High Sens B-Natriuretic Peptide Total Protein Albumin Globulin Albumin/Globulin Ratio Urine Color Urine Clarity Urine pH Ur Specific [place] Urine Protein Urine Glucose (UA) Urine Ketones Urine Occult Blood Urine Nitrite Urine Bilirubin Urine Urobilinogen Ur Leukocyte Esterase Urine RBC Urine WBC Ur Squamous Epith Cells Urine Bacteria Ur Microscopic Review Urine Culture Comments Urine Opiates Screen NEGATIVE Ur Oxycodone Screen POSITIVE H Urine Methadone Screen NEGATIVE Ur Propoxyphene Screen NEGATIVE Ur Barbiturates Screen NEGATIVE Ur Tricyclics Screen NEGATIVE Ur Phencyclidine Scrn NEGATIVE Ur Amphetamine Screen NEGATIVE U Methamphetamines Scrn NEGATIVE U Benzodiazepines Scrn NEGATIVE Urine Cocaine Screen NEGATIVE U Cannabinoids Screen POSITIVE H PD MEDICAL DECISION MAKING - ED course Complexity details: reviewed old records, reviewed results, re-evaluated patient, considered differential, d/w patient, d/w family ED course: Altered mental status and generalized weakness. Patient has flat affect, minimally participative in exam. EMS reports that family is on the way to provide additional history. In meantime labs and imaging are ordered. has arrived at bedside, he states that in fact the patient has had generalized weakness and a overall decline in her function for the last several weeks, today is different because she fell out of bed and he had trouble getting her back into bed. He states that she was sent home from rehab because she refused to participate. Today she has not been taking her medications which is unusual for her. He endorses frustration that the patient has not been active in her care. She is currently getting chemo at a facility in [place] for her cancer, which she states is a "sarcoma". Labs thus far fairly unremarkable, pending urinalysis. Urinalysis is significant for leukocyte esterase, WBCs, bacteria. We will give 2 g of Rocephin and admit for further treatment. Departure - Departure Disposition: 66 [facility] DC/Xfer Clinical Impression: Altered mental status, UTI (urinary tract infection), Sarcoma, Failure to thrive in adult, Status post below knee amputation of right lower extremity Condition: Stable Discharge Date/Time: 01/22/22 14:53
[2022-01-22 09:49] LABS: BASOPHILS % (AUTO) 0.3 %; EOSINOPHILS # (AUTO) 0.4 10^3/uL (0.0-0.7); EOSINOPHILS % (AUTO) 2.9 %; HCT - HEMATOCRIT 32.4 % (37.0-47.0); HGB - HEMOGLOBIN 9.5 g/dL (12.0-16.0); LYMPHOCYTES # (AUTO) 0.9 10^3/uL (1.5-3.5); LYMPHOCYTES % (AUTO) 7.9 %; MEAN CORPUSCULAR HEMOGLOBIN 30.7 pg (27.0-31.0); MEAN CORPUSCULAR HGB CONC 29.3 g/dL (32.0-36.0); MEAN CORPUSCULAR VOLUME 104.9 fL (81.0-99.0); MEAN PLATELET VOLUME 9.5 fL (7.9-10.8); MONOCYTES # (AUTO) 0.7 10^3/uL (0.0-1.0); MONOCYTES % (AUTO) 6.2 %; NEUTROPHILS # (AUTO) 9.7 10^3/uL (1.5-6.6); NEUTROPHILS % (AUTO) 81.7 %; PLT - PLATELET COUNT 214 10^3/uL (130-450); RED BLOOD COUNT 3.09 10^6/uL (4.20-5.40); RED CELL DISTRIBUTION WIDTH 15.6 % (12.0-15.0); WHITE BLOOD COUNT 11.9 x10^3/uL (4.8-10.8)
[2022-01-22 09:56] LABS: INR 1.2 (0.8-1.2); PT - PROTHROMBIN TIME 12.9 secs (9.9-12.6)
[2022-01-22 10:10] LABS: ALBUMIN 1.9 g/dL (3.2-5.5); ALBUMIN/GLOBULIN RATIO 0.4 (1.0-2.2); ALKALINE PHOSPHATASE 90 IU/L (42-121); ALT ALANINE AMINOTRANSFERASE < 10 IU/L (10-60); AST ASPARTATE AMINOTRANSFERASE < 10 IU/L (10-42); BILIRUBIN,TOTAL 1.2 mg/dL (0.2-1.0); BUN - BLOOD UREA NITROGEN 11 mg/dL (6-20); CALCIUM 9.3 mg/dL (8.5-10.3); CARBON DIOXIDE - CO2 30 mmol/L (21-32); CHLORIDE 100 mmol/L (101-111); CREATININE 1.1 mg/dL (0.4-1.0); GFR - MDRD 50 (>89); GLUCOSE 130 mg/dL (70-100); MAGNESIUM 2.1 mg/dL (1.7-2.8); PHOSPHORUS 4.1 mg/dL (2.5-4.6); SODIUM 142 mmol/L (135-145); TOTAL PROTEIN 6.3 g/dL (6.7-8.2)
--- NOTE | 2022-01-22 10:10 | XRAY Report ---
PROCEDURE: Chest 1 View X-Ray INDICATIONS: AMS, GEN WEAKNESS TECHNIQUE: One view of the chest was acquired. COMPARISON: 11/15/2021, 09/21/2021 FINDINGS: Surgical changes and devices: None. Lungs and pleura: An incomplete inspiratory result is noted, with low lung volumes and crowding of t he vascular markings. No focal infiltrates are seen. No large pneumothorax or large pleural effusion can be seen. Mediastinum: Mediastinal contours appear normal. Heart size is normal. Bones and chest wall: No suspicious bony lesions. Age-appropriate degenerative changes are seen. Overlying soft tissues appear unremarkable. IMPRESSION: Low lung volumes, without an acute plain film abnormality seen. Reviewed by: Ja Olson MD on 01/22/2022 10:09 AM PDT Approved by: Ja Olson MD on 01/22/2022 10:09 AM PDT Station ID: [id number]
--- NOTE | 2022-01-22 10:13 | CT Report ---
PROCEDURE: HEAD WO INDICATIONS: AMS, GEN WEAKNESS, HX CANCER TECHNIQUE: Noncontrast 4.5 mm thick angled axial sections acquired from the foramen magnum to the vertex. For r adiation dose reduction, the following was used: automated exposure control, adjustment of mA and/or kV according to patient size. COMPARISON: Correlation is made with the accompanying chest, 01/22/2022 FINDINGS: Image quality: Excellent. CSF spaces: Basal cisterns are patent. No extra-axial fluid collections. Ventricles are normal in size and shape. Brain: No midline shift. No intracranial masses or hemorrhage. Colin-white matter interface is norm al. Atherosclerotic calcification is seen. Skull and face: Calvarium and visualized facial bones are intact, without suspicious lesions. Sinuses: Visualized sinuses and mastoids are clear. IMPRESSION: Unremarkable intracranial study for age. To the limits of this noncontrast head CT, no masses are seen. If there is strong clinical concern for a stroke, please consider a dedicated brain MRI for further e valuation (assuming that there is no contraindication to MRI). Reviewed by: Ja Olson MD on 01/22/2022 10:12 AM PDT Approved by: Ja Olson MD on 01/22/2022 10:12 AM PDT Station ID: [id number]
[2022-01-22 13:28] LABS: GLUCOSE, URINE (UA) NEGATIVE (NEGATIVE); KETONES,URINE (UA) 40 mg/dL (NEGATIVE); LEUKOCYTE ESTERASE, URINE MODERATE (NEGATIVE); NITRITE,URINE NEGATIVE (NEGATIVE); OCCULT BLOOD,URINE TRACE-INTA (NEGATIVE); PROTEIN,URINE NEGATIVE (NEGATIVE); UROBILINOGEN,URINE 1 (NORMAL) E.U./dL (NORMAL)
[2022-01-22 13:31] LABS: BILIRUBIN,URINE NEGATIVE (NEGATIVE); CLARITY,URINE CLOUDY (CLEAR); ICTOTEST,URINE NEGATIVE
[2022-01-22 13:39] LABS: BACTERIA,URINE Many /HPF (None Seen); RBC,URINE 0-5 /HPF (0-5); SQUAMOUS EPITHELIAL CELL,UR NONE SEEN (<= Few); WBC,URINE >25 /HPF (0-5)
[2022-01-22] MEDS ORDERED: cefTRIAXone 2 GM in SODIUM CHLORIDE 0.9% MINIBAG 100 ML IV STA (13:39)
[2022-01-22] MEDS ORDERED: SODIUM CHLORIDE FLUSH 0.9% 10 ML SYRINGE IVP PRN (14:02)
[2022-01-22] MEDS ORDERED: ONDANSETRON 4 MG/2 ML VIAL IVP PRN (14:08)
--- NOTE | 2022-01-22 14:21 | HISTORY & PHYSICAL EXAMINATION ---
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 The history is obtained from the patient's significant other as she is too altered to provide history. He tells me that she is as with osteosarcoma earlier this year and underwent a right BKA at [facility]. She was hospitalized for over 2 weeks and required ICU care. She was then discharged to [facility] in [place] for therapy. She states she has been started on chemotherapy and her next dose was supposed to be within the next week. He tells me the patient was just discharged this past from [facility] as she was not progressing from physical therapy standpoint due to her pain. She was supposed to get home health but they have not yet seen the patient. He states that this morning she became confused which she states that she has done in the past but this seemed a little worse than usual. He thought it may have been due to her medications as she is on high doses of opiates and she also takes Lyrica. He does help her take the narcotics but otherwise leave the rest of her medications to her to take on her own. This morning she still was confused and so weak he could not get her out of bed so he brought her to the emergency department. He tells me that her cancer has spread to her pelvis and her left lower extremity as well. She is followed by Dr. Bess at [facility]. He believes the patient did receive radiation prior to chemotherapy. She has required transfusions over the past few months due to anemia. He does not believe the patient has made a decision regarding her long-term goals of care and he believes her daughter, Carlee, has medical power of assistant attorney general. In the emergency department, she is noted to be quite confused and kept repeating the same words. She would not answer questions appropriately. Her urinalysis did suggest potential infection however the count little elevated. She was given ceftriaxone IV. CT the head showed no acute abnormalities. Given the above findings, medicine was consulted for admission. I did discuss goals of care with her daughter, Carlee, who is her medical power of assistant attorney general. She states mom was not expressed in the past when her goals would be. She wants to discuss with her siblings before making a decision and therefore the patient will be a full code for the time being. History - Past Medical History Cardiovascular: reports: Hypertension, High cholesterol, Atrial fibrillation Respiratory: reports: None Endocrine/Autoimmune: reports: HyPOthyroidism : reports: None, Other HEENT: reports: None Psych: reports: Depression Musculoskeletal: reports: Fatigue Derm: reports: None MRSA Hx?: No Other Past Medical History: Osteosarcoma. - Past Surgical History Ortho: reports: Amputation (Right BKA.) /[employer]: reports: section, 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 - Family & Social History Family History Comment/Other: Unable to obtain due to altered mental status. Living arrangement: At home Living Situation: With spouse/s.o. Social History Notes: She lives at home with her significant other, Jani. - Substance History Use: Uses substance without health or social issues: NONE - POLST POLST Status: Full Code Meds/Allgy - Home Medications Home Medications: Ambulatory Orders Medication Instructions Recorded Confirmed Pregabalin [Lyrica] 150 mg PO BID 10/23/12 01/22/22 Levothyroxine Sodium [Synthroid] 150 mcg PO QDAC 03/22/21 11/23/21 ondansetron HCL [Zofran] 8 mg SL Q8HR PRN 03/22/21 11/23/21 Acetaminophen [Tylenol] 650 mg PO Q4H PRN 11/15/21 11/23/21 Apixaban [Eliquis] 5 mg PO BID 11/15/21 01/22/22 Atorvastatin Calcium 40 mg PO DAILY PM 11/15/21 01/22/22 Bisacodyl Supp [Dulcolax Supp] 10 mg [place] PRN PRN 11/15/21 11/23/21 Insulin Glargine [Lantus Solostar] 8 unit SQ DAILY PM 11/15/21 11/23/21 LORazepam [Ativan] 0.5 mg PO Q6H PRN 11/15/21 11/23/21 Metoprolol Succinate [Toprol Xl] 50 mg PO BID 11/15/21 11/23/21 Mineral Oil [Mineral Oil Enema] 1 ea RC PRN PRN 11/15/21 11/23/21 Naloxone HCl [Narcan] 1 spray INH Q5MIN PRN 11/15/21 11/23/21 Omeprazole 40 mg PO DAILY #30 cap 11/15/21 01/22/22 Oxycodone HCl [Oxycodone HCl ER] 20 mg PO BID 11/15/21 11/23/21 Senna [Senokot] 2 tab PO BID 11/15/21 11/23/21 Senna [Senokot] 2 tab PO PRN PRN 11/15/21 11/23/21 polyethylene glycoL 3350 [Miralax] 17 gm PO DAILY 11/15/21 11/23/21 polyethylene glycoL 3350 [Miralax] 17 gm PO PRN PRN 11/15/21 11/23/21 Oxycodone HCl [Oxycontin] 30 mg PO Q6H 01/22/22 01/22/22 oxyCODONE [Roxicodone] 30 mg PO Q6H 01/22/22 01/22/22 - Allergies Allergies/Adverse Reactions: Allergies Allergy/AdvReac Type Severity Reaction Status Date / Time naproxen [From Naprosyn] Allergy Intermediate Edema Verified 11/15/21 08:11 piroxicam [From Feldene] Allergy Intermediate Rash Verified 11/15/21 08:11 prednisone Allergy Intermediate Edema Verified 11/15/21 08:11 amoxicillin [From Augmentin] Allergy Unknown Verified 11/15/21 08:11 benzalkonium chloride Allergy Unknown Verified 11/15/21 08:11 [From Medadyne] benzocaine [From Medadyne] Allergy Unknown Verified 11/15/21 08:11 clavulanic acid Allergy Unknown Verified 11/15/21 08:11 [From Augmentin] lidocaine [From Medadyne] Allergy Unknown Verified 11/15/21 08:11 codeine AdvReac Intermediate Emesis Verified 11/15/21 08:11 Review of Systems - All Other Systems All Other Systems: reports: Other (Altered mental status) Prior Level of Functionality: Dependent with most of her ADL's. Exam - Vital Signs Reviewed Vital Signs: Yes Vital Signs: Vital Signs x48h Temp Pulse Resp BP Pulse Ox 01/22/22 14:08 98 15 159/75 H 97 01/22/22 13:00 87 11 L 157/83 H 94 01/22/22 11:31 96 13 147/90 H 99 01/22/22 09:27 36.9 C 94 23 137/90 H 95 - Physical Exam General Appearance: positive: Other (She is lethargic but will answer questions. She repeats the same answer over and over again. She always answers with her date of no matter what the question asked is.) Eyes Bilateral: positive: Other (Pupils are dilated but reactive to light) ENT: positive: Dry mucous membranes. negative: No signs of dehydration Neck: positive: Nml inspection Respiratory: positive: No respiratory distress. negative: Wheezes, Rales Cardiovascular: positive: Regular rate & rhythm. negative: Tachycardia Abdomen: positive: Non-tender, No distention. negative: Tenderness Skin: positive: Warm, Dry Extremities: positive: No pedal edema, Other (Right BKA noted) Neurologic/Psychiatric: positive: Disoriented to place, Disoriented to time, Other (She does not appear to have any focal deficits although exam is limited due to her altered mental status.) Conclusion/Plan - Problem List (1) Altered mental status Conclusion/Plan: She is most definitely altered which I suspect may be related to her home medications as she is on high-dose opiates and Lyrica which she may be taking incorrectly to manage her pain. Interestingly, her pupils are dilated but reactive to light which would go against opiate misuse. CT the head revealed no acute abnormalities. Her urinalysis may suggest infection and we will treat this with antibiotics. We will place her in observation for IV hydration and will check TSH, ammonia, B12 level. If she is still altered over next 24 hours then we will obtain an MRI of the brain in the morning. Check urine drug screen. (2) UTI (urinary tract infection) Conclusion/Plan: She is unable to tell us if she has symptoms or not so we will treat her empi rically with ceftriaxone IV given her urinalysis revealed pyuria and bacteriuria. Her white blood cell count is also elevated. We will follow-up urine culture. 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. Her oncologist is Dr. Bess. We will hold her home opiates given her ultimately status at this time. I discussed with her significant other and her daughter regarding palliative care and they are agreeable to this. I expressed my concern regarding long-term goals given the metastatic cancer. (4) Status post below knee amputation of right lower extremity Conclusion/Plan: She is status post amputation earlier this year for the osteosarcoma. We will hold her home Lyrica at this time given her altered mental status. (5) Anemia Conclusion/Plan: She does have chronic anemia likely secondary to her malignancy and the chemotherapy. Her hemoglobin is currently 9.5 which is stable compared to 2 months ago. We will monitor for signs of bleeding. Repeat hemoglobin in the morning. Qualifiers: Anemia type: unspecified type Qualified Code(s): D64.9 - Anemia, unspecified (6) Paroxysmal atrial fibrillation Conclusion/Plan: She is rate controlled. We will resume her metoprolol and Eliquis. (7) Insulin dependent diabetes mellitus Conclusion/Plan: Her last A1c was 5.2% but this is likely falsely decreased that she has received transfusions in the past for her anemia. We will monitor her blood glucose and resume her home Lantus. (8) Hypothyroidism Conclusion/Plan: We will check a TSH before resuming her home Synthroid. - Lab Results Lab results reviewed: Yes Fish Bones: 01/22/22 09:44 01/22/22 09:44 - Diagnostic Imaging Results Diagnostic Imaging Results: positive: Final report reviewed Core Measures - Anticipated LOS I expect patient to be DC'd or transferred within 96 hours.: Yes - Issues Hospital Issues and Management Plan: 61-year-old female with history of sarcoma of the right lower extremity status post BKA presents due to confusion with concerns due to polypharmacy. Will plac e in observation for IV hydration, antibiotics possible UTI. Will obtain MRI if no improvement overnight. - DVT/VTE - Prophylaxis VTE/DVT Device ordered at admit?: Yes
[2022-01-22 14:50] LABS: MUDS CUTOFF CONCENTRATIONS CUTOFF CONC BELOW:
[2022-01-22 14:59] LABS: AMPHETAMINE SCREEN,URINE NEGATIVE (NEGATIVE); BARBITURATE SCREEN,UR NEGATIVE (NEGATIVE); BENZODIAZEPINES SCREEN, URINE NEGATIVE (NEGATIVE); COCAINE SCREEN URINE NEGATIVE (NEGATIVE); METHADONE SCREEN, URINE NEGATIVE (NEGATIVE); METHAMPHETAMINES SCREEN, URINE NEGATIVE (NEGATIVE); OPIATE SCREEN, URINE NEGATIVE (NEGATIVE); OXYCODONE SCREEN, URINE POSITIVE (NEGATIVE); PROPOXYPHENE SCREEN, URINE NEGATIVE (NEGATIVE); THC CANNABINOID SCREEN, URINE POSITIVE (NEGATIVE); TRICYCLIC ANTIDEPRESSANT,URINE NEGATIVE (NEGATIVE)
[2022-01-22] MEDS: LACTATED RINGERS 1,000 ML IV SCH (15:00)
[2022-01-22 15:06] LABS: B. PARAPERTUSSIS- RESP PCR PAN NOT DETECTED; B. PERTUSSIS- RESP PCR PANEL NOT DETECTED; C. PNEUMONIAE- RESP PCR PANEL NOT DETECTED; CORONAVIRUS 229E-RESP PCR NOT DETECTED; CORONAVIRUS HKU1-RESP PCR NOT DETECTED; CORONAVIRUS NL63-RESP PCR NOT DETECTED; CORONAVIRUS OC43-RESP PCR NOT DETECTED; HUMAN METAPNEUMOVIRUS NOT DETECTED; INFLUENZA A- RESP PCR PANEL NOT DETECTED; INFLUENZA B - RESP PCR PANEL NOT DETECTED; M. PNEUMONIAE- RESP PCR PANEL NOT DETECTED; PARAINFLUENZA VIRUS 1 NOT DETECTED; PARAINFLUENZA VIRUS 2 NOT DETECTED; PARAINFLUENZA VIRUS 3 NOT DETECTED; PARAINFLUENZA VIRUS 4 NOT DETECTED; RHINOVIRUS/ENTEROVIRUS NOT DETECTED; RSV- RESP PCR PANEL NOT DETECTED; SARS-CoV-2 -RESP PCR PANEL NOT DETECTED
[2022-01-22 15:45] LABS: THYROID STIMULATING HORMONE 5.02 uIU/mL (0.34-5.60)
[2022-01-22] MEDS: SODIUM CHLORIDE FLUSH 0.9% 10 ML SYRINGE IVP SCH (19:04)
[2022-01-22] MEDS: ATORVASTATIN 40 MG TABLET PO SCH (19:09)
[2022-01-22] MEDS: METOPROLOL SUCCINATE 50 MG TABLET PO SCH (20:54)
[2022-01-22] MEDS: APIXABAN 5 MG TABLET PO SCH (20:55)
[2022-01-22] MEDS: INSULIN GLARGINE 300 UNIT/3 ML PEN SUBQ SCH (20:55)
[2022-01-23] MEDS: LACTATED RINGERS 1,000 ML IV SCH (00:48)
[2022-01-23] MEDS: SODIUM CHLORIDE FLUSH 0.9% 10 ML SYRINGE IVP SCH ×3 (00:48→17:26)
[2022-01-23] MEDS: ONDANSETRON ODT 4 MG TABLET TL PRN ×2 (05:06→15:52)
[2022-01-23 05:58] LABS: BASOPHILS % (AUTO) 0.4 %; EOSINOPHILS # (AUTO) 0.6 10^3/uL (0.0-0.7); EOSINOPHILS % (AUTO) 6.6 %; HCT - HEMATOCRIT 27.5 % (37.0-47.0); HGB - HEMOGLOBIN 8.1 g/dL (12.0-16.0); LYMPHOCYTES # (AUTO) 0.6 10^3/uL (1.5-3.5); LYMPHOCYTES % (AUTO) 6.8 %; MEAN CORPUSCULAR HEMOGLOBIN 30.2 pg (27.0-31.0); MEAN CORPUSCULAR HGB CONC 29.5 g/dL (32.0-36.0); MEAN CORPUSCULAR VOLUME 102.6 fL (81.0-99.0); MONOCYTES # (AUTO) 0.6 10^3/uL (0.0-1.0); MONOCYTES % (AUTO) 7.5 %; NEUTROPHILS # (AUTO) 6.6 10^3/uL (1.5-6.6); NEUTROPHILS % (AUTO) 77.6 %; PLT - PLATELET COUNT 182 10^3/uL (130-450); RED BLOOD COUNT 2.68 10^6/uL (4.20-5.40); RED CELL DISTRIBUTION WIDTH 15.6 % (12.0-15.0); WHITE BLOOD COUNT 8.4 x10^3/uL (4.8-10.8)
[2022-01-23 06:06] LABS: CALCIUM 9.1 mg/dL (8.5-10.3); CREATININE 0.9 mg/dL (0.4-1.0); POTASSIUM 3.4 mmol/L (3.5-5.0)
[2022-01-23] MEDS: LEVOTHYROXINE 75 MCG TABLET PO SCH (06:13)
[2022-01-23] MEDS ORDERED: POTASSIUM CHLORIDE 20 MEQ TABLET PO ONE (07:21)
[2022-01-23] MEDS: cefTRIAXone 1 GM in SODIUM CHLORIDE 0.9% MINIBAG 100 ML IV SCH (08:42)
[2022-01-23] MEDS: APIXABAN 5 MG TABLET PO SCH ×2 (08:48→20:29)
[2022-01-23] MEDS: METOPROLOL SUCCINATE 50 MG TABLET PO SCH ×2 (08:48→20:29)
[2022-01-23] MEDS ORDERED: HALOPERIDOL 5 MG/ML VIAL IVP ONE (11:26)
[2022-01-23] MEDS ORDERED: HALOPERIDOL 5 MG/ML VIAL ONE (11:43)
--- NOTE | 2022-01-23 15:30 | PROVIDER PROGRESS NOTE ---
Subjective - Prog Note Date Prog Note Date: 01/23/22 - Subjective Subjective: She keeps on repeating the same answers. When asked if she understands what I am saying saying she says yes. When asked if she has difficulty expressing herself she says yes. Current Medications - Current Medications Current Medications: Active Medications Acetaminophen (Acetaminophen 325 Mg Tablet) 650 mg PO Q4HR PRN PRN Reason: Pain 1 to 4, or Fever Apixaban (Apixaban 5 Mg Tablet) 5 mg PO BID [facility] Last Admin: 01/23/22 08:48 Dose: 5 mg Atorvastatin Calcium (Atorvastatin 40 Mg Tablet) 40 mg PO 1900 [facility] Last Admin: 01/22/22 19:09 Dose: 40 mg Ceftriaxone Sodium 1 gm/ (Sodium Chloride) 100 mls @ 200 mls/hr IV DAILY [facility] Last Infusion: 01/23/22 09:20 Dose: Infused Insulin Glargine (Insulin Glargine 300 Unit/3 Ml Pen) 8 unit SUBQ QPM [facility] Last Admin: 01/22/22 20:55 Dose: 8 unit Levothyroxine Sodium (Levothyroxine 75 Mcg Tablet) 150 mcg PO QDAC [facility] Last Admin: 01/23/22 06:13 Dose: 150 mcg Metoprolol Succinate (Metoprolol Succinate 50 Mg Tablet) 50 mg PO BID [facility] Last Admin: 01/23/22 08:48 Dose: 50 mg Ondansetron HCl (Ondansetron Odt 4 Mg Tablet) 4 mg TL Q6HR PRN PRN Reason: Nausea / Vomiting Last Admin: 01/23/22 15:52 Dose: 4 mg Ondansetron HCl (Ondansetron 4 Mg/2 Ml Vial) 4 mg IVP Q6HR PRN PRN Reason: Nausea / Vomiting Sodium Chloride (Sodium Chloride Flush 0.9% 10 Ml Syringe) 10 ml IVP PRN PRN PRN Reason: NEEDED PER PROVIDER ORDERS Sodium Chloride (Sodium Chloride Flush 0.9% 10 Ml Syringe) 10 ml IVP 0100,0900,1700 [facility] Last Admin: 01/23/22 17:26 Dose: 10 ml Pregabalin [Lyrica] 150 mg PO BID 10/23/12 Levothyroxine Sodium [Synthroid] 150 mcg PO QDAC 03/22/21 ondansetron HCL [Zofran] 8 mg SL Q8HR PRN 03/22/21 Acetaminophen [Tylenol] 650 mg PO Q4H PRN 11/15/21 Apixaban [Eliquis] 5 mg PO BID 11/15/21 Atorvastatin Calcium 40 mg PO DAILY PM 11/15/21 Bisacodyl Supp [Dulcolax Supp] 10 mg IN PRN PRN 11/15/21 Insulin Glargine [Lantus Solostar] 8 unit SQ DAILY PM 11/15/21 LORazepam [Ativan] 0.5 mg PO Q6H PRN 11/15/21 Metoprolol Succinate [Toprol Xl] 50 mg PO BID 11/15/21 Mineral Oil [Mineral Oil Enema] 1 ea RC PRN PRN 11/15/21 Naloxone HCl [Narcan] 1 spray INH Q5MIN PRN 11/15/21 Oxycodone HCl [Oxycodone HCl ER] 20 mg PO BID 11/15/21 Senna [Senokot] 2 tab PO BID 11/15/21 Senna [Senokot] 2 tab PO PRN PRN 11/15/21 polyethylene glycoL 3350 [Miralax] 17 gm PO DAILY 11/15/21 polyethylene glycoL 3350 [Miralax] 17 gm PO PRN PRN 11/15/21 DULoxetine [Cymbalta] 90 mg PO DAILY 01/22/22 Oxycodone HCl [Oxycontin] 30 mg PO Q6H 01/22/22 oxyCODONE [Roxicodone] 30 mg PO Q6H 01/22/22 Folic Acid 1 mg PO DAILY 01/23/22 diphenhydrAMINE [Benadryl] 1 - 2 cap PO Q4-6H PRN MDD 4 01/23/22 Objective - Vital Signs/Intake & Output Reviewed Vital Signs: Yes Vital Signs: Vital Signs x48h Temp Pulse Pulse Resp BP BP Pulse Ox 01/23/22 12:03 36.7 C 71 18 141/68 H 99 01/23/22 10:15 81 131/64 H 01/23/22 07:44 36.3 C L 73 14 137/62 H 97 Intake & Output: Intake & Output 01/20/22 01/21/22 01/22/22 01/23/22 23:59 23:59 23:59 23:59 Intake Total 200 3150 Output Total 800 Balance 200 2350 - Objective General Appearance: positive: No acute distress, Alert Eyes Bilateral: positive: PERRL, Conjunctivae nml ENT: positive: ENT inspection nml Respiratory: positive: No respiratory distress. negative: Wheezes, Rales Cardiovascular: positive: Regular rate & rhythm. negative: Tachycardia Abdomen: positive: Non-tender, No distention. negative: Tenderness Skin: positive: Warm, Dry Extremities: positive: No pedal edema, Other (Right BKA noted.) Neurologic/Psychiatric: positive: Slurred/abnml speech (Her speech is not sl urred but she repeats the same answer to multiple questions.), Other (She is moving her extremities without any obvious deficits.) - Lab Results Fish Bones: 01/23/22 05:40 01/23/22 05:40 Other Labs: Lab Results x24hrs 01/23/22 01/23/22 01/22/22 Range/Units 05:40 05:40 15:09 WBC 8.4 (4.8-10.8) x10^3/uL RBC 2.68 L (4.20-5.40) 10^6/uL Hgb 8.1 L (12.0-16.0) g/dL Hct 27.5 L (37.0-47.0) % MCV 102.6 H (81.0-99.0) fL MCH 30.2 (27.0-31.0) pg MCHC 29.5 L (32.0-36.0) g/dL RDW 15.6 H (12.0-15.0) % Plt Count 182 (130-450) 10^3/uL MPV 10.0 (7.9-10.8) fL Neut # (Auto) 6.6 (1.5-6.6) 10^3/uL Lymph # (Auto) 0.6 L (1.5-3.5) 10^3/uL Clinch # (Auto) 0.6 (0.0-1.0) 10^3/uL Eos # (Auto) 0.6 (0.0-0.7) 10^3/uL Baso # (Auto) 0.0 (0.0-0.1) 10^3/uL Absolute Nucleated RBC 0.00 x10^3/uL Nucleated RBC % 0.0 /100WBC Sodium 139 (135-145) mmol/L Potassium 3.4 L (3.5-5.0) mmol/L Chloride 101 (101-111) mmol/L Carbon Dioxide 29 (21-32) mmol/L Anion Gap 9.0 (6-13) BUN 11 (6-20) mg/dL Creatinine 0.9 (0.4-1.0) mg/dL Estimated GFR (MDRD) 63 L (>89) Glucose 133 H (70-100) mg/dL Calcium 9.1 (8.5-10.3) mg/dL Ammonia (7-35) umol/L Vitamin B12 411 (180-914) pg/mL TSH 5.02 (0.34-5.60) uIU/mL 01/22/22 Range/Units 15:09 WBC (4.8-10.8) x10^3/uL RBC (4.20-5.40) 10^6/uL Hgb (12.0-16.0) g/dL Hct (37.0-47.0) % MCV (81.0-99.0) fL MCH (27.0-31.0) pg MCHC (32.0-36.0) g/dL RDW (12.0-15.0) % Plt Count (130-450) 10^3/uL MPV (7.9-10.8) fL Neut # (Auto) (1.5-6.6) 10^3/uL Lymph # (Auto) (1.5-3.5) 10^3/uL Clinch # (Auto) (0.0-1.0) 10^3/uL Eos # (Auto) (0.0-0.7) 10^3/uL Baso # (Auto) (0.0-0.1) 10^3/uL Absolute Nucleated RBC x10^3/uL Nucleated RBC % /100WBC Sodium (135-145) mmol/L Potassium (3.5-5.0) mmol/L Chloride (101-111) mmol/L Carbon Dioxide (21-32) mmol/L Anion Gap (6-13) BUN (6-20) mg/dL Creatinine (0.4-1.0) mg/dL Estimated GFR (MDRD) (>89) Glucose (70-100) mg/dL Calcium (8.5-10.3) mg/dL Ammonia < 10.0 (7-35) umol/L Vitamin B12 (180-914) pg/mL TSH (0.34-5.60) uIU/mL Assessment/Plan - Problem List (1) Altered mental status Impression: She appears more alert today but still has difficulty answering questions. Her answers remain repetitive and it appears she is struggling to express herself and has expressive aphasia. She does not have any obvious motor deficits to suggest a stroke. Her TSH was within normal limits. Ammonia was also within normal limits. There is no evidence of vitamin B12 or folate deficiency. Her pupils are dilated but reactive to light and I would not suspect this would be the case if this was related to opioid use and I would have expected her to show significant improvement by now. CT the head showed no acute normalities. We did attempt to obtain an MRI today for further evaluation but she was unable to tolerate this due to claustrophobia. We did try Haldol which did not help. At this time, we will continue to hold off on sedatives including her home opiates and Lyrica. If there is no improvement we will look to obtain an MRI once again tomorrow and will consider the use of Ativan if necessary. We will also consider LP. Continue antibiotics for possible UTI. (2) UTI (urinary tract infection) Impression: Urine cultures growing gram-negative rods. Given her initial leukocytosis and inability to express if she had symptoms, we are treating her empirically with ceftriaxone IV. We will follow-up urine culture. (3) Squamous cell carcinoma of right lower leg Impression: I was able to review the records from the [facility]. She was hospitalized there for about 6 weeks and underwent a right BKA due to right lower extremity squamous cell carcinoma and chronic osteomyelitis. She is reportedly receiving treatment with chemotherapy and is followed by Dr. Bess. We have requested her most recent oncologic records but we have not yet received them. (4) Status post below knee amputation of right lower extremity Impression: She is status post amputation in September of this year for the squamous cell carcinoma of the right lower extremity. We are continuing to hold her home Lyrica and oxycodone given her altered mental status. (5) Anemia Impression: She does have chronic anemia likely related to her malignancy and chemotherapy. Hemoglobin did decrease to 8.1 but a component of this is likely dilutional. There has been no obvious signs of bleeding. We will continue with daily CBC and transfuse as needed for goal hemoglobin greater than 7. She has required transfusions in the past for anemia. We will check iron studies. Qualifiers: Anemia type: unspecified type Qualified Code(s): D64.9 - Anemia, unspecified (6) Paroxysmal atrial fibrillation Impression: She remains rate controlled. We will continue metoprolol and Eliquis. (7) Insulin dependent diabetes mellitus Impression: Her blood glucose remains well controlled on the 8 units of Lantus in the evening which we will continue. (8) Hypothyroidism Impression: Her TSH was within normal limits. Continue Synthroid.
[2022-01-23] MEDS ORDERED: METOPROLOL 5 MG/5 ML VIAL IVP STA (16:47)
[2022-01-23] MEDS: INSULIN GLARGINE 300 UNIT/3 ML PEN SUBQ SCH (20:29)
[2022-01-23] MEDS: ATORVASTATIN 40 MG TABLET PO SCH (20:29)
[2022-01-24] MEDS: ACETAMINOPHEN 325 MG TABLET PO PRN (00:19)
[2022-01-24] MEDS: SODIUM CHLORIDE FLUSH 0.9% 10 ML SYRINGE IVP SCH ×3 (01:34→16:08)
[2022-01-24 06:15] LABS: BASOPHILS # (AUTO) 0.1 10^3/uL (0.0-0.1); BASOPHILS % (AUTO) 0.5 %; EOSINOPHILS # (AUTO) 0.9 10^3/uL (0.0-0.7); EOSINOPHILS % (AUTO) 8.4 %; HCT - HEMATOCRIT 31.9 % (37.0-47.0); HGB - HEMOGLOBIN 9.3 g/dL (12.0-16.0); LYMPHOCYTES # (AUTO) 1.4 10^3/uL (1.5-3.5); LYMPHOCYTES % (AUTO) 12.5 %; MEAN CORPUSCULAR HEMOGLOBIN 29.8 pg (27.0-31.0); MEAN CORPUSCULAR HGB CONC 29.2 g/dL (32.0-36.0); MEAN CORPUSCULAR VOLUME 102.2 fL (81.0-99.0); MONOCYTES # (AUTO) 0.9 10^3/uL (0.0-1.0); MONOCYTES % (AUTO) 8.6 %; NEUTROPHILS # (AUTO) 7.4 10^3/uL (1.5-6.6); PLT - PLATELET COUNT 196 10^3/uL (130-450); RED BLOOD COUNT 3.12 10^6/uL (4.20-5.40); RED CELL DISTRIBUTION WIDTH 15.5 % (12.0-15.0); WHITE BLOOD COUNT 10.8 x10^3/uL (4.8-10.8)
[2022-01-24] MEDS: LEVOTHYROXINE 75 MCG TABLET PO SCH (06:49)
[2022-01-24 06:58] LABS: CALCIUM 9.4 mg/dL (8.5-10.3); CREATININE 0.9 mg/dL (0.4-1.0); POTASSIUM 3.3 mmol/L (3.5-5.0)
[2022-01-24] MEDS: METOPROLOL SUCCINATE 50 MG TABLET PO SCH ×2 (08:26→20:50)
[2022-01-24] MEDS: APIXABAN 5 MG TABLET PO SCH (08:26)
[2022-01-24] MEDS: POTASSIUM CHLORIDE 20 MEQ/15 ML UDC PO SCH (08:26)
[2022-01-24] MEDS: cefTRIAXone 1 GM in SODIUM CHLORIDE 0.9% MINIBAG 100 ML IV SCH (08:26)
--- NOTE | 2022-01-24 11:27 | PROVIDER PROGRESS NOTE ---
Subjective - Prog Note Date Prog Note Date: 01/24/22 - Subjective Subjective: She states she still feels confused but feels like she is improving. Still has difficulty expressing what she wants to say. States her pain is relatively controlled. Most of it is in her left leg. Current Medications - Current Medications Current Medications: Active Medications Acetaminophen (Acetaminophen 325 Mg Tablet) 650 mg PO Q4HR PRN PRN Reason: Pain 1 to 4, or Fever Last Admin: 01/24/22 00:19 Dose: 650 mg Atorvastatin Calcium (Atorvastatin 40 Mg Tablet) 40 mg PO 1900 [facility] Last Admin: 01/23/22 20:29 Dose: 40 mg Ceftriaxone Sodium 1 gm/ (Sodium Chloride) 100 mls @ 200 mls/hr IV DAILY [facility] Last Infusion: 01/24/22 09:00 Dose: Infused Insulin Glargine (Insulin Glargine 300 Unit/3 Ml Pen) 8 unit SUBQ QPM [facility] Last Admin: 01/23/22 20:29 Dose: 8 unit Levothyroxine Sodium (Levothyroxine 75 Mcg Tablet) 150 mcg PO QDAC [facility] Last Admin: 01/24/22 06:49 Dose: 150 mcg Lorazepam (Lorazepam 2 Mg/Ml Vial) 0.5 mg IVP ONCE PRN PRN Reason: Anxiety Stop: 01/25/22 11:38 Metoprolol Succinate (Metoprolol Succinate 50 Mg Tablet) 50 mg PO BID [facility] Last Admin: 01/24/22 08:26 Dose: 50 mg Ondansetron HCl (Ondansetron Odt 4 Mg Tablet) 4 mg TL Q6HR PRN PRN Reason: Nausea / Vomiting Last Admin: 01/23/22 15:52 Dose: 4 mg Ondansetron HCl (Ondansetron 4 Mg/2 Ml Vial) 4 mg IVP Q6HR PRN PRN Reason: Nausea / Vomiting Potassium Chloride (Potassium Chloride 20 Meq/15 Ml Udc) 20 meq PO DAILYWM [facility] Last Admin: 01/24/22 08:26 Dose: 20 meq Sodium Chloride (Sodium Chloride Flush 0.9% 10 Ml Syringe) 10 ml IVP PRN PRN PRN Reason: NEEDED PER PROVIDER ORDERS Sodium Chloride (Sodium Chloride Flush 0.9% 10 Ml Syringe) 10 ml IVP 0100,0900,1700 [facility] Last Admin: 01/24/22 08:26 Dose: 10 ml Pregabalin [Lyrica] 150 mg PO BID 10/23/12 Levothyroxine Sodium [Synthroid] 150 mcg PO QDAC 03/22/21 ondansetron HCL [Zofran] 8 mg SL Q8HR PRN 03/22/21 Acetaminophen [Tylenol] 650 mg PO Q4H PRN 11/15/21 Apixaban [Eliquis] 5 mg PO BID 11/15/21 Atorvastatin Calcium 40 mg PO DAILY PM 11/15/21 Bisacodyl Supp [Dulcolax Supp] 10 mg [place] PRN PRN 11/15/21 Insulin Glargine [Lantus Solostar] 8 unit SQ DAILY PM 11/15/21 LORazepam [Ativan] 0.5 mg PO Q6H PRN 11/15/21 Metoprolol Succinate [Toprol Xl] 50 mg PO BID 11/15/21 Mineral Oil [Mineral Oil Enema] 1 ea RC PRN PRN 11/15/21 Naloxone HCl [Narcan] 1 spray INH Q5MIN PRN 11/15/21 Oxycodone HCl [Oxycodone HCl ER] 20 mg PO BID 11/15/21 Senna [Senokot] 2 tab PO BID 11/15/21 Senna [Senokot] 2 tab PO PRN PRN 11/15/21 polyethylene glycoL 3350 [Miralax] 17 gm PO DAILY 11/15/21 polyethylene glycoL 3350 [Miralax] 17 gm PO PRN PRN 11/15/21 DULoxetine [Cymbalta] 90 mg PO DAILY 01/22/22 oxyCODONE [Roxicodone] 30 mg PO Q6H 01/22/22 Folic Acid 1 mg PO DAILY 01/23/22 diphenhydrAMINE [Benadryl] 1 - 2 cap PO Q4-6H PRN MDD 4 01/23/22 Objective - Vital Signs/Intake & Output Reviewed Vital Signs: Yes Vital Signs: Vital Signs x48h Temp Pulse Resp BP Pulse Ox 01/24/22 07:23 36.4 C L 65 16 129/64 99 01/24/22 05:35 36.5 C 65 16 117/50 L 99 Intake & Output: Intake & Output 01/21/22 01/22/22 01/23/22 01/24/22 23:59 23:59 23:59 23:59 Intake Total 200 3740 200 Output Total 1600 Balance 200 2140 200 - Objective General Appearance: positive: No acute distress, Alert Eyes Bilateral: positive: Normal inspection, Conjunctivae nml ENT: positive: ENT inspection nml Respiratory: positive: No respiratory distress. negative: Wheezes, Rales Cardiovascular: positive: Regular rate & rhythm. negative: Tachycardia Abdomen: positive: No distention. negative: Tenderness Skin: positive: Warm, Dry Extremities: positive: No pedal edema, Other (Right BKA. There is a palpable mass about 10 x 5 cm over the posterior aspect of the left leg superior to the knee.) Neurologic/Psychiatric: positive: Motor nml (She moving all 4 extremities and does not appear to have any focal deficit), Other (She is able to perform since yesterday but her speech is still quite delayed. She is more interactive. Still cannot answer certain questions like where she is. She was able to tell me the time on the clock.). negative: Disoriented to person - Lab Results Fish Bones: 01/24/22 05:32 01/24/22 05:32 Other Labs: Lab Results x24hrs 01/24/22 01/24/22 01/24/22 Range/Units 05:32 05:32 05:32 WBC 10.8 (4.8-10.8) x10^3/uL RBC 3.12 L (4.20-5.40) 10^6/uL Hgb 9.3 L (12.0-16.0) g/dL Hct 31.9 L (37.0-47.0) % MCV 102.2 H (81.0-99.0) fL MCH 29.8 (27.0-31.0) pg MCHC 29.2 L (32.0-36.0) g/dL RDW 15.5 H (12.0-15.0) % Plt Count 196 (130-450) 10^3/uL MPV 10.0 (7.9-10.8) fL Neut # (Auto) 7.4 H (1.5-6.6) 10^3/uL Lymph # (Auto) 1.4 L (1.5-3.5) 10^3/uL [place] # (Auto) 0.9 (0.0-1.0) 10^3/uL Eos # (Auto) 0.9 H (0.0-0.7) 10^3/uL Baso # (Auto) 0.1 (0.0-0.1) 10^3/uL Absolute Nucleated RBC 0.00 x10^3/uL Nucleated RBC % 0.0 /100WBC Sodium 136 (135-145) mmol/L Potassium 3.3 L (3.5-5.0) mmol/L Chloride 99 L (101-111) mmol/L Carbon Dioxide 30 (21-32) mmol/L Anion Gap 7.0 (6-13) BUN 9 (6-20) mg/dL Creatinine 0.9 (0.4-1.0) mg/dL Estimated GFR (MDRD) 63 L (>89) Glucose 111 H (70-100) mg/dL Calcium 9.4 (8.5-10.3) mg/dL Iron 75 (28-170) ug/dL TIBC 167 L (250-450) ug/dL % Saturation 45 (20-50) % Transferrin 119 L (192-382) mg/dL Ferritin 137.6 (11.0-306.8) ng/mL Assessment/Plan - Problem List (1) Altered mental status Impression: She does appear to be slowly improving. She is able to participate a little conversation but still has difficulty answering some simple questions like where she is. She is able to tell me her full name, date of , and the names of her daughter. She was able to tell me the time on the clock. When asked if it is larger an elephant or an ant she was able to answer correctly. I am still not clear on what is causing her expressive aphasia/change in mental status. CT was unremarkable on admission. We could not obtain MRI yesterday as she did not tolerate this but she is agreeable to trying again today and we will try Ativan if necessary to keep her calm. Do not suspect a stroke given she has no focal deficits although it still is possible. We will hold her Eliquis as she may need LP if she does not continue to improve. We are continuing to hold her home sedatives but we will look to resume the opiates and Lyrica at low-dose to prevent withdrawal. (2) UTI (urinary tract infection) Impression: Urine culture is growing Klebsiella which is pansensitive. We will switch her to oral vantin in the morning. (3) Squamous cell carcinoma of right lower leg Impression: I was able to review the records from the [facility]. She was hospitalized there for about 6 weeks and underwent a right BKA due to right lower extremity squamous cell carcinoma and chronic osteomyelitis. She is reportedly receiving treatment with chemotherapy and is followed by Dr. Bess. (4) Status post below knee amputation of right lower extremity Impression: She is status post amputation in September of this year for the squamous cell carcinoma of the right lower extremity. We are continuing to hold her home Lyrica and oxycodone given her altered mental status. (5) Anemia Impression: She does have chronic anemia likely related to her malignancy and chemotherapy. Her hemoglobin has been stable and her iron studies were suggestive of anemia of chronic disease. There has been no obvious signs of bleeding. We will continue with daily CBC and transfuse as needed for goal hemoglobin greater than 7. She has required transfusions in the past for anemia. Qualifiers: Anemia type: unspecified type Qualified Code(s): D64.9 - Anemia, unspecified (6) Paroxysmal atrial fibrillation Impression: She remains rate controlled. We will continue metoprolol. We will discontinue Eliquis as she may need a lumbar puncture if she does not improve from a cognitive standpoint. (7) Insulin dependent diabetes mellitus Impression: Her blood glucose remains well controlled on the 8 units of Lantus in the evening which we will continue. (8) Hypothyroidism Impression: Her TSH was within normal limits. Continue Synthroid.
[2022-01-24] MEDS ORDERED: LORazepam 2 MG/ML VIAL IVP PRN (11:39)
[2022-01-24] MEDS ORDERED: GADOBUTROL 10 MMOL/10 ML VIAL ONE (15:23)
[2022-01-24] MEDS ORDERED: GADOBUTROL 10 MMOL/10 ML VIAL IVP ONE (16:20)
[2022-01-24] MEDS: ATORVASTATIN 40 MG TABLET PO SCH (19:45)
[2022-01-24] MEDS: INSULIN GLARGINE 300 UNIT/3 ML PEN SUBQ SCH (20:50)
[2022-01-24] MEDS ORDERED: PREGABALIN 25 MG CAPSULE PO SCH (21:00)
[2022-01-24] MEDS ORDERED: oxyCODONE 5 MG TABLET PO STA (22:11)
[2022-01-24] MEDS ORDERED: oxyCODONE 5 MG TABLET PO PRN (22:11)
[2022-01-25] MEDS: SODIUM CHLORIDE FLUSH 0.9% 10 ML SYRINGE IVP SCH ×3 (01:27→16:39)
[2022-01-25 06:17] LABS: LYMPHOCYTES % (AUTO) 12.9 %; MONOCYTES % (AUTO) 8.9 %; RED CELL DISTRIBUTION WIDTH 15.4 % (12.0-15.0)
[2022-01-25 06:22] LABS: BASOPHILS % (AUTO) 0.3 %; EOSINOPHILS % (AUTO) 8.8 %; HCT - HEMATOCRIT 29.8 % (37.0-47.0); HGB - HEMOGLOBIN 8.9 g/dL (12.0-16.0); MEAN CORPUSCULAR HGB CONC 29.9 g/dL (32.0-36.0); MEAN CORPUSCULAR VOLUME 100.3 fL (81.0-99.0); PLT - PLATELET COUNT 207 10^3/uL (130-450); RED BLOOD COUNT 2.97 10^6/uL (4.20-5.40); WHITE BLOOD COUNT 12.1 x10^3/uL (4.8-10.8)
[2022-01-25 06:26] LABS: CALCIUM 9.4 mg/dL (8.5-10.3); CREATININE 0.9 mg/dL (0.4-1.0); POTASSIUM 3.2 mmol/L (3.5-5.0)
[2022-01-25 06:27] LABS: ABNORMAL LYMPHS % (MANUAL) 0 %; BAND NEUTROPHILS % (MANUAL) 0 %
[2022-01-25] MEDS: LEVOTHYROXINE 75 MCG TABLET PO SCH (06:41)
[2022-01-25 06:43] LABS: DIFFERENTIAL COMMENT MANUAL DIFFERENTIAL; EOSINOPHILS # (MANUAL) 0.5 10^3/uL (0-0.7); LYMPHOCYTES # (MANUAL) 0.5 10^3/uL (1.5-3.5); LYMPHOCYTES % (MANUAL) 4 %; MONOCYTES # (MANUAL) 0.5 10^3/uL (0.0-1.0); NEUTROPHILS # (MANUAL) 10.6 10^3/uL (1.5-6.6); PLATELET ESTIMATE, MANUAL NORMAL (130-450,000) (NORMAL); RBC MORPHOLOGY (MULTIPLE) NORMAL APPEARANCE (NORMAL)
--- NOTE | 2022-01-25 08:09 | MRI Report ---
PROCEDURE: Brain W/WO INDICATIONS: Altered mental status. History of cancer. CONTRAST: IV CONTRAST: Gadavist ml: 10 TECHNIQUE: Noncontrast axial T1 spin echo, axial T2 fast spin echo, sagittal and axial FLAIR, coronal T2 fast sp in echo, axial gradient echo, axial diffusion and ADC through the brain. After the administration of contrast, axial and coronal T1 spin echo with fat saturation through the brain. COMPARISON: Correlation is made with prior head CT, 02/09/2022 FINDINGS: Image quality: Motion artifact is noted. CSF spaces: Basal cisterns are patent. No extra-axial fluid collections. Ventricles are normal in size and shape. Brain: No midline shift. No intracranial bleeds or masses. No abnormal intracranial enhancement. There is cerebral volume loss for age. There is periventricular white matter chronic small vessel is chemic change. The brainstem appears normal. Diffusion-weighted images demonstrate no acute ischemi c insults. No chronic ischemic insults. Normal intravascular flow voids are present. Skull and face: Calvarial marrow is normal in signal. Orbits appear normal. Sinuses: Sinuses and mastoids appear clear. IMPRESSION: Motion limited study, without findings of acute or subacute infarction. No masses or abnormal enhancement can be seen. Reviewed by: Ja Olson MD on 01/25/2022 8:08 AM PDT Approved by: Ja Olson MD on 01/25/2022 8:08 AM PDT Station ID: [id number]
[2022-01-25] MEDS: POTASSIUM CHLORIDE 20 MEQ/15 ML UDC PO SCH (08:58)
[2022-01-25] MEDS: PREGABALIN 100 MG CAPSULE PO SCH ×2 (09:01→20:58)
[2022-01-25] MEDS: PREGABALIN 25 MG CAPSULE PO SCH ×2 (09:01→20:59)
[2022-01-25] MEDS: METOPROLOL SUCCINATE 50 MG TABLET PO SCH ×2 (09:02→20:58)
[2022-01-25] MEDS: CEFPODOXIME PROXETIL 100 MG TABLET PO SCH ×2 (09:02→20:58)
[2022-01-25] MEDS: oxyCODONE ER 10 MG TABLET PO SCH ×2 (09:02→20:59)
--- NOTE | 2022-01-25 14:58 | PROVIDER PROGRESS NOTE ---
Subjective - Prog Note Date Prog Note Date: 01/25/22 - Subjective Subjective: She feels much improved today. She is able to communicate and tells me that she did have difficulty expressing herself for these past few days. She feels back to her baseline now. States her pain is controlled. Current Medications - Current Medications Current Medications: Active Medications Acetaminophen (Acetaminophen 325 Mg Tablet) 650 mg PO Q4HR PRN PRN Reason: Pain 1 to 4, or Fever Last Admin: 01/24/22 00:19 Dose: 650 mg Atorvastatin Calcium (Atorvastatin 40 Mg Tablet) [address] [facility] Last Admin: 01/24/22 19:45 Dose: 40 mg Cefuroxime Axetil (Cefpodoxime Proxetil 100 Mg Tablet) [address] [facility] Last Admin: 01/25/22 09:02 Dose: 100 mg Insulin Glargine (Insulin Glargine 300 Unit/3 Ml Pen) [address] [facility] Last Admin: 01/24/22 20:50 Dose: 8 unit Levothyroxine Sodium (Levothyroxine 75 Mcg Tablet) [address] [facility] Last Admin: 01/25/22 06:41 Dose: 150 mcg Metoprolol Succinate (Metoprolol Succinate 50 Mg Tablet) [address] [facility] Last Admin: 01/25/22 09:02 Dose: 50 mg Ondansetron HCl (Ondansetron Odt 4 Mg Tablet) 4 mg TL Q6HR PRN PRN Reason: Nausea / Vomiting Last Admin: 01/23/22 15:52 Dose: 4 mg Ondansetron HCl (Ondansetron 4 Mg/2 Ml Vial) 4 mg IVP Q6HR PRN PRN Reason: Nausea / Vomiting Oxycodone HCl (Oxycodone Er 10 Mg Tablet) [address] [facility] Last Admin: 01/25/22 09:02 Dose: 20 mg Oxycodone HCl (Oxycodone 5 Mg Tablet) 10 mg PO Q4HR PRN PRN Reason: PAIN Stop: 01/25/22 22:10 Potassium Chloride (Potassium Chloride 20 Meq/15 Ml Udc) [address] [facility] Pregabalin (Pregabalin 100 Mg Capsule) [address] [facility] Last Admin: 01/25/22 09:01 Dose: 100 mg Pregabalin (Pregabalin 25 Mg Capsule) [address] [facility] Last Admin: 01/25/22 09:01 Dose: 50 mg Sodium Chloride (Sodium Chloride Flush 0.9% 10 Ml Syringe) 10 ml IVP PRN PRN PRN Reason: NEEDED PER PROVIDER ORDERS Sodium Chloride (Sodium Chloride Flush 0.9% 10 Ml Syringe) 10 ml IVP 0100,0900,1700 [facility] Last Admin: 01/25/22 09:02 Dose: 10 ml Pregabalin [Lyrica] 150 mg PO BID 10/23/12 Levothyroxine Sodium [Synthroid] 150 mcg PO QDAC 03/22/21 ondansetron HCL [Zofran] 8 mg SL Q8HR PRN 03/22/21 Acetaminophen [Tylenol] 650 mg PO Q4H PRN 11/15/21 Apixaban [Eliquis] 5 mg PO BID 11/15/21 Atorvastatin Calcium 40 mg PO DAILY PM 11/15/21 Bisacodyl Supp [Dulcolax Supp] 10 mg [place] PRN PRN 11/15/21 Insulin Glargine [Lantus Solostar] 8 unit SQ DAILY PM 11/15/21 LORazepam [Ativan] 0.5 mg PO Q6H PRN 11/15/21 Metoprolol Succinate [Toprol Xl] 50 mg PO BID 11/15/21 Mineral Oil [Mineral Oil Enema] 1 ea RC PRN PRN 11/15/21 Naloxone HCl [Narcan] 1 spray INH Q5MIN PRN 11/15/21 Oxycodone HCl [Oxycodone HCl ER] 20 mg PO BID 11/15/21 Senna [Senokot] 2 tab PO BID 11/15/21 Senna [Senokot] 2 tab PO PRN PRN 11/15/21 polyethylene glycoL 3350 [Miralax] 17 gm PO DAILY 11/15/21 polyethylene glycoL 3350 [Miralax] 17 gm PO PRN PRN 11/15/21 DULoxetine [Cymbalta] 90 mg PO DAILY 01/22/22 oxyCODONE [Roxicodone] 30 mg PO Q6H 01/22/22 Folic Acid 1 mg PO DAILY 01/23/22 diphenhydrAMINE [Benadryl] 1 - 2 cap PO Q4-6H PRN MDD 4 01/23/22 Objective - Vital Signs/Intake & Output Reviewed Vital Signs: Yes Vital Signs: Vital Signs x48h Temp Pulse Resp BP BP Pulse Ox 01/25/22 09:00 74 01/25/22 08:56 125/68 01/25/22 07:50 37.2 C 16 115/83 H 97 Intake & Output: Intake & Output 01/22/22 01/23/22 01/24/22 01/25/22 23:59 23:59 23:59 23:59 Intake Total 200 3740 500 240 Output Total 0704 541 1886 Balance 200 2140 200 -1860 - Objective General Appearance: positive: No acute distress, Alert Eyes Bilateral: positive: Normal inspection, PERRL, Conjunctivae nml ENT: positive: ENT inspection nml Neck: positive: Nml inspection Respiratory: positive: No respiratory distress. negative: Wheezes, Rales Cardiovascular: positive: Regular rate & rhythm. negative: Tachycardia Abdomen: positive: Non-tender, No distention. negative: Tenderness Skin: positive: Warm, Dry Extremities: positive: No pedal edema, Other (Right BKA. There is a palpable mass about 10 x 5 cm over the posterior aspect of the left leg superior to the knee.) Neurologic/Psychiatric: positive: Motor nml, Disoriented to time, Other (She is oriented to self and location. Oriented to year but not to month. She is able to answer questions appropriately and in a timely fashion.). negative: Disoriented to person, Disoriented to place, Facial droop, Slurred/abnml speech - Lab Results Fish Bones: 01/25/22 05:55 01/25/22 05:55 Other Labs: Lab Results x24hrs 01/25/22 01/25/22 Range/Units 05:55 05:55 WBC 12.1 H (4.8-10.8) x10^3/uL RBC 2.97 L (4.20-5.40) 10^6/uL Hgb 8.9 L (12.0-16.0) g/dL Hct 29.8 L (37.0-47.0) % MCV 100.3 H (81.0-99.0) fL MCH 30.0 (27.0-31.0) pg MCHC 29.9 L (32.0-36.0) g/dL RDW 15.4 H (12.0-15.0) % Plt Count 207 (130-450) 10^3/uL MPV 10.0 (7.9-10.8) fL Neut # (Auto) Not Reportable Lymph # (Auto) Not Reportable Major # (Auto) Not Reportable Eos # (Auto) Not Reportable Baso # (Auto) Not Reportable Absolute Nucleated RBC Not Reportable Total Counted 100 Band Neuts % (Manual) 0 (0 - 10) % Abnorm Lymph % (Manual) 0 % Nucleated RBC % Not Reportable Neutrophils # (Manual) 10.6 H (1.5-6.6) 10^3/uL Lymphocytes # (Manual) 0.5 L (1.5-3.5) 10^3/uL Monocytes # (Manual) 0.5 (0.0-1.0) 10^3/uL Eosinophils # (Manual) 0.5 (0-0.7) 10^3/uL Basophils # (Manual) 0.0 (0-0.1) 10^3/uL Differential Comment MANUAL DIFFERENTIAL Platelet Estimate NORMAL (130-450,000) (NORMAL) RBC Morph Micro Appear NORMAL APPEARANCE (NORMAL) Sodium 137 (135-145) mmol/L Potassium 3.2 L (3.5-5.0) mmol/L Chloride 101 (101-111) mmol/L Carbon Dioxide 30 (21-32) mmol/L Anion Gap 6.0 (6-13) BUN 9 (6-20) mg/dL Creatinine 0.9 (0.4-1.0) mg/dL Estimated GFR (MDRD) 63 L (>89) Glucose 121 H (70-100) mg/dL Calcium 9.4 (8.5-10.3) mg/dL Assessment/Plan - Problem List (1) Altered mental status Impression: She has had significant improvement in her symptoms as not able to communicate and answer questions appropriately. She appears to be back to her baseline. MRI yesterday showed no acute abnormalities although this was limited by motion artifact. We have resumed her home oxycodone and Lyrica. I do not have a clear explanation for why she difficulties expressive aphasia on admission. We will hold off on lumbar puncture given her improvement. If she remains stable throughout the evening we will plan for discharge home tomorrow. (2) UTI (urinary tract infection) Impression: Urine culture grew Klebsiella and Proteus which are both pansensitive. We will continue oral Vantin which was started for a total of 7 days. (3) Squamous cell carcinoma of right lower leg Impression: I was able to review the records from the [facility]. She was hospitalized there for about 6 weeks and underwent a right BKA due to right lower extremity squamous cell carcinoma and chronic osteomyelitis. She is reportedly receiving treatment with immunotherapy and is followed by Dr. Bess. We have resumed her home oxycodone for pain. (4) Status post below knee amputation of right lower extremity Impression: She is status post amputation in September of this year for the squamous cell carcinoma of the right lower extremity. We have resumed her home Lyrica and oxycodone. (5) Anemia Impression: She does have chronic anemia likely related to her malignancy and chronic disease. Her hemoglobin has been stable and her iron studies were suggestive of anemia of chronic disease. There has been no obvious signs of bleeding. We will continue with daily CBC and transfuse as needed for goal hemoglobin greater than 7. She has required transfusions in the past for anemia. Qualifiers: Anemia type: unspecified type Qualified Code(s): D64.9 - Anemia, unsp ecified (6) Paroxysmal atrial fibrillation Impression: She remains rate controlled. We will continue metoprolol. We will resume her Eliquis tomorrow as long as she continues to improve given we will not be obtaining a lumbar puncture. (7) Insulin dependent diabetes mellitus Impression: Her blood glucose remains well controlled on the 8 units of Lantus in the evening which we will continue. (8) Hypothyroidism Impression: Her TSH was within normal limits. Continue Synthroid.
[2022-01-25] MEDS: ATORVASTATIN 40 MG TABLET PO SCH (19:16)
[2022-01-25] MEDS: INSULIN GLARGINE 300 UNIT/3 ML PEN SUBQ SCH (21:01)
[2022-01-26] MEDS: SODIUM CHLORIDE FLUSH 0.9% 10 ML SYRINGE IVP SCH ×2 (00:17→08:19)
[2022-01-26] MEDS: ACETAMINOPHEN 325 MG TABLET PO PRN (05:28)
[2022-01-26] MEDS: LEVOTHYROXINE 75 MCG TABLET PO SCH (06:13)
[2022-01-26 06:24] LABS: BASOPHILS % (AUTO) 0.4 %; EOSINOPHILS % (AUTO) 11.6 %; HCT - HEMATOCRIT 32.3 % (37.0-47.0); HGB - HEMOGLOBIN 9.4 g/dL (12.0-16.0); MEAN CORPUSCULAR HEMOGLOBIN 29.7 pg (27.0-31.0); MEAN CORPUSCULAR HGB CONC 29.1 g/dL (32.0-36.0); MEAN CORPUSCULAR VOLUME 102.2 fL (81.0-99.0); MEAN PLATELET VOLUME 9.7 fL (7.9-10.8); NEUTROPHILS % (AUTO) 60.9 %; PLT - PLATELET COUNT 206 10^3/uL (130-450); RED BLOOD COUNT 3.16 10^6/uL (4.20-5.40); RED CELL DISTRIBUTION WIDTH 15.5 % (12.0-15.0); WHITE BLOOD COUNT 14.1 x10^3/uL (4.8-10.8)
[2022-01-26 06:27] LABS: ABNORMAL LYMPHS % (MANUAL) 0 %; BAND NEUTROPHILS % (MANUAL) 0 %
[2022-01-26 06:31] LABS: CALCIUM 9.6 mg/dL (8.5-10.3); POTASSIUM 3.6 mmol/L (3.5-5.0)
[2022-01-26 06:43] LABS: DIFFERENTIAL COMMENT MANUAL DIFFERENTIAL; LYMPHOCYTES # (MANUAL) 1.8 10^3/uL (1.5-3.5); LYMPHOCYTES % (MANUAL) 13 %; MONOCYTES # (MANUAL) 1.3 10^3/uL (0.0-1.0); PLATELET ESTIMATE, MANUAL NORMAL (130-450,000) (NORMAL); RBC MORPHOLOGY (MULTIPLE) NORMAL APPEARANCE (NORMAL)
[2022-01-26] MEDS ORDERED: POTASSIUM CHLORIDE 20 MEQ/15 ML UDC PO SCH (08:00)
[2022-01-26] MEDS: PREGABALIN 25 MG CAPSULE PO SCH (08:19)
[2022-01-26] MEDS: oxyCODONE ER 10 MG TABLET PO SCH (08:19)
[2022-01-26] MEDS: PREGABALIN 100 MG CAPSULE PO SCH (08:19)
[2022-01-26] MEDS: CEFPODOXIME PROXETIL 100 MG TABLET PO SCH (08:19)
[2022-01-26] MEDS: METOPROLOL SUCCINATE 50 MG TABLET PO SCH (08:20)
[2022-01-26] MEDS ORDERED: LACTATED RINGERS 1,000 ML IV ONE (08:37)
[2022-01-26] MEDS ORDERED: LORazepam 0.5 MG TABLET PO PRN (10:52)
--- NOTE | 2022-01-26 10:56 | Discharge Plan ---
Discharge Plan Problem Reviewed?: Yes Disposition: Home Health Service Condition: Stable Diet: Diabetic Activity Restrictions: Activity as Tolerated Health Concerns: You were admitted to the hospital because you were confused and had difficulty speaking. A CT scan of your head showed no abnormalities. We obtained MRI of your brain which showed no evidence of stroke or mass. There was concern for possible urinary tract infection so we treated you with antibiotics while you are hospitalized. We do not believe this was the cause of your confusion and difficulty speaking. Fortunately, you have had complete resolution of your symptoms and you are back to your baseline. I do not believe that your pain medication or Lyrica were the cause of this. At this time we do not have a clear explanation of what happened. Plan of Treatment: There are no changes made to your medications. Please continue to follow-up with your oncologist as scheduled. If you have recurrent episodes of this confusion this may potentially be related to the immunotherapy although at this time it is felt to be less likely but you should discuss this with your oncologist. Assessment: The patient expressed understanding of the treatment plan. Additional Instructions or Follow Up instructions: Please follow-up with your primary care physician in 1 to 2 weeks. Please continue to follow-up with your oncologist as scheduled. Please return to the emergency department if you develop any confusion or difficulty speaking again. We recommend that you follow-up with palliative care on outpatient basis and your primary care physician can place a referral. No Smoking: If you smoke, Please STOP! Call for help. Follow-up with: Rosie Franklin MD [Primary Care Provider] -
--- NOTE | 2022-01-26 12:59 | DISCHARGE SUMMARY ---
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 UTI - resolved. Leukocytosis - ongoing. 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 Status post below knee amputation of right lower extremity - stable. Anemia - stable. Paroxysmal atrial fibrillation - stable. Insulin-dependent diabetes mellitus - stable. Hypothyroidism - stable. 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 The history is obtained from the patient's significant other as she is too altered to provide history. He tells me that she is as with osteosarcoma earlier this year and underwent a right BKA at [facility]. She was hospitalized for over 2 weeks and required ICU care. She was then discharged to [facility] in [place] for therapy. She states she has been started on chemotherapy and her next dose was supposed to be within the next week. He tells me the patient was just discharged this past from [facility] as she was not progressing from physical therapy standpoint due to her pain. She was supposed to get home health but they have not yet seen the patient. He states that this morning she became confused which she states that she has done in the past but this seemed a little worse than usual. He thought it may have been due to her medications as she is on high doses of opiates and she also takes Lyrica. He does help her take the narcotics but otherwise leave the rest of her medications to her to take on her own. This morning she still was confused and so weak he could not get her out of bed so he brought her to the emergency department. He tells me that her cancer has spread to her pelvis and her left lower extremity as well. She is followed by Dr. Bess at [facility]. He believes the patient did receive radiation prior to chemotherapy. She has required transfusions over the past few months due to anemia. He does not believe the patient has made a decision regarding her long-term goals of care and he believes her daughter, Carlee, has medical power of test cell technician. In the emergency department, she is noted to be quite confused and kept repeating the same words. She would not answer questions appropriately. Her urinalysis did suggest potential infection however the count little elevated. She was given ceftriaxone IV. CT the head showed no acute abnormalities. Given the above findings, medicine was consulted for admission. I did discuss goals of care with her daughter, Carlee, who is her medical power of test cell technician. She states mom was not expressed in the past when her goals would be. She wants to discuss with her siblings before making a decision and therefore the patient will be a full code for the time being. - HOSPITAL COURSE Hospital Course: The patient was admitted to the floor due to altered to status of unclear etiology. His CT of the head showed no acute abnormalities. There was concern for potential urinary tract infection and given she could not tell us if she had symptoms or not, she was treated empirically with IV ceftriaxone. Urine culture grew Klebsiella and Proteus and she completed a total of 5 days of antibiotics. Her mentation began to gradually improve over the first 48 hours. She was no longer lethargic but continued to have expressive aphasia. We held her home sedatives including Lyrica and oxycodone. We do not believe that she was misusing her home Lyrica or oxycodone given her pupils have always been dilated and she did not show clinical signs of unintentional opiate overdose. We did obtain an MRI of the brain to look for stroke or metastatic disease but this was unremarkable. We held her Eliquis in anticipation may need to perform a lumbar puncture but on hospital day for she had resolution of her symptoms. She was able to communicate without expressive aphasia and was back to her baseline. We resumed her home Lyrica and oxycodone which she has tolerated well. We did look for any other source of infection given her white blood cell count was increasing slowly and on day of discharge it was 14,000. There was an increase in her eosinophils and it was not clear why. We did check a lactic acid and procalcitonin and these were unremarkable. There was low suspicion for infection as the cause of her leukocytosis. Given that she was back to her baseline cognition for the past 24 hours, she was discharged home with home health via BLS. A POLST form was signed prior to discharge confirming she is a DNR with limited interventions. - ALLERGIES Allergies/Adverse Reactions: Allergies Allergy/AdvReac Type Severity Reaction Status Date / Time naproxen [From Naprosyn] Allergy Intermediate Edema Verified 11/15/21 08:11 piroxicam [From Feldene] Allergy Intermediate Rash Verified 11/15/21 08:11 prednisone Allergy Intermediate Edema Verified 11/15/21 08:11 amoxicillin [From Augmentin] Allergy Unknown Verified 11/15/21 08:11 benzalkonium chloride Allergy Unknown Verified 11/15/21 08:11 [From Medadyne] benzocaine [From Medadyne] Allergy Unknown Verified 11/15/21 08:11 clavulanic acid Allergy Unknown Verified 11/15/21 08:11 [From Augmentin] lidocaine [From Medadyne] Allergy Unknown Verified 11/15/21 08:11 codeine AdvReac Intermediate Emesis Verified 11/15/21 08:11 - MEDICATIONS Home Medications: Ambulatory Orders Medication Instructions Recorded Confirmed Pregabalin [Lyrica] 150 mg PO BID 10/23/12 01/22/22 Levothyroxine Sodium [Synthroid] 150 mcg PO QDAC 03/22/21 01/23/22 ondansetron HCL [Zofran] 8 mg SL Q8HR PRN 03/22/21 01/23/22 Apixaban [Eliquis] 5 mg PO BID 11/15/21 01/22/22 Atorvastatin Calcium 40 mg PO DAILY PM 11/15/21 01/22/22 Insulin Glargine [Lantus Solostar] 8 unit SQ DAILY PM 11/15/21 01/26/22 LORazepam [Ativan] 0.5 mg PO Q6H PRN 11/15/21 01/23/22 Metoprolol Succinate [Toprol Xl] 50 mg PO BID 11/15/21 01/22/22 Omeprazole 40 mg PO DAILY #30 cap 11/15/21 01/22/22 Oxycodone HCl [Oxycodone HCl ER] 20 mg PO BID 11/15/21 01/22/22 Senna [Senokot] 2 tab PO BID 11/15/21 01/23/22 polyethylene glycoL 3350 [Miralax] 17 gm PO DAILY 11/15/21 01/23/22 DULoxetine [Cymbalta] 90 mg PO DAILY 01/22/22 01/22/22 oxyCODONE [Roxicodone] 30 mg PO Q6H 01/22/22 01/22/22 Folic Acid 1 mg PO DAILY 01/23/22 01/23/22 diphenhydrAMINE [Benadryl] 1 - 2 cap PO Q4-6H PRN MDD 4 01/23/22 01/23/22 - PHYSICAL EXAM AT DISCHARGE General Appearance: positive: No acute distress, Alert Eyes Bilateral: positive: Normal inspection, PERRL, Conjunctivae nml ENT: positive: ENT inspection nml Neck: positive: Nml inspection Respiratory: positive: No respiratory distress. negative: Wheezes, Rales Cardiovascular: positive: Regular rate & rhythm. negative: Tachycardia Abdomen: positive: Non-tender, No distention. negative: Tenderness Skin: positive: Warm, Dry Extremities: positive: No pedal edema, Other (Right BKA. 10 x 5 cm mass over the lateral aspect of the left lower extremity superior to the knee.) Neurologic/Psychiatric: positive: Motor nml. negative: Disoriented to person, Disoriented to place, Disoriented to time, Facial droop, Slurred/abnml speech Physical Exam Other/Comments: Vital Signs - 8 hr 01/26/22 01/26/22 01/26/22 07:58 08:15 10:15 Temperature 36.6 C Heart Rate [ 64 Brachial] Respiratory 15 Rate Blood Pressure [Left Brachial artery] Blood Pressure 104/41 L 94/44 L 113/51 L [Left Radial artery] O2 Saturation 94 01/26/22 14:00 Temperature 37.2 C Heart Rate [ 72 Brachial] Respiratory 16 Rate Blood Pressure 110/98 H [Left Brachial artery] Blood Pressure [Left Radial artery] O2 Saturation 98 - LABS Result Diagrams: 01/26/22 06:15 01/26/22 06:15 - DIAGNOSTIC IMAGING Diagnostic Imaging Results: Final report reviewed - FOLLOW UP Follow Up: She was instructed to follow-up with her primary care physician in 1 to 2 weeks and to continue to follow-up with oncology. Outpatient palliative care referral was recommended. - TIME SPENT Time Spent in Discharge (Minutes): 34
[2022-01-26 14:14] VITALS: BP 110/98
[2022-01-26] MEDS ORDERED: APIXABAN 5 MG TABLET PO SCH (21:00)
[2022-01-27] MEDS ORDERED: PANTOPRAZOLE 40 MG TABLET PO SCH (07:00)
[2022-01-27] MEDS ORDERED: DULoxetine 30 MG CAPSULE PO SCH (09:00)
[2022-01-27] MEDS ORDERED: FOLIC ACID 1 MG TABLET PO SCH (09:00)
== END 2022-01-26 14:10 | disposition home health service (06) | DRG 948 ==
LOC: EDSEX → ED 09:20 → MS2 14:02 → OBSVTOIN 01-23 10:41
PROVIDERS: ADMIT Internal Medicine; ATTEND Internal Medicine
DX: R41.82 Altered mental status, unspecified (principal); R53.1 Weakness; N39.0 Urinary tract infection, site not specified; R62.7 Adult failure to thrive; C80.1 Malignant (primary) neoplasm, unspecified; C77.9 Secondary and unspecified malignant neoplasm of lymph node, unspecified; R47.01 Aphasia; D64.9 Anemia, unspecified; D72.829 Elevated white blood cell count, unspecified; C76.51 Malignant neoplasm of right lower limb; Z20.822 Contact with and (suspected) exposure to COVID-19; I48.0 Paroxysmal atrial fibrillation; E03.9 Hypothyroidism, unspecified; E11.9 Type 2 diabetes mellitus without complications; E78.00 Pure hypercholesterolemia, unspecified; F32.A Depression, unspecified; Z79.01 Long term (current) use of anticoagulants; Z79.4 Long term (current) use of insulin; Z79.890 Hormone replacement therapy; Z79.899 Other long term (current) drug therapy; Z89.511 Acquired absence of right leg below knee
CPT/HCPCS: 36415; 70450; 70553; 71045; 80048; 80053; 80306; 81001; 82140; 82607; 82728; 83540; 83605; 83735; 83880; 84100; 84145; 84443; 84466; 84484; 85025; 85610; 87077; 87086; 87181; 87633; 93005; 96361; 96365; 96366; 97163; 97165; 97530; 99281; 99285; A9270; A9585; J1815; J2060; J7120; Q0162; 81003

== ENCOUNTER 2022-02-15 14:53 | Outpatient (CLI) | payer MEDICARE, OTHER | END 2022-02-15 14:54 | disposition critical access hospital (66) | LOC: EMS 14:53 | DX: M25.562 Pain in left knee (principal); L02.416 Cutaneous abscess of left lower limb | CPT/HCPCS: A0425; A0429 ==

== ENCOUNTER 2022-02-15 18:01 | Outpatient (CLI) | payer MEDICARE, OTHER | END 2022-02-15 18:02 | disposition home or self-care (01) | LOC: EMS 18:01 | PROVIDERS: ATTEND Registered Nurse | DX: G89.3 Neoplasm related pain (acute) (chronic) (principal); Z74.01 Bed confinement status; Z89.511 Acquired absence of right leg below knee | CPT/HCPCS: A0425; A0428 ==